=== PATIENT | female | born 1995 | race Caucasian/White ===

== ENCOUNTER → 2019-08-14 14:01 | Outpatient (CLI) | payer BC, SELFPAY ==
--- NOTE | 2019-08-14 14:27 | XR_ITS ---
PROCEDURE: XR CHEST AP CLINICAL HISTORY: chest congestion Cough and congestion COMPARISON: CXR CHEST(2 VIEWS-NOT PORTABLE) from 08/16/2015 CXR1 CHEST-PORTABLE from 08/09/2017 CXR2V XR chest 2V from 10/11/2018 FINDINGS: The cardiomediastinal silhouette and pulmonary vascularity are within normal limits. The lungs are clear without infiltrates, suspicious nodules, or pleural effusions. Roldan rods are present in the mid lower thoracic spine. IMPRESSION: No acute findings. Dictated by: Renzo Kwan MD 08/14/2019 17:59 Electronically signed by Renzo Kwan MD in [place] 08/14/2019 17:59
[2019-08-14 14:37] LABS: Basophils % 0.4 % (0.1-2.0); Eosinophils # 0.1 K/mm3 (0.0-0.4); Eosinophils % 0.7 % (0.1-12.0); Hematocrit 38.4 % (37.0-47.0); Lymphocytes # 1.5 K/mm3 (0.7-4.5); Lymphocytes % 18.2 % (10-50); Mean Corpuscular HGB Conc 31.2 g/dL (31.8-35.4); Mean Corpuscular Hemoglobin 28.2 pg (27.0-31.2); Mean Corpuscular Volume 90.5 fl (81-99); Mean Platelet Volume 7.7 fl (7.4-10.4); Monocytes # 0.6 K/mm3 (0.1-1.0); Neutrophils # 6.1 K/mm3 (1.8-7.8); Neutrophils % 73.8 % (37.0-80.0); Platelet Count 261 K/mm3 (142-424); Red Blood Count 4.25 M/mm3 (4.20-5.40); Red Cell Distribution Width 13.7 % (11.5-17.5); White Blood Count 8.3 K/mm3 (4.8-10.8)
[2019-08-14 15:29] LABS: Monoscreen (Rapid) Negative (Negative)
[2019-08-14 15:46] LABS: Alanine Aminotransferase 11 U/L (12-78); Albumin/Globulin Ratio 1.1 (1.1-1.8); Alkaline Phosphatase 68 U/L (46-116); Anion Gap 15.9 mEq/L (5-15); Aspartate Amino Transferase 8 U/L (15-37); Bilirubin,Total 0.4 mg/dL (0.2-1.0); Blood Urea Nitrogen 12 mg/dL (7-18); Calcium 8.9 mg/dL (8.5-10.1); Carbon Dioxide 27 mmol/L (21.0-32.0); Chloride 102 mmol/L (98-107); Creatinine,Serum 0.63 mg/dL (0.55-1.02); Estimated Glomerular Filt Rate 116 ml/min (>60); GFR (African American) 140 ML/MIN (>60); Globulin 3.7 gm/dl (1.3-3.2); Glucose 85 mg/dL (74-106); Potassium 3.9 mmoL/L (3.5-5.1); Sodium 141 mmol/L (136-145); Total Protein,Serum 7.7 gm/dL (6.4-8.2)
== END ==
PROVIDERS: PCP Emergency Medicine; Visit Provider Nurse Practitioner Family
DX: R05 Cough (principal)
CPT/HCPCS: 36415; 71045; 80053; 85025; 86318

== ENCOUNTER → 2019-10-24 14:27 | Outpatient (CLI) | payer BC, SELFPAY ==
[2019-10-24 15:58] LABS: T4 (Thyroxine) 8.2 ug/dl (4.7-13.3); Thyroid Stimulating Hormone 0.54 uIU/ml (0.358-3.740)
== END ==
PROVIDERS: Visit Provider Nurse Practitioner Family
DX: R53.83 Other fatigue (principal)
CPT/HCPCS: 36415; 84436; 84443

== ENCOUNTER → 2020-07-09 15:34 | Outpatient (CLI) | payer BC, SELFPAY ==
[2020-07-09 16:01] LABS: Coronavirus 19 IgG Antibody Negative (Negative); Coronavirus 19 IgM Antibody Negative (Negative)
== END ==
PROVIDERS: Visit Provider Nurse Practitioner Family
DX: Z01.84 Encounter for antibody response examination (principal)
CPT/HCPCS: 86328

== ENCOUNTER → 2020-09-03 19:15 | Outpatient (CLI) | payer BC, SELFPAY ==
[2020-09-04 08:03] LABS: Adenovirus,PCR Not Detected (NotDetected); Bordetella Pertussis Not Detected (NotDetected); Chlamydophila Pneumoniae, PCR Not Detected (NotDetected); Coronavirus 19, PCR Not Detected (NotDetected); Coronavirus 229E Not Detected (NotDetected); Coronavirus NL63 Not Detected (NotDetected); Coronavirus OC43 Not Detected (NotDetected); Coronovirus HKU1,PCR Not Detected (NotDetected); Human Metapneumovirus Not Detected (NotDetected); Influenza A, PCR Not Detected (NotDetected); Influenza AH1, 2009 Not Detected (NotDetected); Influenza AH1, PCR Not Detected (NotDetected); Influenza AH3,PCR Not Detected (NotDetected); Influenza B, PCR Not Detected (NotDetected); Mycoplasma Pneumoniae, PCR Not Detected (NotDetected); Parainfluenza 1, PCR Not Detected (NotDetected); Parainfluenza 2, PCR Not Detected (NotDetected); Parainfluenza 3, PCR Not Detected (NotDetected); Parainfluenza 4, PCR Not Detected (NotDetected); Respiratory Syncytial Virus Not Detected (NotDetected); Rhinovirus/Enterovirus Not Detected (NotDetected)
== END ==
PROVIDERS: PCP Nurse Practitioner Family; Visit Provider Nurse Practitioner Family
DX: Z03.818 Encounter for observation for suspected exposure to other biological agents ruled out (principal); J02.9 Acute pharyngitis, unspecified; R68.83 Chills (without fever)
CPT/HCPCS: 87581; 87633; 87798; U0003; U0004

== ENCOUNTER → 2020-11-13 19:02 | Outpatient (CLI) | payer BC, SELFPAY ==
--- NOTE | 2020-11-14 05:31 | PC.NURSE ---
this pt called to check on covid swab results before coming to work.
== END ==
PROVIDERS: PCP Physician Assistant; Visit Provider Physician Assistant
DX: Z20.822 Contact with and (suspected) exposure to COVID-19 (principal)
CPT/HCPCS: U0003

== ENCOUNTER → 2020-12-02 15:23 | Outpatient (CLI) | payer BC, SELFPAY ==
--- NOTE | 2020-12-02 15:27 | US_ITS ---
PROCEDURE: US GALLBLADDER CLINICAL INDICATION: us gallbladder COMPARISON: No exams were available for comparison FINDINGS: Pancreas: Unremarkable/Not well seen Liver: Unremarkable. There is appropriate direction of blood flow within a non dilated portal vein. Right kidney: Unremarkable appearing. No hydronephrosis. Gallbladder: No stones are evident. There is no gallbladder wall thickening. Common duct is normal in diameter. IMPRESSION: Negative gallbladder ultrasound. No stones evident. Dictated by: Renzo Kwan MD 12/02/2020 16:22 Renzo Kwan MD in [place] 12/02/2020 16:22
== END ==
PROVIDERS: PCP Nurse Practitioner Family; Visit Provider Nurse Practitioner Family
DX: R10.9 Unspecified abdominal pain (principal)
CPT/HCPCS: 76705

== ENCOUNTER → 2020-12-17 10:19 | Outpatient (CLI) | payer BC, SELFPAY ==
--- NOTE | 2020-12-17 10:19 | NM_ITS ---
PROCEDURE: NM HEPATOBILIARY W PHARM CLINICAL INDICATION: abd pain COMPARISON: Gallbladder ultrasound 12/02/2020 FINDINGS: 8.36 millicuries technetium 99 Choletechnitate was administered followed by image acquisition. Gallbladder is visible by 5 minutes. Duodenum visible by 25 minutes. 1.4 micrograms of cholecystokinin was injected followed by post injection image acquisition which shows 30 minute ejection fraction of 76 percent, within normal limits. Patient experienced mild cramping during cholecystokinin administration. IMPRESSION: Normal exam Dictated by: Karen Sims MD 12/17/2020 14:37 Karen Sims MD in [place] 12/17/2020 14:37
== END ==
PROVIDERS: PCP Nurse Practitioner Family; Visit Provider Nurse Practitioner Family
DX: R10.9 Unspecified abdominal pain (principal)
CPT/HCPCS: 78227; A9537; J2805

== ENCOUNTER → 2020-12-18 11:14 | Outpatient (CLI) | payer BC, SELFPAY ==
[2020-12-20 01:07] LABS: H. pylori Breath Test Negative (Negative)
== END ==
PROVIDERS: Visit Provider Nurse Practitioner Family
DX: R12 Heartburn (principal)
CPT/HCPCS: 83013

== ENCOUNTER → 2020-12-23 11:14 | Outpatient (CLI) | payer BC, SELFPAY ==
[2020-12-23 12:04] LABS: Urine Pregnancy, HCG Qual. Negative (Negative)
[2020-12-23 12:48] LABS: Coronavirus 19 IgG Antibody Positive (Negative); Coronavirus 19 IgM Antibody Negative (Negative)
== END ==
PROVIDERS: Visit Provider Internal Medicine Gastroenterology
DX: Z01.818 Encounter for other preprocedural examination (principal); Z20.822 Contact with and (suspected) exposure to COVID-19; Z13.810 Encounter for screening for upper gastrointestinal disorder; R10.13 Epigastric pain
CPT/HCPCS: 36415; 81025; 86328

== ENCOUNTER 2020-12-25 09:06 | Day surgery (SDC) | payer BC, SELFPAY ==
[2020-12-23 09:55] VITALS: BMI 24.2
[2020-12-25 09:22] VITALS: BP 139/78; PULSE 115; RESP 20; TEMP 36.5; O2SAT 100
[2020-12-25 10:02] VITALS: O2SAT 97
--- NOTE | 2020-12-25 10:16 | P.PCN_ITS ---
[facility] Procedure Note Procedure Note:: Upper Endoscopy Procedure Report: Esophagogastroduodenoscopy with cold biopsies and TTS balloon dilation Endoscopost: Jose Garcia II, MD Referring Physician: Jordan BORGES Date of Procedure: December 25, 2020 Equipment: Olympus GIF 180 standard upper endoscope Sedation: MAC sedation Indications: Ms. Hyde is a 25-year-old female with burning in the epigastrium since August 2020. She also has burning in her throat with some heartburn/reflux. Omeprazole 20 mg by mouth twice daily helps some. She does report nausea, belching and early satiety. She does get this burning dyspepsia on an empty stomach and eating often helps. She does report some globus sensation with frequent clearance of the throat. She also has some chronic constipation/incomplete bowel evacuation. She will have intermittent dysphagia to breads. Procedure: Prior to the procedure, a history and physical exam was performed, and patient's medications and allergies were reviewed. The risks, benefits and alternatives of the sedation and procedure were discussed with the patient. All questions were answered and informed consent was obtained. The patient was brought to the procedure room. Patient identification and proposed procedure were verified by the physician and the nurse. The patient was placed in a left lateral decubitus position and the scope was passed under direct vision. Throughout the procedure, the patient's blood pressure, pulse, and oxygen saturations were monitored continuously. The upper GI endoscopy was accomplished without difficulty. The patient tolerated the procedure well. Findings: The scope was passed directly into the upper esophagus and advanced to the third portion of the duodenum. The post bulbar duodenum and duodenal bulb were normal with normal mucosa and conniventes. The scope was withdrawn through a normal duodenal bulb and pylorus into the stomach. There was bile reflux with linear reactive gastropathy of the antrum. The remainder of the body and fundus of the stomach were grossly normal. Upon retroflexion there was no hiatal hernia. 2 biopsies were taken in the antrum and along the lesser curvature for histology to rule out gastritis and/or H pylori. The scope was then withdrawn into the esophagus. There was a serrated Z-line consistent with nonerosive GERD. Biopsies were taken at the GE junction. There was no evidence of reflux esophagitis, Cook's or Schatzki's ring. There was strong tertiary contractions and evidence of moderate esophageal dysmotility. The entire esophagus was dilated to 60 Polish/20 mm with a TTS hydrostatic balloon. There was some resistance at the cricopharyngeus/cricopharyngeal spasm. The remainder of the esophageal mucosa was normal. Impression: 1. Cricopharyngeal spasm status post dilation to 20 mm 2. Nonerosive GERD with mild esophageal dysmotility 3. Bile reflux with linear reactive gastropathy Plan: I will follow-up the biopsies. The patient does have functional dyspepsia. This is driven by gas pressure gradients due to her obstipation and colonic fermentation. I will discuss dietary measures, fiber bowel regimen and treatment options.
[2020-12-25 10:18] VITALS: BP 93/59; PULSE 86; RESP 18; TEMP 36.5; O2SAT 97
[2020-12-25 10:28] VITALS: BP 99/70; PULSE 70; RESP 18; O2SAT 100
[2020-12-25 10:38] VITALS: BP 101/73; PULSE 68; RESP 18; O2SAT 100
[2020-12-25 11:05] VITALS: BP 104/63; PULSE 68; RESP 18; O2SAT 100
--- NOTE | 2020-12-25 11:05 | PC.NURSE ---
MIRILAX AND METAMUCIL DAILY, DIET SHEET PROVIDED, REGLAN SCRIPT
--- NOTE | 2020-12-25 16:02 | P.PN_ITS ---
[facility] Anesthesia Checklist - Patient Identification Patient Identification: Arm Band, Verbal (Name & ) - Structural Data Admitted From: Home Planned Operative Procedure/s: egd Consent for Planned Operative Procedure(s) Verified: Yes Verified Documents: Surgical Consent - Anesthesia Plan Anesthesia Risk discussed: Yes Anesthesia Plan: Verified ASA Class: I Anesthesia Type: General [facility] History I have reviewed the patient's past medical history: Yes Medical History: Reports:: Anxiety Denies:: Cancer, Diabetes Mellitus Type 1, Diabetes Mellitus Type 2, Internal Pacemaker, MRSA, Seizures *Have you ever received a pneumonia vaccine?: No *Have you received a flu vaccine this season?: Yes Other Medical History: Reports: Other Anesthesia experience/problems:: none Laterality Cases: Bilateral: Other Other Surgeries: Yes: Other. No: Pacemaker Amputation: No Fractures: No - *Social History Last grade of school completed: Advanced degree Smoking Status: Never smoker Alcohol Intake: never Substance Use Type: denies use *Occupational Status:: employed Housing: house Household Members: spouse *Travel in the last 8 weeks: None - Psychiatric History Pschychiatric History:: Reports:: Anxiety Family Hx:: Cancer
== END 2020-12-25 11:06 | disposition home or self-care (01) ==
PROVIDERS: PCP Nurse Practitioner Family; Visit Provider Internal Medicine Gastroenterology
PROC: 0DJ08ZZ Inspection of Upper Intestinal Tract, Via Natural or Artificial Opening Endoscopic (ICD-10-PCS; CPT 43235; principal; 2020-12-25 10:00)
DX: J39.2 Other diseases of pharynx (principal); K21.9 Gastro-esophageal reflux disease without esophagitis; K22.4 Dyskinesia of esophagus; K31.9 Disease of stomach and duodenum, unspecified; F41.9 Anxiety disorder, unspecified; Z80.3 Family history of malignant neoplasm of breast; Z80.1 Family history of malignant neoplasm of trachea, bronchus and lung; Z87.39 Personal history of other diseases of the musculoskeletal system and connective tissue; Z79.899 Other long term (current) drug therapy
CPT/HCPCS: 43239; 43249; C1726

== ENCOUNTER 2021-02-24 14:56 | Emergency (ER) | payer BC, SELFPAY ==
[2021-02-24 15:11] VITALS: BP 134/114; PULSE 97; RESP 16; TEMP 37; O2SAT 100; BMI 23.6
[2021-02-24 15:27] LABS: UTC Strep Screen (Rapid) Negative (Negative)
[2021-02-24 15:28] VITALS: BP 134/114; PULSE 97; RESP 16; TEMP 37; O2SAT 100
--- NOTE | 2021-02-24 15:28 | XR_ITS ---
PROCEDURE: XR CHEST 2V CLINICAL HISTORY: COUGH COMPARISON: CR CXR1 CHEST-PORTABLE from 08/09/2017 CR CXR2V XR chest 2V from 10/11/2018 CR XR CHEST AP from 08/14/2019 FINDINGS: The cardiomediastinal silhouette and pulmonary vascularity are within normal limits. The lungs are clear without infiltrates, suspicious nodules, or pleural effusions. Roldan rods are present in the thoracolumbar region with inter pedicular screws at L1 and L2. IMPRESSION: No change with no acute finding Dictated by: Renzo Kwan MD 02/24/2021 16:09 Renzo Kwan MD in [place] 02/24/2021 16:09
[2021-02-24 15:33] LABS: Adenovirus,PCR Not Detected (NotDetected); Bordetella Pertussis Not Detected (NotDetected); Chlamydophila Pneumoniae, PCR Not Detected (NotDetected); Coronavirus 19, PCR Not Detected (NotDetected); Coronavirus 229E Not Detected (NotDetected); Coronavirus NL63 Not Detected (NotDetected); Coronavirus OC43 Not Detected (NotDetected); Coronovirus HKU1,PCR Not Detected (NotDetected); Human Metapneumovirus Not Detected (NotDetected); Influenza A, PCR Not Detected (NotDetected); Influenza AH1, 2009 Not Detected (NotDetected); Influenza AH1, PCR Not Detected (NotDetected); Influenza AH3,PCR Not Detected (NotDetected); Influenza B, PCR Not Detected (NotDetected); Mycoplasma Pneumoniae, PCR Not Detected (NotDetected); Parainfluenza 1, PCR Not Detected (NotDetected); Parainfluenza 2, PCR Not Detected (NotDetected); Parainfluenza 3, PCR Not Detected (NotDetected); Parainfluenza 4, PCR Not Detected (NotDetected); Respiratory Syncytial Virus Not Detected (NotDetected); Rhinovirus/Enterovirus Not Detected (NotDetected)
--- NOTE | 2021-02-24 15:36 | HMH.EDUTC ---
[facility] [place] Clinical Impression: Acute bronchitis Qualifiers: Bronchitis organism: unspecified organism Qualified Code(s): J20.9 - Acute bronchitis, unspecified Disposition: Home, Self-Care Condition on Discharge: Good Instructions: DI for Acute Bronchitis Additional Instructions: Drink plenty of fluids. Take tylenol or ibuprofen for pain or fever. Take the medications as directed. Follow up with your regular doctor. GO TO THE ER FOR ANY WORSENING SYMPTOMS Prescriptions: Promethazine/Dextromethorphan [Promethazine-Dm Syrup] 5 ml PO Q6HP PRN #240 syrup PRN Reason: Cough Transmission Status: Received by [id number] methylPREDNISolone [Medrol] 4 mg PO DIRECTED 6 Days #21 tab.ds.pk Transmission Status: Received by [id number] Azithromycin [Z-Reese 250mg Tab*] 250 mg PO UD DOSE PK #6 tab Transmission Status: Received by [id number] Time of Disposition: 16:04 Medical Decision Making - Medical Records Medical records reviewed: No: I reviewed the patient's medical records. - Bobby Inquiry Pt receiving controlled substance: No Vital Signs: 02/24/21 15:11 02/24/21 15:28 Temperature 98.6 F 98.6 F Temperature Source Oral Pulse Rate 97 H Pulse Rate [Left] 97 H Respiratory Rate 16 16 Blood Pressure 134/114 H Blood Pressure [Right Arm] 134/114 H Blood Pressure Mean [Right Arm] 120 Blood Pressure Source [Right Arm] Automatic Cuff Blood Pressure Position [Right Arm] Sitting 02 Sat by Pulse Oximetry 100 Oxygen Delivery Method Room Air - Lab Data Lab Results 02/24/21 15:00: Chlamy pneumoniae PCR Not detected, Adenovirus (PCR) Not detected, B. pertussis DNA (PCR) Not detected, Coronavirus OC43 (PCR) Not detected, Coronavirus HKU1 (PCR) Not detected, Coronavirus 229E (PCR) Not detected, SARS-CoV-2 (PCR) Not detected, Coronavirus NL63 (PCR) Not detected, Human Metapneumovir PCR Not detected, Influenza A (H1) PCR Not detected, Influ A (H1N1/09) PCR Not detected, Influenza A (H3) PCR Not detected, Influenza Type A (PCR) Not detected, Influenza Type B (PCR) Not detected, M. pneumoniae (PCR) Not detected, Parainfluenza 1 (PCR) Not detected, Parainfluenza 2 (PCR) Not detected, Parainfluenza 3 (PCR) Not detected, Parainfluenza 4 (PCR) Not detected, RSV (PCR) Not detected, Entero/Rhino (PCR) Not detected 02/24/21 15:25: Strep Scn Rapid Clinic Negative Orders (Tests/Meds): ORDERS Category Date Time Status Strep Screen Confirmation Stat Micro 02/24/21 15:25 Received [facility] [place] HPI - General Stated complaint: cough,fever Time Seen by Provider: 02/24/21 15:36 Mode of Arrival: Ambulatory Source of Information: Patient Limitations: No Limitations Description of Symptoms (Recalled from Triage Doc. by RN): Cough, fever and congestion HEENT Symptoms (Recalled from RN notes): Yes Resp Symptoms (Recalled from RN notes): Yes Skin Symptoms (Recalled from RN notes): No MS Symptoms (Recalled from RN notes): No Functional Status (Recalled from RN notes): wnl - History of Present Illness Provider Complaint: She states that for the past 2 days she has had chest congestion and sinus congestion. 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 - Related Data Home Medications Medication Instructions Recorded Confirmed Buspirone HCl [Buspar 5mg tablet] 5 mg PO BID 12/23/20 12/23/20 Omeprazole [Omeprazole 20mg 20 mg PO BID 12/23/20 12/23/20 Capsule] Previous Rx's Medication Instructions Recorded Azithromycin [Z-Reese 250mg Tab*] 250 mg PO UD DOSE PK #6 tab 02/24/21 Promethazine/Dextromethorphan 5 ml PO Q6HP PRN #240 syrup 02/24/21 [Promethazine-Dm Syrup] methylPREDNISolone [Medrol] 4 mg PO DIRECTED 6 Days #21 02/24/21 tab.ds.pk Allergies Allergy/AdvReac Type Severity Reaction Status Date / Time No Known Allergies Allergy Verified 02/24/21 15:15 - Worker's Comp 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
== END 2021-02-24 16:06 | disposition home or self-care (01) ==
PROVIDERS: Emergency Provider Nurse Practitioner Family; PCP Nurse Practitioner Family
DX: J20.9 Acute bronchitis, unspecified (principal); Z20.822 Contact with and (suspected) exposure to COVID-19; F41.9 Anxiety disorder, unspecified; Z79.899 Other long term (current) drug therapy
CPT/HCPCS: 71046; 87581; 87633; 87798; 87880; 99202; G0463

== ENCOUNTER → 2021-03-22 09:49 | Outpatient (POV) | payer BC, SELFPAY | PROVIDERS: Visit Provider Nurse Practitioner Family | DX: Z00.00 Encounter for general adult medical examination without abnormal findings (principal) ==

== ENCOUNTER → 2021-04-14 14:46 | Outpatient (CLI) | payer OTHER, SELFPAY ==
[2021-04-14 18:05] LABS: HCG,Quantitative 86 mIU/ml (0-5.42)
== END ==
PROVIDERS: Visit Provider Obstetrics & Gynecology
DX: Z32.01 Encounter for pregnancy test, result positive (principal)
CPT/HCPCS: 36415; 84702

== ENCOUNTER → 2021-04-16 10:15 | Outpatient (CLI) | payer OTHER, SELFPAY ==
[2021-04-16 11:48] LABS: HCG,Quantitative 241 mIU/ml (0-5.42)
== END ==
PROVIDERS: Visit Provider Obstetrics & Gynecology
DX: Z32.01 Encounter for pregnancy test, result positive (principal)
CPT/HCPCS: 36415; 84702

== ENCOUNTER → 2021-05-01 10:13 | Outpatient (CLI) | payer OTHER, SELFPAY ==
[2021-05-01 11:00] LABS: HCG,Quantitative 1086 mIU/ml (0-5.42)
== END ==
PROVIDERS: Visit Provider Obstetrics & Gynecology
DX: Z32.00 Encounter for pregnancy test, result unknown (principal)
CPT/HCPCS: 36415; 84702

== ENCOUNTER → 2021-05-04 09:24 | Outpatient (CLI) | payer OTHER, SELFPAY ==
[2021-05-04 10:57] LABS: HCG,Quantitative 236 mIU/ml (0-5.42)
== END ==
PROVIDERS: Visit Provider Obstetrics & Gynecology
DX: Z34.90 Encounter for supervision of normal pregnancy, unspecified, unspecified trimester (principal)
CPT/HCPCS: 36415; 84702

== ENCOUNTER 2021-07-21 19:16 | Emergency (ER) | payer OTHER, SELFPAY ==
[2021-07-21 19:19] VITALS: BP 137/91; PULSE 96; RESP 18; TEMP 36.6; O2SAT 100; BMI 25.0
[2021-07-21 19:30] LABS: Coronavirus 19, PCR Not Detected (NotDetected); Influenza A, PCR Not Detected (NotDetected); Influenza B, PCR Not Detected (NotDetected)
--- NOTE | 2021-07-21 19:30 | HMH.EDUTC ---
[facility] [place] Clinical Impression: Sinusitis Qualifiers: Sinusitis location: unspecified location Chronicity: unspecified Qualified Code(s): J32.9 - Chronic sinusitis, unspecified Disposition: Home, Self-Care Condition on Discharge: Good Instructions: Sinusitis, DI for Sinusitis, Amoxicillin and Clavulanic Acid Additional Instructions: *Monitor Temp, Over the counter Motrin or Tylenol as directed/as needed Tylenol every 4 hours and Motrin every 6 hours (as long as your family doctor has told you that you can take it) for fever or pain. and straight to ER if unable to lower temp less than 101.0 after medication given *Warm salt water gargles may help to soothe the throat *Throat Lozenges *Warm fluids like tea with honey may help to soothe the throat *Sleep elevated *Humidifier/Vaporizer Take medication as prescribed Follow up with OBGYN for further evaluation Follow up IMMEDIATELY for new or worsening symptoms or no Noticeable improvement over the next 48-72 hours. 911 for difficulty breathing or swallowing You were tested for today for COVID19 your test result should be back in the next 24-48 hours, you was give handout on how to check your results on [facility] Portal if you are unable to access it you may call You was given a handout with instructions for Self Quarantine and Self isolation for while you wait on test results and what to do if they are positive If you are positive the Health Dept will be contacting you also Make sure to take your Vitamins Vit. C Vit D and Zinc if you can take them Prescriptions: Amoxicillin/Potassium Clav [Augmentin 875-125 Tablet] 1 tab PO Q12H 7 Days #14 tab Transmission Status: Received by [id number] Referrals: Delfino Tovar APRN [Primary Care Provider] - As needed Alley Trotter MD [Staff Physician] - Wagner Veronica MD [Staff Physician] - Time of Disposition: 20:13 Medical Decision Making - Bobby Inquiry Pt receiving controlled substance: No Bobby was queried for this patient: No Vital Signs: 07/21/21 19:19 07/21/21 19:53 Temperature 97.9 F 97.9 F Temperature Source Oral Pulse Rate 96 H Pulse Rate [Left] 96 H Respiratory Rate 18 18 Blood Pressure 137/91 H Blood Pressure [Right Arm] 137/91 H Blood Pressure Mean [Right Arm] 106 02 Sat by Pulse Oximetry 100 - Lab Data Lab results reviewed: Yes: I reviewed the patient's lab results. Lab Results 07/21/21 19:25: SARS-CoV-2 (PCR) Not detected, Influenza A Untype (PCR) Not detected, Influenza Type B (PCR) Not detected 07/21/21 19:30: Tst Clinic Positive 07/21/21 19:48: Serum HCG, Qual Positive Orders (Tests/Meds): ED MEDICATIONS Discontinued Medications Generic Name Dose Route Start Last Admin Trade Name Freq PRN Reason Stop Dose Admin Amoxicillin/Clavulanate Potassium 1 each 07/21/21 20:11 07/21/21 20:15 Amoxicillin/Pot Clavulan 500mg Tablet PO 07/21/21 20:12 1 each ONCE ONE Administration ORDERS Category Date Time Status HCG,Quantitative Stat Lab 07/21/21 19:48 Received Medical Decision Narrative: Urine test in [facility] showed positive result Quantitative and Qualitative blood drawn for confirmation Medication augmentin discussed with pharmacy to assure baby safe due to positive Urine in [facility] patient quant/qual not complete called lab and adbised would still be about 20 min before done and patient advised that she would call back to the [facility] for the results Patient notifed of Qualitative positive result an recommended follow up with OBGYN [facility] [place] - General Stated complaint: cough, sinus pressure Time Seen by Provider: 07/21/21 19:31 Mode of Arrival: Ambulatory Source of Information: Patient Limitations: No Limitations Description of Symptoms (Recalled from Triage Doc. by RN): PT C/O A DRY COUGH, CONGESTION AND SINUS PRESSURE. HEENT Symptoms (Recalled from RN notes): Yes (SINUS PRESSURE AND CONGESTION) Resp Symptoms (Recall
[2021-07-21 19:53] VITALS: BP 137/91; PULSE 96; RESP 18; TEMP 36.6
[2021-07-21 19:54] LABS: UTC Pregnancy Test, Urine Positive (Negative)
[2021-07-21 20:26] LABS: HCG Qualitative, Serum Positive (Negative)
[2021-07-21 20:44] LABS: HCG,Quantitative 27 mIU/ml (0-5.42)
== END 2021-07-21 20:47 | disposition home or self-care (01) ==
PROVIDERS: Emergency Provider Nurse Practitioner; PCP Nurse Practitioner Family
DX: J32.9 Chronic sinusitis, unspecified (principal); Z20.822 Contact with and (suspected) exposure to COVID-19; Z34.90 Encounter for supervision of normal pregnancy, unspecified, unspecified trimester; F41.9 Anxiety disorder, unspecified
CPT/HCPCS: 81025; 84702; 84703; 99202; C9803; G0463; U0003; U0005

== ENCOUNTER → 2021-07-26 11:02 | Outpatient (CLI) | payer OTHER, SELFPAY ==
[2021-07-26 12:52] LABS: HCG,Quantitative 248 mIU/ml (0-5.42)
== END ==
PROVIDERS: Visit Provider Obstetrics & Gynecology
DX: Z34.90 Encounter for supervision of normal pregnancy, unspecified, unspecified trimester (principal)
CPT/HCPCS: 36415; 84702

== ENCOUNTER → 2021-08-01 13:34 | Outpatient (CLI) | payer OTHER, SELFPAY ==
[2021-08-01 14:25] LABS: HCG,Quantitative 2817 mIU/ml (0-5.42)
== END ==
PROVIDERS: Visit Provider Obstetrics & Gynecology
DX: Z34.90 Encounter for supervision of normal pregnancy, unspecified, unspecified trimester (principal)
CPT/HCPCS: 84702

== ENCOUNTER → 2021-08-18 12:47 | Outpatient (CLI) | payer OTHER, SELFPAY ==
--- NOTE | 2021-08-18 12:47 | US_ITS ---
PROCEDURE: US OB <= 14 WEEKS FETUS CLINICAL INDICATION: dates COMPARISON: No exams were available for comparison FINDINGS: An intrauterine gestational sac is present with a pole with a crown-rump length of 1.15cm correlating to gestational age of 7weeks 3days. heart tones are present with an FHR of 141bpm. Yolk sac is noted. There is a small amount of cul-de-sac fluid. There is prominent periuterine vasculature IMPRESSION: Live IUP at 7 weeks 3 days. Estimated due date by Ultrasound is 04/03/2022 Dictated by: Renzo Kwan MD 08/18/2021 19:11 Renzo Kwan MD in [place] 08/18/2021 19:11
== END ==
PROVIDERS: PCP Nurse Practitioner Family; Visit Provider Obstetrics & Gynecology
DX: Z34.90 Encounter for supervision of normal pregnancy, unspecified, unspecified trimester (principal)
CPT/HCPCS: 76801

== ENCOUNTER → 2021-08-26 14:47 | Outpatient (CLI) | payer OTHER, SELFPAY ==
[2021-08-26 15:33] LABS: Basophils % 0.4 % (0.1-2.0); Eosinophils # 0.1 K/mm3 (0.0-0.4); Eosinophils % 1.4 % (0.1-12.0); Hematocrit 40.2 % (37.0-47.0); Hemoglobin 13.5 g/dL (12.2-16.2); Lymphocytes # 2.3 K/mm3 (0.7-4.5); Lymphocytes % 29.3 % (10-50); Mean Corpuscular HGB Conc 33.5 g/dL (31.8-35.4); Mean Corpuscular Hemoglobin 30.6 pg (27.0-31.2); Mean Corpuscular Volume 91.2 fl (81-99); Mean Platelet Volume 7.8 fl (7.4-10.4); Monocytes # 0.4 K/mm3 (0.1-1.0); Monocytes % 5.3 % (1.7-9.3); Neutrophils # 4.9 K/mm3 (1.8-7.8); Neutrophils % 63.5 % (37.0-80.0); Platelet Count 319 K/mm3 (142-424); Red Blood Count 4.41 M/mm3 (4.20-5.40); Red Cell Distribution Width 12.9 % (11.5-17.5); White Blood Count 7.7 K/mm3 (4.8-10.8)
[2021-08-26 16:14] LABS: Amphetamine/Metha Screen,Urine Negative ng/ml (<1000)
[2021-08-26 16:15] LABS: Barbiturates Screen,Urine Negative ng/ml (<200); Benzodiazepines Screen,Urine Negative ng/ml (<200)
[2021-08-26 16:16] LABS: Cannabinoid Screen,Urine Negative ng/ml (<50)
[2021-08-26 16:17] LABS: Cocaine Screen,Urine Negative ng/ml (<300); Methadone Screen,Urine Negative ng/ml (<300)
[2021-08-26 16:18] LABS: Opiate Screen,Urine Negative ng/ml (<300); Phencyclidine Screen,Urine Negative ng/ml (<25)
[2021-08-28 08:13] LABS: HIV Screen 4th Generation wRfx Non Reactive (Non Reactive); Hepatitis B Surface Antigen Negative (Negative); Hepatitis C Antibody <0.1 s/co ratio (0.0-0.9)
[2021-08-28 10:32] LABS: Rapid Plasma Reagin Ab Titer Non Reactive (NonRea<1:1)
[2021-08-29 07:22] LABS: Rubella Antibodies, IgG 2.27 index (Immune >0.99)
== END ==
PROVIDERS: Visit Provider Obstetrics & Gynecology
DX: Z34.90 Encounter for supervision of normal pregnancy, unspecified, unspecified trimester (principal)
CPT/HCPCS: 36415; 80305; 85025; 86592; 86703; 86762; 86850; 87340; 87380; G0432

== ENCOUNTER → 2021-09-22 20:29 | Outpatient (CLI) | payer OTHER, SELFPAY ==
[2021-09-22 20:33] LABS: Coronavirus 19, PCR Not Detected (NotDetected); Influenza A, PCR Not Detected (NotDetected); Influenza B, PCR Not Detected (NotDetected)
== END ==
PROVIDERS: Visit Provider Nurse Practitioner Family
DX: Z20.822 Contact with and (suspected) exposure to COVID-19 (principal)
CPT/HCPCS: C9803; U0003; U0005

== ENCOUNTER → 2021-11-11 14:47 | Outpatient (CLI) | payer OTHER, SELFPAY ==
--- NOTE | 2021-11-11 14:47 | US_ITS ---
FINAL REPORT CLINICAL HISTORY: 20 week anatomy FINDINGS: Sonographic images of the gravid uterus were obtained. There is a single living intrauterine . Heart rate was detected at 146 bpm. The biparietal diameter is 4.74 cm consistent with 20 week 3 day gestation. The head circumference is 17.13 centimeters consistent with 19 weeks 6 day gestation. The abdominal circumference is 14.62 cm consistent with 20 weeks 0 day gestation. The femur length is 3.17 cm consistent with 19 week 6 day gestation. The average ultrasound age is 20 week 1 day gestation. The fetus is in breech position. The placenta is anterior. There is a normal amount of amniotic fluid present. The estimated weight is 319 g. IMPRESSION: Single living intrauterine . Reviewed, Interpreted and Dictated by Gianfranco Armando III, MD Transcribed by Izabella Moss Authenticated by Gianfranco Armando III, MD on 11/11/2021 04:36:45 PM [facility]
== END ==
PROVIDERS: PCP Nurse Practitioner Family; Visit Provider Obstetrics & Gynecology
DX: Z34.90 Encounter for supervision of normal pregnancy, unspecified, unspecified trimester (principal)
CPT/HCPCS: 76805

== ENCOUNTER → 2021-12-10 16:00 | Outpatient (CLI) | payer OTHER, SELFPAY | PROVIDERS: Visit Provider Obstetrics & Gynecology | DX: U07.1 COVID-19 (principal) | CPT/HCPCS: C9803; U0003; U0005 ==

== ENCOUNTER 2021-12-18 08:43 | Outpatient (CLI) | payer OTHER, SELFPAY ==
[2021-12-18 09:03] VITALS: BMI 27.4
[2021-12-18 09:15] VITALS: BMI 27.4
[2021-12-18 09:21] LABS: POC Glucose,Bedside 78 (70-110)
[2021-12-18 09:35] VITALS: BP 117/77; PULSE 94; RESP 20; TEMP 36.9; O2SAT 100
[2021-12-18 09:59] LABS: Basophils % 0.3 % (0.1-2.0); Eosinophils # 0.2 K/mm3 (0.0-0.4); Eosinophils % 2.3 % (0.1-12.0); Hematocrit 34.4 % (37.0-47.0); Hemoglobin 11.6 g/dL (12.2-16.2); Lymphocytes # 1.5 K/mm3 (0.7-4.5); Lymphocytes % 20.1 % (10-50); Mean Corpuscular HGB Conc 33.8 g/dL (31.8-35.4); Mean Corpuscular Hemoglobin 29.7 pg (27.0-31.2); Mean Corpuscular Volume 87.8 fl (81-99); Mean Platelet Volume 7.5 fl (7.4-10.4); Monocytes # 0.3 K/mm3 (0.1-1.0); Monocytes % 3.4 % (1.7-9.3); Neutrophils # 5.4 K/mm3 (1.8-7.8); Neutrophils % 73.9 % (37.0-80.0); Platelet Count 235 K/mm3 (142-424); Red Blood Count 3.91 M/mm3 (4.20-5.40); Red Cell Distribution Width 13.9 % (11.5-17.5); White Blood Count 7.3 K/mm3 (4.8-10.8)
[2021-12-18 10:00] LABS: Chloride 102 mmol/L (98-107); Sodium 131 mmol/L (136-145)
[2021-12-18 10:03] LABS: Blood Urea Nitrogen 8 mg/dl (7-17); Calcium 8.4 mg/dl (8.4-10.2); Carbon Dioxide 25 mmol/L (22.0-30.0); Creatinine Clearance Estimated 259 mL/min (50-200); Estimated Glomerular Filt Rate 193 ml/min (>60); GFR (African American) 233 ML/MIN (>60); Glucose 84 mg/dl (74-100)
== END 2021-12-18 11:10 | disposition home or self-care (01) ==
LOC: OBOUT 08:44 → OB 09:02
PROVIDERS: Nurse Practitioner Obstetrics & Gynecology; PCP Nurse Practitioner Family; Visit Provider Obstetrics & Gynecology
DX: O26.892 Other specified pregnancy related conditions, second trimester (principal); Z3A.25 25 weeks gestation of pregnancy; R42 Dizziness and giddiness; R11.0 Nausea
CPT/HCPCS: 59025; 80048; 82962; 85025; 96365; G0463

== ENCOUNTER → 2021-12-21 15:42 | Outpatient (CLI) | payer OTHER, SELFPAY | PROVIDERS: Visit Provider Obstetrics & Gynecology | DX: Z34.90 Encounter for supervision of normal pregnancy, unspecified, unspecified trimester (principal) | CPT/HCPCS: 87086 ==

== ENCOUNTER → 2022-01-06 09:51 | Outpatient (CLI) | payer OTHER, SELFPAY ==
[2022-01-06 10:16] LABS: Basophils # 0.1 K/mm3 (0-0.2); Eosinophils # 0.2 K/mm3 (0.0-0.4); Eosinophils % 2.2 % (0.1-12.0); Hematocrit 34.6 % (37.0-47.0); Hemoglobin 11.5 g/dL (12.2-16.2); Lymphocytes # 1.7 K/mm3 (0.7-4.5); Lymphocytes % 22.1 % (10-50); Mean Corpuscular HGB Conc 33.1 g/dL (31.8-35.4); Mean Corpuscular Volume 90.6 fl (81-99); Monocytes # 0.3 K/mm3 (0.1-1.0); Monocytes % 3.9 % (1.7-9.3); Neutrophils # 5.5 K/mm3 (1.8-7.8); Neutrophils % 70.8 % (37.0-80.0); Platelet Count 220 K/mm3 (142-424); Red Blood Count 3.82 M/mm3 (4.20-5.40); Red Cell Distribution Width 15.5 % (11.5-17.5); White Blood Count 7.8 K/mm3 (4.8-10.8)
[2022-01-06 10:32] LABS: Glucose,Fasting 79 mg/dl (74-100)
[2022-01-06 11:47] LABS: Glucose 1 Hour 135 mg/dL (74-100)
== END ==
PROVIDERS: Visit Provider Obstetrics & Gynecology
DX: Z34.90 Encounter for supervision of normal pregnancy, unspecified, unspecified trimester (principal)
CPT/HCPCS: 36415; 82951; 85025

== ENCOUNTER 2022-01-14 09:44 | Emergency (ER) | payer OTHER, SELFPAY ==
[2022-01-14 11:15] VITALS: BP 117/85; PULSE 109; RESP 20; TEMP 37.2; O2SAT 97; BMI 28.4
[2022-01-14 12:11] LABS: UTC Strep Screen (Rapid) Positive (Negative)
--- NOTE | 2022-01-14 12:32 | HMH.EDUTC ---
[facility] [place] Disposition Clinical Impression: Strep pharyngitis, Right otitis media Qualifiers: Otitis media type: suppurative Chronicity: acute Recurrence: recurrent Spontaneous tympanic membrane rupture: without spontaneous rupture Qualified Code(s): H66.004 - Acute suppurative otitis media without spontaneous rupture of ear drum, recurrent, right ear Disposition: Home, Self-Care Condition on Discharge: Good Instructions: DI for Strep Throat Additional Instructions: Take all medicines as prescribed until gone Replace toothbrush Prescriptions: Amoxicillin [Amoxicillin 875MG Tab] 875 mg PO Q12H #20 tab Transmission Status: Pending to [facility] Fluconazole [Diflucan 150mg tab] 150 mg PO ONCE 1 Days #1 tab Transmission Status: Pending to [facility] Referrals: Delfino Tovar APRN [Primary Care Provider] - Time of Disposition: 12:37 Medical Decision Making - Bobby Inquiry Pt receiving controlled substance: No Vital Signs: 01/14/22 11:15 Temperature 99.0 F Temperature Source Oral Pulse Rate [Right Brachial] 109 H Respiratory Rate 20 Blood Pressure [Right Arm] 117/85 Blood Pressure Mean [Right Arm] 95 Blood Pressure Source [Right Arm] Automatic Cuff Blood Pressure Position [Right Arm] Sitting 02 Sat by Pulse Oximetry 97 Oxygen Delivery Method Room Air - Lab Data Lab results reviewed: Yes: I reviewed the patient's lab results. Lab Results 01/14/22 11:28: Strep Scn Rapid Clinic Positive [facility] [place] HPI - General Stated complaint: sore throat, ear pain, fever Time Seen by Provider: 01/14/22 12:32 Mode of Arrival: Ambulatory Source of Information: Patient Limitations: No Limitations Description of Symptoms (Recalled from Triage Doc. by RN): PATIENT C/O SORE THROAT, EAR ACHE AND FEVER SINCE MONDAY HEENT Symptoms (Recalled from RN notes): Yes Resp Symptoms (Recalled from RN notes): No Skin Symptoms (Recalled from RN notes): No MS Symptoms (Recalled from RN notes): No Functional Status (Recalled from RN notes): WNL - History of Present Illness Provider Complaint: Right ear pain, sore throat, fever X 3 days. Patient is also . Onset (ago): day(s) (3) Relieving factors: none Exacerbating factors: none Associated symptoms: fever/chills, malaise Treatments prior to arrival: none - Related Data Home Medications Medication Instructions Recorded Confirmed Buspirone HCl [Buspar 5mg tablet] 5 mg PO BID 01/14/22 01/14/22 Previous Rx's Medication Instructions Recorded Amoxicillin [Amoxicillin 875MG 875 mg PO Q12H #20 tab 01/14/22 Tab] Fluconazole [Diflucan 150mg tab] 150 mg PO ONCE 1 Days #1 tab 01/14/22 Allergies Allergy/AdvReac Type Severity Reaction Status Date / Time No Known Allergies Allergy Verified 12/21/21 13:26 - Worker's Comp 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's Comp case?: No [facility] History - Hepatitis A Screen Drug use history?: No High risk sexual behaviors?: No History of sexually transmitted infection?: No Currently employed?: No Childcare worker?: No Do you have indoor plumbing?: Yes Do you have electricity?: Yes Attestation statement:: This patient has been screened for Hepatitis A risk factors. I have reviewed the patient's past medical history: Yes Medical History: Reports:: Anxiety Denies:: Cancer, Diabetes Mellitus Type 1, Diabetes Mellitus Type 2, Internal Pacemaker, MRSA, Seizures Other Medical History: Reports: Other Comment: Scoliosis Laterality Cases: Bilateral: Myringotomy (Ear Tubes), Other Other Surgeries: Yes: Other. No: , Pacemaker Amputation: No Fractures: No Comment: spinal fusion, 2006 - Social History Smoking Status: Never smoker Alcohol Intake: never Substance Use Type: denies use Occupational Status: employed Housing: house Household Members: spouse - Psychiatric History Pschychiatric History:: Reports:: Anxiety Family Hx:: Cancer ROS Obtained: Yes All systems reviewed &
[2022-01-14 12:41] VITALS: BP 117/85; PULSE 109; RESP 20; TEMP 37.2; O2SAT 97
== END 2022-01-14 12:44 | disposition home or self-care (01) ==
PROVIDERS: Emergency Provider Physician Assistant; PCP Nurse Practitioner Family
DX: J02.0 Streptococcal pharyngitis (principal); B95.0 Streptococcus, group A, as the cause of diseases classified elsewhere; H66.004 Acute suppurative otitis media without spontaneous rupture of ear drum, recurrent, right ear; F41.9 Anxiety disorder, unspecified; Z98.1 Arthrodesis status; Z95.0 Presence of cardiac pacemaker; Z80.9 Family history of malignant neoplasm, unspecified
CPT/HCPCS: 87880; 99213; G0463

== ENCOUNTER → 2022-01-17 13:48 | Outpatient (CLI) | payer OTHER, SELFPAY | PROVIDERS: Visit Provider Obstetrics & Gynecology | DX: Z34.90 Encounter for supervision of normal pregnancy, unspecified, unspecified trimester (principal) | CPT/HCPCS: 87086 ==

== ENCOUNTER → 2022-02-15 13:47 | Outpatient (CLI) | payer OTHER, SELFPAY ==
--- NOTE | 2022-02-15 13:48 | US_ITS ---
FINAL REPORT CLINICAL HISTORY: Growth and JESENIA FINDINGS: There is a single live intrauterine gestation. Presentation is cephalic. Placenta is anterior, high, grade 2. movement in practice breathing is seen. Heart rate is 140 beats per minute. AMNIOTIC FLUID: Appropriate amount. JESENIA: 10.4 cm MEASUREMENTS: ULTRASOUND AGE: 34 weeks 2 days. GESTATION AGE: 33 weeks 2 days. ESTIMATED WEIGHT: 2355 g GROWTH PERCENTILE: 68% BPD: 8.5 cm corresponding with 34 weeks 1 days. OFD: 11 cm corresponding with 35 weeks 3 days. HC: 30.1 cm corresponding with 34 weeks 3 days. AC: 30.2 cm corresponding with 34 weeks 2 days. FL: 6.7 cm corresponding with 34 weeks 0 days. HC/AC: 1.02 CI: 77% FL/BPD: 78% FL/AC: 22% BIOPHYSICAL PROFILE BREATHIN MOVEMENT: 2 TONE: 2 FLUID VOLUME: 2 BPP: 06/06 IMPRESSION: Single living IUP with an ultrasound age of 34 weeks 2 days. JESENIA of 10.4 cm. BPP 06/06 Reviewed, Interpreted and Dictated by Gianfranco Armando III, MD Transcribed by Marielena Campos Authenticated by Gianfranco Armando III, MD on 02/15/2022 04:37:20 PM [facility]
== END ==
PROVIDERS: PCP Nurse Practitioner Family; Visit Provider Obstetrics & Gynecology
DX: O36.5990 Maternal care for other known or suspected poor fetal growth, unspecified trimester, not applicable or unspecified (principal)
CPT/HCPCS: 76816

== ENCOUNTER → 2022-03-01 09:41 | Outpatient (CLI) | payer OTHER, SELFPAY | PROVIDERS: Visit Provider Obstetrics & Gynecology | DX: Z34.90 Encounter for supervision of normal pregnancy, unspecified, unspecified trimester (principal) | CPT/HCPCS: 86403 ==

== ENCOUNTER → 2022-03-22 12:02 | Outpatient (CLI) | payer OTHER, SELFPAY | PROVIDERS: Visit Provider Obstetrics & Gynecology | DX: Z01.812 Encounter for preprocedural laboratory examination (principal); Z20.822 Contact with and (suspected) exposure to COVID-19; Z34.90 Encounter for supervision of normal pregnancy, unspecified, unspecified trimester | CPT/HCPCS: C9803; U0003; U0005 ==

== ENCOUNTER 2022-03-23 04:47 | Inpatient (IN) | payer OTHER, SELFPAY ==
[2022-03-23 05:00] VITALS: BMI 29.6
[2022-03-23 05:40] LABS: Microscopic, Urine URINE MICROSCOPIC (MICROSCOPIC)
[2022-03-23 05:42] VITALS: BP 106/73; PULSE 119; RESP 18; TEMP 36.9; O2SAT 98; BMI 29.6
[2022-03-23 05:44] LABS: Appearance,Urine CLEAR (Clear); Bilirubin,Urine Negative (Negative); Blood, Urine TRACE-I (Negative); Color,Urine YELLOW (Yellow); Glucose,Urine (UA) Negative (Negative); Ketones,Urine TRACE (Negative); Leukocyte Esterase,Urine Negative (Negative); Nitrate,Urine Negative (Negative); Protein,Urine Negative (Negative); Specific Gravity, Urine 1.015 (1.005-1.030); Urobilinogen,Urine 0.2 EU/dl (0.2)
[2022-03-23 05:47] LABS: Basophils # 0.1 K/mm3 (0-0.2); Basophils % 1.3 % (0.1-2.0); Eosinophils # 0.1 K/mm3 (0.0-0.4); Eosinophils % 1.2 % (0.1-12.0); Hematocrit 34.1 % (37.0-47.0); Lymphocytes # 2.1 K/mm3 (0.7-4.5); Lymphocytes % 23.3 % (10-50); Mean Corpuscular HGB Conc 35.2 g/dL (31.8-35.4); Mean Corpuscular Hemoglobin 30.6 pg (27.0-31.2); Mean Corpuscular Volume 87.1 fl (81-99); Mean Platelet Volume 8.6 fl (7.4-10.4); Monocytes # 0.5 K/mm3 (0.1-1.0); Monocytes % 5.5 % (1.7-9.3); Neutrophils # 6.1 K/mm3 (1.8-7.8); Neutrophils % 68.7 % (37.0-80.0); Platelet Count 215 K/mm3 (142-424); Red Blood Count 3.92 M/mm3 (4.20-5.40); Red Cell Distribution Width 15.8 % (11.5-17.5); White Blood Count 8.8 K/mm3 (4.8-10.8)
[2022-03-23 05:55] LABS: Barbiturates Screen,Urine Negative ng/ml (<200)
[2022-03-23 05:56] LABS: Benzodiazepines Screen,Urine Negative ng/ml (<200)
[2022-03-23 05:57] LABS: Amphetamine/Metha Screen,Urine Negative ng/ml (<1000); Cannabinoid Screen,Urine Negative ng/ml (<50)
[2022-03-23 05:58] LABS: Cocaine Screen,Urine Negative ng/ml (<300); Methadone Screen,Urine Negative ng/ml (<300)
[2022-03-23 05:59] LABS: Opiate Screen,Urine Negative ng/ml (<300)
[2022-03-23 06:00] LABS: Phencyclidine Screen,Urine Negative ng/ml (<25)
[2022-03-23 06:12] LABS: RBC,Urine Occasional #/hpf (0-3)
[2022-03-23 06:13] LABS: Bacteria,Urine 3+ /lpf
[2022-03-23 07:21] VITALS: BP 115/78; PULSE 103; RESP 16; TEMP 36.6; O2SAT 100
--- NOTE | 2022-03-23 09:41 | P.PN_ITS ---
[facility] Anesthesia Checklist - Patient Identification Patient Identification: Arm Band - Structural Data Admitted From: Inpatient Planned Operative Procedure/s: labor epidural Consent for Planned Operative Procedure(s) Verified: Yes Verified Documents: Surgical Consent, History and Physical - NPO Status Verified Time NPO: 00:00 - Additional verifications Anesthesia Reactions: No - Airway Assessment C-Spine Mobility Assessed: Yes TMJ Mobility Assessed: Yes Dentition: Good Dentition - Neurological Assessment Level of Consciousness: Awake, Alert - Anesthesia Plan Anesthesia Risk discussed: Yes Anesthesia Plan: Verified ASA Class: II Anesthesia Type: Epidural - Preoperative Comments Pre-Operative Comments: Pt with rods in back from corrective scoliosis surgery at age 12. Risks/benefits of MACRINA explained, pt verbalized understanding [facility] History I have reviewed the patient's past medical history: Yes Medical History: Reports:: Anxiety Denies:: Cancer, Diabetes Mellitus Type 1, Diabetes Mellitus Type 2, Internal Pacemaker, MRSA, Seizures *Have you ever received a pneumonia vaccine?: No *Have you received a flu vaccine this season?: Yes Other Medical History: Reports: Other Anesthesia experience/problems:: nac Laterality Cases: Bilateral: Myringotomy (Ear Tubes), Other Other Surgeries: Yes: Other. No: , Pacemaker Amputation: No Fractures: No - *Social History Smoking Status: Never smoker Alcohol Intake: never Substance Use Type: denies use *Occupational Status:: employed Housing: house Household Members: spouse *Travel in the last 8 weeks: None - Psychiatric History Pschychiatric History:: Reports:: Anxiety Family Hx:: Cancer Para: 2
--- NOTE | 2022-03-23 11:14 | HMH.HP ---
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 No: , Pacemaker Amputation: No Fractures: No - *Social History Smoking Status: Never smoker Alcohol Intake: never Substance Use Type: denies use *Occupational Status:: employed Housing: house Household Members: spouse *Travel in the last 8 weeks: None - Psychiatric History Pschychiatric History:: Reports:: Anxiety Family Hx:: Cancer Para: 2 Review of Systems - Review of Systems Review of systems:: pertinent systems reviewed and negative unless documented below - *Genitourinary Denies abnormal vaginal bleeding Meds Home Medications Medication Instructions Recorded Confirmed Type ferrous sulfate 325 mg (65 mg 325 mg PO BID 01/17/22 03/23/22 History iron) tablet,delayed release prenat.vits,hans,tky-suxo-uuhds 1 tab PO DAILY 01/17/22 03/23/22 History ondansetron HCl 4 mg tablet 4 mg PO Q4H PRN tab 02/01/22 03/23/22 History Buspirone HCl [Buspar 5mg tablet] 5 mg PO BID 03/23/22 03/23/22 History Allergies Allergy/AdvReac Type Severity Reaction Status Date / Time No Known Allergies Allergy Verified 03/21/22 11:26 Exam Vital signs and Labs for Last 24 Hours: Temp Pulse Resp BP Pulse Ox 97.8 F 103 H 16 115/78 100 03/23/22 07:21 03/23/22 07:21 03/23/22 07:21 03/23/22 07:21 03/23/22 07:21 Laboratory Results - last 24 hr 03/23/22 05:30: WBC 8.8, RBC 3.92 L, Hgb 12.0 L, Hct 34.1 L, MCV 87.1, MCH 30.6, MCHC 35.2, RDW 15.8, Plt Count 215, MPV 8.6, Neut % (Auto) 68.7, Lymph % (Auto) 23.3, Shackelford % (Auto) 5.5, Eos % (Auto) 1.2, Baso % (Auto) 1.3, Neut # (Auto) 6.1, Lymph # (Auto) 2.1, Shackelford # (Auto) 0.5, Eos # (Auto) 0.1, Baso # (Auto) 0.1 03/23/22 05:30: Urine Color Yellow, Urine Appearance Clear, Urine pH 7.0, Ur Specific Mcdade 1.015, Urine Protein Negative, Urine Glucose (UA) Negative, Urine Ketones Trace, Urine Blood Trace-i, Urine Nitrate Negative, Urine Bilirubin Negative, Urine Urobilinogen 0.2, Ur Leukocyte Esterase Negative, Urine RBC Occasional, Urine WBC 3-5, Ur Squamous Epith Cells 3-5, Urine Bacteria 3+ 03/23/22 05:30: Urine Opiates Screen Negative, Urine Methadone Screen Negative, Ur Barbituates Screen Negative, Ur Phencyclidine Scrn Negative, Ur Amphetamines Screen Negative, U Benzodiazepines Scrn Negative, Urine Cocaine Screen Negative, U Marijuana (THC) Screen Negative 03/23/22 05:30: Blood Type O Positive, Antibody Screen Negative I & O for Last 24 hours: Intake & Output 03/20/22 03/21/22 03/22/22 03/23/22 11:59 11:59 11:59 11:59 Weight 178 lb - Constitutional no acute distress - *Routine HEENT Exam Head: Present: normocephalic Eye: Absent: conjunctival icterus ENT: Present: mucous membranes moist - *Routine Neck Exam Present: supple. Absent: lymphadenopathy - *Routine Respiratory Exam Present: CTA bilaterally - *Routine Cardiovascular Exam Present: RRR - *Routine Abdominal Exam Present: soft, normoactive bowel sounds. Absent: tenderness - *Routine Rectal Exam Rectal:: deferred - *Routine Genitalia Exam Genitalia:: normal female Comment:: cervix /-1 - *R
[2022-03-23 11:56] VITALS: BP 117/75; PULSE 93; RESP 16; TEMP 36.6
--- NOTE | 2022-03-23 14:29 | HMH.LABNOT ---
Labor Note - Subjective: Date: 03/23/22 Time: 14:29 Comment:: regular contractions comfortable with epidural - Objective: NST:: Reactive Contractions:: every 2-3 minutes Cervical Dilation:: 4 Effacement:: 75% Station: -1 Membranes: artificially ruptured - Assessment: Labor progressing?: Yes Patient Problems: All Active Problems 38 weeks gestation of (Acute) Oligohydramnios in third trimester (Acute) Large for gestational age fetus (Acute) Anemia affecting (Acute) COVID-19 affecting , antepartum (Acute) Genetic carrier status (Acute) Scoliosis (Acute) (Acute) Anxiety (Chronic) - Plan: Comment:: Continue pitocin augmentation Continuous monitoring Anticipate
--- NOTE | 2022-03-23 17:20 | HMH.DN ---
- Delivery Note Delivery Date:: 03/23/22 Delivery Time:: 16:55 Anesthesia Type: Epidural Was labor medically induced?: Yes Gestational age (weeks): 38 delivered prior to 39 weeks?: Yes Justification for early elective delivery:: Oligohydraminos Gender: Female at 1 minute: 8 at 5 minutes: 9 Delivery Procedure:: Spontaneous vaginal delivery of liveborn female infant over intact perineum. Delivery uncomplicated No nuchal cord No shoulder dystocia with delivery placed in ANGELIQUE immediately after delivery, with standard nursing assessment performed Apgars: 8 & 9 Placenta spontaneously expressed and examined; noted to be complete/intact. Vulva, vagina, and cervix inspected; no lacerations present or repair necessary EBL: 300 cc All sponge/needle/instrument counts correct at conclusion of procedure Laceration:: vaginal Placental Delivery Description: Spontaneous
[2022-03-23 20:04] VITALS: BP 125/70; PULSE 79; RESP 18; TEMP 37.1; O2SAT 98
[2022-03-24 04:16] VITALS: BP 135/81; PULSE 67; RESP 16; TEMP 36.8; O2SAT 98
[2022-03-24 08:00] LABS: Hematocrit 31.8 % (37.0-47.0); Hemoglobin 10.6 g/dL (12.2-16.2)
[2022-03-24 08:10] VITALS: BP 125/78; PULSE 93; RESP 18; TEMP 36.6; O2SAT 98
[2022-03-24 13:02] VITALS: BP 119/65; PULSE 92; RESP 17; TEMP 36.8; O2SAT 100
--- NOTE | 2022-03-24 14:49 | HMH.DCSUM ---
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, but FOB negative Hospital Course Hospital Course: Uncomplicated vaginal delivery course uneventful Discharged home on PPD #1 in stable condition She is tolerating a regular diet, ambulating and voiding without difficulty Lochia is appropriate PPD #1 Hgb 10.6 Rhogam Administration: Not Indicated Objective Vital signs: Temp Pulse Resp BP Pulse Ox 98.3 F 92 H 17 119/65 100 03/24/22 13:02 03/24/22 13:02 03/24/22 13:02 03/24/22 13:02 03/24/22 13:02 Narrative: CONSTITUTIONAL: no acute distress HEENT: mucous membranes moist PULMONARY: breathing unlabored without audible wheezes CV: no tachycardia or visible JVD; normal LE peripheral pulses ABD: soft, NT/ND, no guarding : fundus firm at/below umbilicus SKIN: no visible rash or lesions EXT: 1+ edema LEs NEURO: alert/oriented, no altered mental status PSYCH: appropriate mood and demeanor without visible anxiety/depression Results Labs on day of discharge: Labs from last 24 hours 03/24/22 07:19 Hgb 10.6 L Hct 31.8 L Preliminary micro results at discharge 03/23/22 05:30 Urine Culture - Preliminary Urine,Clean Catch NO GROWTH AFTER 24 HOURS DS: Diagnosis - Discharge Diagnosis (1) 38 weeks gestation of Status: Acute (2) Oligohydramnios in third trimester Status: Acute (3) Large for gestational age fetus Status: Acute (4) Anemia affecting Status: Acute (5) Anxiety Status: Chronic (6) Genetic carrier status Status: Acute Problem details: SMA (heterozygous) FOB negative (7) Scoliosis Status: Acute (8) Vaginal delivery Status: Acute Discharge Plan - Patient Discharge Instructions ACTIVITY: Continue current activity DIET: regular diet Additional Instructions: NOTHING IN THE VAGINA FOR 6 WEEKS DRINK PLENTY OF FLUIDS Patient Instructions: Depression, Hemorrhage, DI for Labor and Delivery, Vaginal , DI for Pre-eclampsia, [facility] Post Discharge Instructions, Preventing the Spread of Coronavirus Discharge Instructions - Follow up Plan Follow up with: Alley Trotter MD [Staff Physician] - 05/05/22 10:45 am Disposition: Home, Self-Care Condition at discharge:: Stable Home Medications: Home Medications Medication Instructions Recorded Confirmed Type ferrous sulfate 325 mg (65 mg 325 mg PO BID 01/17/22 03/23/22 History iron) tablet,delayed release prenat.vits,hans,kyw-kdhh-xtpak 1 tab PO DAILY 01/17/22 03/23/22 History ondansetron HCl 4 mg tablet 4 mg PO Q4H PRN tab 02/01/22 03/23/22 History Buspirone HCl [Buspar 5mg tablet] 5 mg PO BID 03/23/22 03/23/22 History Prescriptions/Medication Reconciliation: New Buspirone HCl [Buspar 5mg tablet] 5 mg PO BID tab Ibuprofen [Motrin 400mg tablet] 800 mg PO Q6HP PRN tab PRN Reason: Mild To Moderate Pain Acetaminophen [Acetaminophen 325mg tab] 650 mg PO Q4HP PRN tab PRN Reason: Mild Pain Vits96/Iron Fum/Folic [ MVI w/Iron Tablet] 1 each PO 1700 tab Continued prenat.vits,hans,isl-mwns-wsupp 1 tab PO DAILY ferrous sulfate 325 mg (65 mg iron) tablet,delayed release 325 mg PO BID ondansetron HCl 4 mg tablet 4 mg PO Q4H PRN tab PRN Reason: Nausea Buspirone HCl [Buspar 5mg tablet] 5 mg PO BID - Problem Reconciliation Problems Reviewed?: Yes
[2022-03-24 16:53] VITALS: BP 124/58; PULSE 80; RESP 16; TEMP 36.4
== END 2022-03-24 18:05 | disposition home or self-care (01) | DRG 807 ==
PROVIDERS: Admitting Provider Obstetrics & Gynecology; PCP Nurse Practitioner Family; Visit Provider Obstetrics & Gynecology
DX: O41.03X0 Oligohydramnios, third trimester, not applicable or unspecified (principal); Z37.0 Single live birth; Z3A.38 38 weeks gestation of pregnancy; P08.1 Other heavy for gestational age newborn; O99.02 Anemia complicating childbirth; Z14.8 Genetic carrier of other disease
CPT/HCPCS: 59409; 36415; 59025; 80305; 81001; 85014; 85018; 85025; 86850; 87086; C1758; J2405

== ENCOUNTER → 2023-05-19 14:13 | Outpatient (CLI) | payer OTHER, SELFPAY ==
[2023-05-19 13:09] LABS: Alanine Aminotransferase 18 U/L (12-78); Albumin Level 4.5 g/dl (3.5-5.0); Albumin/Globulin Ratio 1.5 (1.1-1.8); Alkaline Phosphatase 58 U/L (38-126); Anion Gap 11.4 mEq/L (5-15); Aspartate Amino Transferase 26 U/L (14-36); Bilirubin,Total 0.3 mg/dl (0.2-1.3); Blood Urea Nitrogen 15 mg/dl (7-17); Carbon Dioxide 26 mmol/L (22.0-30.0); Chloride 105 mmol/L (98-107); Chol/HDL Ratio 4.7 (1-3.5); Cholesterol 214 mg/dl (140-200); Estimated Glomerular Filt Rate 119 ml/min (>60); GFR (African American) 144 ML/MIN (>60); Glucose 93 mg/dl (74-100); HDL Cholesterol 46 mg/dl (40-60); Potassium 4.4 mmoL/L (3.5-5.1); Sodium 138 mmol/L (136-145); Total Protein,Serum 7.5 g/dl (6.3-8.2); Triglycerides 204 mg/dl (30-150); VLDL Cholesterol 41 mg/dL (0-40)
[2023-05-19 13:21] LABS: Direct LDL Cholesterol 83.22 mg/dL (100-129)
[2023-05-19 13:43] LABS: Thyroid Stimulating Hormone 0.83 uIU/mL (0.465-4.68)
[2023-05-19 13:44] LABS: Basophils % 0.5 % (0.1-2.0); Eosinophils # 0.2 K/mm3 (0.0-0.4); Eosinophils % 3.2 % (0.1-12.0); Hematocrit 38.4 % (37.0-47.0); Hemoglobin 13.7 g/dL (12.2-16.2); Lymphocytes # 1.9 K/mm3 (0.7-4.5); Lymphocytes % 41.7 % (10-50); Mean Corpuscular HGB Conc 35.7 g/dL (31.8-35.4); Mean Corpuscular Hemoglobin 31.3 pg (27.0-31.2); Mean Corpuscular Volume 87.7 fl (81-99); Mean Platelet Volume 7.5 fl (7.4-10.4); Monocytes # 0.3 K/mm3 (0.1-1.0); Monocytes % 6.1 % (1.7-9.3); Neutrophils # 2.3 K/mm3 (1.8-7.8); Neutrophils % 48.6 % (37.0-80.0); Platelet Count 278 K/mm3 (142-424); Red Blood Count 4.38 M/mm3 (4.20-5.40); Red Cell Distribution Width 12.8 % (11.5-17.5); White Blood Count 4.6 K/mm3 (4.8-10.8)
== END ==
PROVIDERS: PCP Nurse Practitioner Family; Visit Provider Nurse Practitioner Family
DX: F41.9 Anxiety disorder, unspecified (principal); R53.83 Other fatigue
CPT/HCPCS: 80053; 80061; 82306; 84443; 85025

== ENCOUNTER → 2023-06-14 06:36 | Outpatient (CLI) | payer OTHER, SELFPAY ==
--- NOTE | 2023-06-14 06:50 | CT_ITS ---
FINAL REPORT TECHNIQUE: Thin section axial CT images of the facial bones and sinuses were obtained without contrast. Coronal reformatted images were also obtained.This study was performed with techniques to keep radiation doses as low as reasonably achievable, (ALARA). Individualized dose reduction techniques using automated exposure control or adjustment of mA and/or kV according to the patient''''s size were employed. CLINICAL HISTORY: left maxillary sinusitis FINDINGS: There is mild mucosal thickening of the right maxillary sinus. There is soft tissue in the right maxillary sinus ostium and infundibulum. There is an accessory ostium in the medial wall of the right maxillary sinus. There is mild mucosal thickening in the right frontal sinus. There is left nasal septal spur. Left irwin bullosa is identified. There are paradoxical middle turbinates. IMPRESSION: Mild sinusitis as above. Reviewed, Interpreted and Dictated by Gianfranco Armando III, MD Transcribed by Izabella Moss Authenticated and [facility]
== END ==
PROVIDERS: PCP Nurse Practitioner Family; Visit Provider Nurse Practitioner
DX: J32.0 Chronic maxillary sinusitis (principal)
CPT/HCPCS: 70486

== ENCOUNTER 2023-07-11 08:08 | Emergency (ER) | payer OTHER, SELFPAY ==
[2023-07-11 08:25] VITALS: BP 128/84; PULSE 91; RESP 18; TEMP 36.9; O2SAT 96; BMI 25.2
[2023-07-11 08:42] LABS: UTC Strep Screen (Rapid) Negative (Negative)
--- NOTE | 2023-07-11 08:44 | EXP.UTC ---
Discharge Plan Disposition Patient Disposition: Home, Self-Care Condition: Good Prescriptions Prescriptions: New methylprednisolone [Medrol (Reese)] 4 mg tablets,dose pack See Rx Instructions .Route .COMPLEX 6 Days Qty: 21 0RF Rx Instructions: taper pack; amoxicillin-pot clavulanate 875-125 mg Tablet 1 tab PO Q12H Qty: 14 0RF No Action buspirone 7.5 mg tablet 7.5 mg PO BID Referrals Follow up/Referrals: Omar Morley APRN [Primary Care Provider] - See instructions Activity Restrictions/Add. Instructions Additional Instructions/Restrictions: *Monitor Temp, Over the counter Motrin or Tylenol as directed/as needed Tylenol every 4 hours and Motrin every 6 hours (as long as your family doctor has told you that you can take it) for fever or pain. and straight to ER if unable to lower temp less than 101.0 after medication given *Warm salt water gargles may help to soothe the throat *Throat Lozenges? *Warm fluids like tea with honey may help to soothe the throat? *Sleep elevated *Humidifier/Vaporizer Your throat swab was sent for culture. Those results are typically sent to your primary care. Be sure to follow up in 2-3 days with your family doctor/primary care physician if no improvement so they can review those result and treat if necessary. If you don?t have a primary care doctor, I recommend you get one but in the mean time, you will have to return to a walk in clinic Follow up IMMEDIATELY for new or worsening symptoms or no Noticeable improvement over the next 48-72 hours. 911 for difficulty breathing or swallowing Clinical Impressions Clinical Impression: Sinusitis Qualifiers: Sinusitis location: unspecified location Chronicity: unspecified Qualified Code(s): J32.9 - Chronic sinusitis, unspecified Instructions Patient Instructions: DI for Sinusitis, Sinusitis Discharge ED Provider: Lilly Alvarez [facility] General Stated complaint: sore throat, possible sinus infection Mode of Arrival: Ambulatory Source of Information: Patient Limitations: No Limitations Time Seen by Provider: 07/11/23 08:44 Description of Symptoms (Recalled from Triage Doc. by RN): PATIENT C/O SORE THROAT AND SINUS PRESSURE SINCE [place]PE HEENT Symptoms (Recalled from RN notes): Yes Resp Symptoms (Recalled from RN notes): No Skin Symptoms (Recalled from RN notes): No MS Symptoms (Recalled from RN notes): No Functional Status (Recalled from RN notes): WNL History of Present Illness Provider Complaint: Patient states that she has been having sore throat and sinus pain and pressure since Monday with drainage in the back of her throat States that today she wasnt feeling any better so she came in to get checked Related Data Home Medications Medication Instructions Recorded Confirmed buspirone 7.5 mg tablet 7.5 mg PO BID Anxiety 07/11/23 07/11/23 Previous Rx's Medication Instructions Recorded amoxicillin 875 mg-potassium 1 tab PO Q12H #14 tabs 07/11/23 clavulanate 125 mg tablet methylprednisolone 4 mg tablets in See Rx Instructions .Route 07/11/23 a dose pack (Medrol (Reese)) .COMPLEX 6 days #21 tabs Allergies Allergy/AdvReac Type Severity Reaction Status Date / Time No Known Allergies Allergy Verified 06/29/23 09:14 Worker's Comp 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's Comp case?: No [facility] Disclaimer: The information contained in this section may have been updated after the patient was seen, as this information can be updated by other users. 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
[2023-07-11 08:51] VITALS: BP 128/84; PULSE 91; RESP 18; TEMP 36.9; O2SAT 96
== END 2023-07-11 08:54 | disposition home or self-care (01) ==
PROVIDERS: Emergency Provider Nurse Practitioner; PCP Nurse Practitioner Family
DX: J01.90 Acute sinusitis, unspecified (principal); F41.9 Anxiety disorder, unspecified
CPT/HCPCS: 87880; 99212; 99214; G0463

== ENCOUNTER 2023-10-21 11:10 | Emergency (ER) | payer OTHER, SELFPAY ==
[2023-10-21 13:45] VITALS: BP 133/90; PULSE 78; RESP 18; TEMP 36.6; O2SAT 99; BMI 27.2
[2023-10-21 14:06] LABS: UTC Strep Screen (Rapid) Negative (Negative)
[2023-10-21 14:12] LABS: UTC Influenza A Antigen Negative (Negative)
[2023-10-21 14:13] LABS: UTC Influenza B Antigen Negative (Negative)
[2023-10-21 14:24] VITALS: BP 133/90; PULSE 78; RESP 18; TEMP 36.6; O2SAT 99
--- NOTE | 2023-10-21 14:32 | EXP.UTC ---
Discharge Plan Disposition Patient Disposition: Home, Self-Care Condition: Good Prescriptions Prescriptions: New oyyhgobzfmgdste-ctcqiqxey-XS [Bromfed DM] 2-30-10 mg/5 mL syrup 10 ml PO Q4-6H PRN (Reason: cold symptoms) Qty: 200 0RF No Action buspirone 7.5 mg tablet 7.5 mg PO BID Referrals Follow up/Referrals: Delfino Tovar APRN [Primary Care Provider] - See instructions Clinical Impressions Clinical Impression: Acute upper respiratory infection Instructions Patient Instructions: DI for Viral Upper Respiratory Infection -- Adult Discharge ED Provider[place] Ramona [place] [facility] [place] General Stated complaint: fever, body aches Mode of Arrival: Ambulatory Source of Information: Patient Limitations: No Limitations Time Seen by Provider: 10/21/23 14:20 Description of Symptoms (Recalled from Triage Doc. 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 She states that yesterday she started having a runny nose, sore throat, fever, and cough. She reports that she has taken Mucinex and Tylenol for her symptoms. Related Data Home Medications Medication Instructions Recorded Confirmed buspirone 7.5 mg tablet 7.5 mg PO BID Anxiety 07/11/23 10/21/23 Previous Rx's Medication Instructions Recorded evekgdjsgejcuqf-zxncuffktrkofgp-NO 10 ml PO Q4-6H PRN cold symptoms 10/21/23 2 mg-30 mg-10 mg/5 mL oral syrup #200 mL (Bromfed DM) Allergies Allergy/AdvReac Type Severity Reaction Status Date / Time No Known Allergies Allergy Verified 06/29/23 09:14 Worker's Comp 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's Comp case?: No [facility] Disclaimer: The information contained in this section may have been updated after the patient was seen, as this information can be updated by other users. Medical History Anxiety Left maxillary sinusitis Social History Smoking Status: Never smoker second hand exposure: No alcohol intake: never substance use type: denies use current occupational status: employed Travel in the last 8 weeks: None household members: spouse housing: house current occupation: [employer] caffeine: Yes ROS Obtained: Yes All systems reviewed & no additional complaints except as documented Constitutional Constitutional: Reports system reviewed and no additional complaints, except as documented, Reports fever(s) and Reports malaise Eyes Eyes: Reports system reviewed and no additional complaints, except as documented ENT Ears, Nose, Mouth, and Throat: Reports system reviewed and no additional complaints, except as documented, Reports nasal congestion, Reports nasal discharge, Reports odynophagia, Reports sinus pressure and Reports sore throat Cardiovascular Cardiovascular: Reports system reviewed and no additional complaints, except as documented Respiratory Respiratory: Reports system reviewed and no additional complaints, except as documented and Reports non-productive cough Gastrointestinal Gastrointestingal: Reports system reviewed and no additional complaints, except as documented and odynophagia Genitourinary Female Genitourinary: Reports system reviewed and no additional complaints, except as documented Musculoskeletal Musculoskeletal: Reports system reviewed and no additional complaints, except as documented Integumentary/Breasts Skin/Breast: Reports system reviewed and no additional complaints, except as documented Neurologic Neurologic: Reports system reviewed and no additional complaints, except as documented Endocrine Endocrine: Reports system reviewed an
[2023-10-21 14:43] LABS: Adenovirus,PCR Not Detected (NotDetected); Coronavirus 19, PCR Not Detected (NotDetected); Coronavirus 229E Not Detected (NotDetected); Coronavirus NL63 Not Detected (NotDetected); Coronovirus HKU1,PCR Not Detected (NotDetected); Human Metapneumovirus Not Detected (NotDetected); Influenza A, PCR Not Detected (NotDetected); Influenza AH1, 2009 Not Detected (NotDetected); Influenza AH1, PCR Not Detected (NotDetected); Influenza AH3,PCR Not Detected (NotDetected); Influenza B, PCR Not Detected (NotDetected); Parainfluenza 1, PCR Not Detected (NotDetected); Parainfluenza 2, PCR Not Detected (NotDetected); Parainfluenza 3, PCR Not Detected (NotDetected); Parainfluenza 4, PCR Not Detected (NotDetected); Respiratory Syncytial Virus Not Detected (NotDetected); Rhinovirus/Enterovirus Not Detected (NotDetected)
[2023-10-21 19:29] LABS: Coronavirus OC43 Detected (NotDetected)
== END 2023-10-21 14:37 | disposition home or self-care (01) ==
PROVIDERS: Emergency Provider Nurse Practitioner Family; PCP Nurse Practitioner Family
DX: R05.9 Cough, unspecified (principal); B34.2 Coronavirus infection, unspecified; R50.9 Fever, unspecified; R09.81 Nasal congestion; R07.0 Pain in throat; M79.18 Myalgia, other site
CPT/HCPCS: 87632; 87635; 87804; 87880; 99212; 99214; G0463

== ENCOUNTER 2023-12-15 08:04 | Outpatient (CLI) | payer OTHER, SELFPAY ==
[2023-12-15 08:39] LABS: Basophils % 0.6 % (0.1-2.0); Eosinophils # 0.1 K/mm3 (0.0-0.4); Hematocrit 39.9 % (37.0-47.0); Hemoglobin 13.7 g/dL (12.2-16.2); Lymphocytes # 2.4 K/mm3 (0.7-4.5); Lymphocytes % 37.4 % (10-50); Mean Corpuscular HGB Conc 34.3 g/dL (31.8-35.4); Mean Corpuscular Hemoglobin 29.7 pg (27.0-31.2); Mean Corpuscular Volume 86.6 fl (81-99); Mean Platelet Volume 7.5 fl (7.4-10.4); Monocytes # 0.3 K/mm3 (0.1-1.0); Monocytes % 5.2 % (1.7-9.3); Neutrophils # 3.5 K/mm3 (1.8-7.8); Neutrophils % 54.9 % (37.0-80.0); Platelet Count 270 K/mm3 (142-424); Red Blood Count 4.61 M/mm3 (4.20-5.40); Red Cell Distribution Width 13.7 % (11.5-17.5); White Blood Count 6.3 K/mm3 (4.8-10.8)
[2023-12-15 09:35] LABS: Alanine Aminotransferase 19 U/L (12-78); Albumin Level 4.7 g/dl (3.5-5.0); Albumin/Globulin Ratio 1.7 (1.1-1.8); Alkaline Phosphatase 44 U/L (38-126); Anion Gap 10.5 mEq/L (5-15); Aspartate Amino Transferase 25 U/L (14-36); Bilirubin,Total 0.4 mg/dl (0.2-1.3); Blood Urea Nitrogen 12 mg/dl (7-17); Calcium 9.3 mg/dl (8.4-10.2); Carbon Dioxide 29 mmol/L (22.0-30.0); Chloride 103 mmol/L (98-107); Estimated Glomerular Filt Rate 100 ml/min (>60); GFR (African American) 121 ML/MIN (>60); Globulin 2.8 g/dL (1.3-3.2); Glucose 87 mg/dl (74-100); Potassium 4.5 mmoL/L (3.5-5.1); Sodium 138 mmol/L (136-145); Total Protein,Serum 7.5 g/dl (6.3-8.2)
[2023-12-15 09:41] LABS: Erythrocyte Sedimentation Rate 59 mm/hr (0-20)
== END 2023-12-15 23:59 ==
LOC: LAB 08:05
PROVIDERS: PCP Physician Assistant; Visit Provider Specialist
DX: G50.0 Trigeminal neuralgia (principal); R42 Dizziness and giddiness; R51.9 Headache, unspecified
CPT/HCPCS: 36415; 80053; 85025; 85651

== ENCOUNTER 2023-12-18 14:07 | Outpatient (CLI) | payer OTHER, SELFPAY ==
[2023-12-18 15:18] LABS: C-Reactive Protein 4.2 mg/L (0-4)
[2023-12-18 16:09] LABS: Erythrocyte Sedimentation Rate 26 mm/hr (0-20)
[2023-12-24 09:40] LABS: Antinuclear Antibodies (ANA) Negative
== END 2023-12-18 23:59 ==
LOC: LAB 14:07
PROVIDERS: PCP Physician Assistant; Visit Provider Specialist
DX: G50.0 Trigeminal neuralgia (principal); M26.622 Arthralgia of left temporomandibular joint; R51.9 Headache, unspecified
CPT/HCPCS: 36415; 85651; 86038; 86140

== ENCOUNTER 2023-12-24 12:14 | Emergency (ER) | payer OTHER, SELFPAY ==
[2023-12-24 12:40] VITALS: BP 132/91; PULSE 84; RESP 18; TEMP 36.9; O2SAT 97; BMI 27.2
--- NOTE | 2023-12-24 12:42 | EXP.UTC ---
Discharge Plan Disposition Patient Disposition: Home, Self-Care Condition: Good Prescriptions Prescriptions: New lpivbfxwkqvqnsd-rbdycyyvw-PQ [Bromfed DM] 2-30-10 mg/5 mL Syrup 5 ml PO Q6H PRN (Reason: Cough) Qty: 240 0RF No Action ergocalciferol (vitamin D2) 1,250 mcg (50,000 unit) capsule 1,250 mcg PO WEEKLY carbamazepine 100 mg tablet,chewable 100 mg PO BID MDD 200 mg Qty: 60 5RF Rx Instructions: 100 mg p.o. twice daily. tizanidine 2 mg capsule 2 mg PO HS PRN (Reason: TMJ) Qty: 30 5RF buspirone 7.5 mg tablet 7.5 mg PO BID Referrals Follow up/Referrals: Tyra Bernard PA [Primary Care Provider] - See instructions Activity Restrictions/Add. Instructions Additional Instructions/Restrictions: Drink plenty of fluids. Take tylenol or ibuprofen for pain or fever. Take the medications as directed. Follow up with your regular doctor. GO TO THE ER FOR ANY WORSENING SYMPTOMS Clinical Impressions Clinical Impression: COVID-19 Stand Alone Forms Stand Alone Forms: Work/School Release Instructions Patient Instructions: Coronavirus Disease 2019, Preventing the Spread of Coronavirus Discharge Instructions Discharge ED Provider: Isiah Peguero [facility] General Stated complaint: congestion, fever, bod aches Time Seen by Provider: 12/24/23 12:42 History of Present Illness Provider Complaint: She states that for the past 3 days she has had fever, chills, malaise, and a dry cough. Related Data Home Medications Medication Instructions Recorded Confirmed buspirone 7.5 mg tablet 7.5 mg PO BID Anxiety 07/11/23 12/12/23 ergocalciferol (vitamin D2) 1,250 1,250 mcg PO WEEKLY 12/12/23 12/12/23 mcg (50,000 unit) capsule Previous Rx's Medication Instructions Recorded carbamazepine 100 mg chewable 100 mg PO BID Trigeminal neuralgia 12/12/23 tablet #60 tabs tizanidine 2 mg capsule 2 mg PO HS PRN TMJ #30 caps 12/12/23 wssyfnfjaqehlwd-nqiqrneonpugkug-PX 5 ml PO Q6H PRN Cough #240 mL 12/24/23 2 mg-30 mg-10 mg/5 mL oral syrup (Bromfed DM) Allergies Allergy/AdvReac Type Severity Reaction Status Date / Time No Known Allergies Allergy Verified 12/24/23 12:53 [facility] Disclaimer: The information contained in this section may have been updated after the patient was seen, as this information can be updated by other users. Medical History (Updated 12/24/23 @ 13:42 by Isiah Peguero APRN) 38 weeks gestation of Anxiety COVID-19 affecting , antepartum Large for gestational age fetus Left maxillary sinusitis Oligohydramnios in third trimester Vaginal delivery Surgical History History of spinal fusion History of wisdom tooth extraction Family History Other Hypertension Neuropathy Social History Smoking Status: Never smoker second hand exposure: No alcohol intake: never substance use type: denies use current occupational status: employed Travel in the last 8 weeks: None household members: spouse housing: house current occupation: [employer] caffeine: Yes ROS Obtained: Yes All systems reviewed & no additional complaints except as documented Constitutional Constitutional: Reports chills and Reports fever(s) Eyes Eyes: Denies eye discharge ENT Ears, Nose, Mouth, and Throat: Reports as per HPI Cardiovascular Cardiovascular: Denies chest pain Respiratory Respiratory: Denies chest congestion and Reports cough Gastrointestinal Gastrointestingal: Reports nausea; Denies abdominal pain, constipation, cramping, diarrhea or vomiting Musculoskeletal Musculoskeletal: Denies arthralgias Integumentary/Breasts Skin/Breast: Denies rash Neurologic Neurologic: Denies paresthesias Physical Exam General General appearance: alert and in no apparent distress Head Head exam: atraumatic, normocephalic and normal inspection Eye Eye exam: Present normal appearance, PERRL and EOMI ENT ENT exam: Present mucous membranes moist and normal external ear exam Expanded ENT Exam TM/Canal exam: Bilateral TM: erythema and bulging Nose exam: Absent sinus tenderness Mouth exam: Present normal external inspection; Absent drooling Teeth exam: Present normal inspection Throat exam: Present tonsillar erythema, tonsillomegaly and tonsillar exudate Neck Neck exam: Present normal inspection, full ROM and trachea midline; Absent tenderness, meningismus or lymphadenopathy Chest Chest inspection: Present normal inspection and symmetric chest wall rise; Absent tenderness Respiratory Respiratory exam: Present normal lung sounds bilaterally; Absent respiratory distress, wheezes or stridor Cardiovascular Cardiovascular exam: Present regular rate and normal rhythm; Absent systolic murmur or diastolic murmur Abdominal Exam Abdominal exam: Present soft and normal bowel sounds; Absent distention, tenderness, guarding, rebound or rigidity Extremities Exam Extremities exam: Present normal inspection and normal capillary refill; Absent calf tenderness Back Exam Back exam: Present normal inspection and full ROM; Absent tenderness, CVA tenderness (R) or CVA tenderness (L) Neurological Exam Neurological exam: Present alert, oriented X3 and CN II-XII intact Psychiatric Psychiatric exam: Present normal affect and normal mood Skin Skin exam: Present warm, dry, intact and normal color Medical Decision Making Medical Records Medical records reviewed: No I reviewed the patient's medical records. Bobby Inquiry Pt receiving controlled substance: No Lab Data Lab results reviewed: Yes I reviewed the patient's lab results.
[2023-12-24 13:33] LABS: Coronavirus 19, PCR Detected (NotDetected); Influenza A, PCR Not Detected (NotDetected); Influenza B, PCR Not Detected (NotDetected)
[2023-12-24 13:45] VITALS: BP 132/91; PULSE 84; RESP 18; TEMP 36.9; O2SAT 97
== END 2023-12-24 13:45 | disposition home or self-care (01) ==
PROVIDERS: Emergency Provider Nurse Practitioner Family; PCP Physician Assistant
DX: U07.1 COVID-19 (principal); R50.9 Fever, unspecified; R05.9 Cough, unspecified; R09.81 Nasal congestion; R53.81 Other malaise
CPT/HCPCS: 87636; 99212; 99214; G0463

== ENCOUNTER 2024-01-05 07:28 | Outpatient (CLI) | payer OTHER, SELFPAY ==
--- NOTE | 2024-01-05 07:28 | MR_ITS ---
FINAL REPORT CLINICAL HISTORY: left side radiating facial pain 15ml prohance COMPARISON: None FINDINGS: Multiplanar MR imaging of the brain was performed without and with contrast. There is no evidence of intracranial hemorrhage or mass. No abnormal extra-axial fluid collection is seen. The ventricular size is within normal limits. There is no evidence of shift of the midline structures. The posterior fossa and brainstem have an unremarkable appearance. No area of abnormal restricted diffusion is identified. No abnormal contrast enhancement is seen. Normal major vessel vascular flow voids are noted. Mild mucosal thickening is noted in the paranasal sinuses. IMPRESSION: No acute intracranial abnormality identified. Reviewed, Interpreted and Dictated by Gianfranco Armando III, MD Transcribed by Brooklynn Domínguez Authenticated and . [facility]
--- NOTE | 2024-01-05 07:28 | MR_ITS ---
FINAL REPORT CLINICAL HISTORY: left side radiating facial pain COMPARISON: None FINDINGS: Multiple projection images of the brain arterial vasculature were obtained without contrast. The raw data images were also reviewed. The distal internal carotid, distal vertebral and basilar arteries have an unremarkable appearance without evidence of significant stenosis or occlusion. The proximal anterior, middle and posterior cerebral arteries have an unremarkable appearance. There is no evidence of significant stenosis or major branch occlusion. No aneurysm or vascular malformation is identified. IMPRESSION: Unremarkable MR angiogram of the head. Reviewed, Interpreted and Dictated by Gianfranco Armando III, MD Transcribed by Brooklynn Domínguez Authenticated and . [facility]
[2024-01-05] MEDS: SODIUM CHLORIDE 0.9% 10ML SYR (RAD ONLY) 10 ML IV (08:14)
[2024-01-05] MEDS: GADOTERIDOL INJ 17ML SYRINGE 15 ML IV (08:14)
== END 2024-01-05 23:59 ==
LOC: RAD 07:28
PROVIDERS: PCP Physician Assistant; Visit Provider Specialist
DX: G50.0 Trigeminal neuralgia (principal); R42 Dizziness and giddiness; R51.9 Headache, unspecified
CPT/HCPCS: 70544; 70553; A9576

== ENCOUNTER 2024-04-11 09:34 | Outpatient (CLI) | payer OTHER, SELFPAY ==
[2024-04-11 10:15] LABS: Chloride 104 mmol/L (98-107)
[2024-04-11 10:16] LABS: Potassium 4.1 mmoL/L (3.5-5.1); Sodium 140 mmol/L (136-145)
[2024-04-11 10:18] LABS: Alanine Aminotransferase 31 U/L (12-78); Alkaline Phosphatase 49 U/L (38-126); Anion Gap 15.1 mEq/L (5-15); Aspartate Amino Transferase 40 U/L (14-36); Bilirubin,Total 0.2 mg/dl (0.2-1.3); Blood Urea Nitrogen 11 mg/dl (7-17); Carbon Dioxide 25 mmol/L (22.0-30.0); Estimated Glomerular Filt Rate 100 ml/min (>60); GFR (African American) 121 ML/MIN (>60)
[2024-04-11 10:19] LABS: Albumin Level 4.8 g/dl (3.5-5.0); Albumin/Globulin Ratio 1.3 (1.1-1.8); Calcium 8.8 mg/dl (8.4-10.2); Chol/HDL Ratio 6.1 (1-3.5); Cholesterol 213 mg/dl (140-200); Globulin 3.7 g/dL (1.3-3.2); Glucose 89 mg/dl (74-100); HDL Cholesterol 35 mg/dl (40-60); Total Protein,Serum 8.5 g/dl (6.3-8.2); Triglycerides 175 mg/dl (30-150); VLDL Cholesterol 35 mg/dL (0-40)
== END 2024-04-11 23:59 | disposition home or self-care (01) ==
LOC: LAB 09:34
PROVIDERS: Specialist; PCP Family Medicine; Visit Provider Family Medicine
DX: S03.00XA Dislocation of jaw, unspecified side, initial encounter (principal); R51.9 Headache, unspecified; M26.622 Arthralgia of left temporomandibular joint
CPT/HCPCS: 80053; 80061

== ENCOUNTER 2024-04-14 20:26 | Emergency (ER) | payer OTHER, SELFPAY ==
[2024-04-14] VITALS (7 sets, daily range): BP systolic 132–155; BP diastolic 82–97; PULSE 82–116; RESP 16–18; TEMP 37.1; O2SAT 98–100; BMI 26.6
--- NOTE | 2024-04-14 21:05 | ED_ITS ---
Discharge Plan Disposition Patient Disposition: Home, Self-Care Prescriptions Prescriptions: New promethazine 25 mg tablet 25 mg PO Q6H PRN (Reason: nausea and vomiting) Qty: 20 0RF No Action ergocalciferol (vitamin D2) 1,250 mcg (50,000 unit) capsule 1,250 mcg PO WEEKLY tizanidine 2 mg capsule 2 mg PO HS PRN (Reason: TMJ) Qty: 30 5RF carbamazepine 100 mg tablet,chewable 200 mg PO BID MDD 400 mg Qty: 120 5RF Rx Instructions: 1 tab po q am and 2 tabs po qhs. Increase to 2 tabs po bid if persistent pain methylprednisolone [Medrol (Reese)] 4 mg tablets,dose pack See Rx Instructions PO PER PKG DIR Qty: 21 0RF Rx Instructions: PO PER PKG DIR buspirone 7.5 mg tablet 7.5 mg PO BID Referrals Follow up/Referrals: Radha Lowe APRN [Primary Care Provider] - See instructions Activity Restrictions/Add. Instructions Additional Instructions/Restrictions: Please follow-up with your primary care provider. Please return to the emergency department if you develop any new or worsening symptoms or become concerned for your health. Please take Phenergan as needed for nausea and vomiting. Please remain hydrated Clinical Impressions Clinical Impression: Nausea vomiting and diarrhea, Epigastric abdominal pain, Enteritis Instructions Patient Instructions: DI for Diarrhea and Traveler's Diarrhea -- Adult, DI for Diarrhea and Traveler's Diarrhea -- Child, DI for Nausea -- Adult, DI for Nausea -- Child Discharge ED Provider: Gautam Melgoza General Adult HPI <Shaq Trotter MD - Last Filed: 04/14/24 22:17> General Chief complaint: Nausea/Vomiting/Diarrhea Stated complaint: abdominal pain , vomiting Time Seen by Provider: 04/14/24 20:56 Mode of Arrival: Ambulatory Source of Information: Patient and Significant Other Limitations: No Limitations Description of Symptoms (Recalled from ER Triage Doc. by RN): Patient reports that her family had N/V/D Monday and Monday of this week that had resolved. Patient awoke at 6am this morning with burning epigastric pain that has been intermittent throughout the day. Nausea, vomiting, and diarrhea has resumed for her today as well. Patient denies fevers at home. Patient rates the pain as fluctuating between 4-8/10. History of Present Illness HPI narrative: Patient is a 28-year-old female presenting today with nausea vomiting diarrhea and epigastric abdominal pain. States that few days ago she had similar symptoms and felt as if she was getting better manage this at home but subsequently has significant worsening of her pain that was very severe and intermittent throughout the day. No hematemesis no melena or hematochezia. She denies any history of peptic ulcer disease no pain associated with eating today. No lateralizing pain right upper quadrant or left upper quadrant from historical standpoint. No urinary symptoms burning frequency urgency dysuria no vaginal complaints either. No chest pain shortness of breath etc. Related Data Home Medications Medication Instructions Recorded Confirmed buspirone 7.5 mg tablet 7.5 mg PO BID Anxiety 07/11/23 04/08/24 ergocalciferol (vitamin D2) 1,250 1,250 mcg PO WEEKLY 12/12/23 04/08/24 mcg (50,000 unit) capsule Previous Rx's Medication Instructions Recorded tizanidine 2 mg capsule 2 mg PO HS PRN TMJ #30 caps 12/12/23 carbamazepine 100 mg chewable 200 mg (2 x 100 mg) PO BID 01/29/24 tablet Trigeminal neuralgia #120 tabs methylprednisolone 4 mg tablets in See Rx Instructions PO PER PKG DIR 04/05/24 a dose pack (Medrol (Reese)) #21 tabs promethazine 25 mg tablet 25 mg PO Q6H PRN nausea and 04/15/24 vomiting #20 tabs Allergies Allergy/AdvReac Type Severity Reaction Status Date / Time No Known Allergies Allergy Verified 04/08/24 09:50 [facility] <J Omar Trotter MD - Last Filed: 04/14/24 22:17> [facility] Disclaimer: The information contained in this section may have been updated after the patient was seen, as this information can be updated by other users. Medical History Anemia affecting Left maxillary sinusitis Sinusitis Diarrhea Acute upper respiratory infection COVID-19 Trigeminal neuralgia of left side of face Vaginal delivery 38 weeks gestation of Oligohydramnios in third trimester Large for gestational age fetus COVID-19 affecting , antepartum Anxiety Surgical History History of wisdom tooth extraction History of spinal fusion Family History Other Hypertension Neuropathy Social History Smoking Status: Never smoker second hand exposure: No alcohol intake: never substance use type: denies use current occupational status: employed Travel in the last 8 weeks: None household members: spouse housing: house current occupation: [employer] caffeine: Yes <Shaq Trotter MD - Last Filed: 04/14/24 22:17> ROS Obtained: Yes All systems reviewed & no additional complaints except as documented Physical Exam <Shaq Trotter MD - Last Filed: 04/14/24 22:17> General General appearance: alert and in no apparent distress Respiratory Respiratory exam: Present normal lung sounds bilaterally Cardiovascular Cardiovascular exam: Present regular rate Abdominal Exam Abdominal exam: Present soft and tenderness (There is epigastric tenderness palpation no right upper quadrant tenderness negative Paulson's no left upper quadrant or rebound or guarding in the remainder of the abdomen no lower abdominal tenderness); Absent distention Neurological Exam Neurological exam: Present alert and oriented X3 Medical Decision Making <Shaq Trotter MD - Last Filed: 04/14/24 22:17> Bobby Inquiry Pt receiving controlled substance: No Vital Signs: 04/14/24 20:27 04/14/24 20:51 04/14/24 21:00 Temperature 98.7 F Temperature Source Oral Pulse Rate 116 H 107 H Pulse Rate [Left Radial] 109 H Respiratory Rate 18 18 16 Blood Pressure 144/95 H 139/82 Blood Pressure [Right Arm] 144/95 H Blood Pressure Mean [Right Arm] 111 Blood Pressure Source [Right Arm] Automatic Cuff Blood Pressure Position [Right Arm] Sitting 02 Sat by Pulse Oximetry 99 98 100 Oxygen Delivery Method Room Air Room Air Room Air 04/14/24 21:30 04/14/24 22:00 04/14/24 23:00 Temperature Temperature Source Pulse Rate 98 H 90 94 H Pulse Rate [Left Radial] Respiratory Rate 18 18 18 Blood Pressure 132/96 H 133/97 H 152/97 H Blood Pressure [Right Arm] Blood Pressure Mean [Right Arm] Blood Pressure Source [Right Arm] Blood Pressure Position [Right Arm] 02 Sat by Pulse Oximetry 100 100 99 Oxygen Delivery Method Room Air Room Air Room Air 04/14/24 23:30 Temperature Temperature Source Pulse Rate 82 Pulse Rate [Left Radial] Respiratory Rate 16 Blood Pressure 155/97 H Blood Pressure [Right Arm] Blood Pressure Mean [Right Arm] Blood Pressure Source [Right Arm] Blood Pressure Position [Right Arm] 02 Sat by Pulse Oximetry 100 Oxygen Delivery Method Room Air Lab Data Lab results reviewed: Yes I reviewed the patient's lab results. Lab Results 04/14/24 21:05: WBC 7.5, RBC 4.39, Hgb 13.2, Hct 38.9, MCV 88.7, MCH 30.0, MCHC 33.8, RDW 13.9, Plt Count 283, MPV 7.4, Neut % (Auto) 72.8, Lymph % (Auto) 20.8, Lincoln % (Auto) 4.2, Eos % (Auto) 1.5, Baso % (Auto) 0.8, Neut # (Auto) 5.5, Lymph # (Auto) 1.6, Lincoln # (Auto) 0.3, Eos # (Auto) 0.1, Baso # (Auto) 0.1, Sodium 140, Potassium 4.1, Chloride 106, Carbon Dioxide 26, Anion Gap 12.1, BUN 13, Creatinine 0.60, Estimated Creat Clear 165, Estimated GFR 119, Est GFR ( Amer) 144, Glucose 115 H, Calcium 9.4, Total Bilirubin 0.2, AST 51 H, ALT 62, Alkaline Phosphatase 44, Troponin I < 0.01, Total Protein 8.3 H, Albumin 4.7, G lobulin 3.6 H, Albumin/Globulin Ratio 1.3, Lipase 89, Serum HCG, Qual Negative 04/14/24 21:05 04/14/24 21:05 Orders (Tests/Meds): ED MEDICATIONS Generic Name Dose Route Start Last Admin Trade Name Freq PRN Reason Stop Dose Admin Sodium Chloride 8 ml 04/14/24 21:02 Sodium Chloride 0.9% 10ml Vial IV 05/14/24 21:01 NEEDED PRN dilute pepcid Sodium Chloride 10 ml 04/14/24 22:40 04/14/24 22:45 Sodium Chloride 0.9% 10ml Syr (Rad Only) IV 05/14/24 22:39 10 ml NEEDED PRN Administration Maintain IV Site Discontinued Medications Generic Name Dose Route Start Last Admin Trade Name Freq PRN Reason Stop Dose Admin Belladonna Alkaloids 60 ml 04/14/24 21:02 04/14/24 21:22 Belladonna Alkaloids 60 Ml Ml PO 04/14/24 21:03 60 ml ONCE ONE Administration Famotidine 20 mg 04/14/24 21:02 04/14/24 21:23 Famotidine 20mg/2ml Vial IV 04/14/24 21:03 20 mg ONCE ONE Administration Lactated Ringer's 1,000 mls @ 999 mls/hr 04/14/24 21:15 04/14/24 21:23 Lactated Ringer's 1000 Ml Bag IV 04/14/24 22:15 999 mls/hr .Q1H1M JONO Administration Iopamidol 75 ml 04/14/24 22:40 04/14/24 22:45 Iopamidol-370 (76%);100ml Bottle IV 04/14/24 22:41 75 ml ONCE ONE Administration Morphine Sulfate 4 mg 04/14/24 22:15 04/14/24 22:18 Morphine 4mg/Ml Syringe IV 04/14/24 22:16 4 mg ONCE ONE Administration Ondansetron HCl 4 mg 04/14/24 21:02 04/14/24 21:23 Ondansetron 4mg/2ml Vial IV 04/14/24 21:03 4 mg ONCE ONE Administration ORDERS Category Date Time Status CT abdomen pelvis w con Stat Cat Scan 04/14/24 22:15 Completed CBC w/Auto Diff [Complete Blood Count Auto Diff] Stat Lab 04/14/24 21:05 Completed CMP [Comprehensive Metabolic Panel] Stat Lab 04/14/24 21:05 Completed HCG Qualitative, Serum Stat Lab 04/14/24 21:05 Completed Lipase Stat Lab 04/14/24 21:05 Completed Trop I [Troponin I] Stat Lab 04/14/24 21:05 Completed Troponin I Q3H Lab 04/15/24 00:15 Ordered Troponin I Q3H Lab 04/15/24 03:15 Ordered Medical Decision Narrative: 28-year-old female present today with a benign abdominal exam other than some mild epigastric tenderness with deep palpation with nausea vomiting diarrhea. It is possible this is viral but this would be outside of the normal duration of symptoms but still possible. She has no blood in her stool she has a benign abdominal exam most likely not surgical in the nature no right upper quadrant pain I do not suspect biliary disease at the moment. Pancreatitis are on the differential. Will give IV fluids as well as GI cocktail Pepcid and Zofran. GERD/PUD are on the differential and will reassess after this initial workup is complete. Reassessment 10:16 PM patient still having significant abdominal pain labs returned which are unremarkable. She is still having a 5 out of 10 discomfort at this point we will escalate with a CT scan and add morphine onto her symptoms. She did not have any improvement with GI cocktail or Pepcid. Care will be transitioned to Dr. Gautam Melgoza to follow-up on CT scan. <Gautam Melgoza MD - Last Filed: 04/15/24 00:13> Vital Signs: 04/14/24 20:27 04/14/24 20:51 04/14/24 21:00 Temperature 98.7 F Temperature Source Oral Pulse Rate 116 H 107 H Pulse Rate [Left Radial] 109 H Respiratory Rate 18 18 16 Blood Pressure 144/95 H 139/82 Blood Pressure [Right Arm] 144/95 H Blood Pressure Mean [Right Arm] 111 Blood Pressure Source [Right Arm] Automatic Cuff Blood Pressure Position [Right Arm] Sitting 02 Sat by Pulse Oximetry 99 98 100 Oxygen Delivery Method Room Air Room Air Room Air 04/14/24 21:30 04/14/24 22:00 04/14/24 23:00 Temperature Temperature Source Pulse Rate 98 H 90 94 H Pulse Rate [Left Radial] Respiratory Rate 18 18 18 Blood Pressure 132/96 H 133/97 H 152/97 H Blood Pressure [Right Arm] Blood Pressure Mean [Right Arm] Blood Pressure Source [Right Arm] Blood Pressure Position [Right Arm] 02 Sat by Pulse Oximetry 100 100 99 Oxygen Delivery Method Room Air Room Air Room Air 04/14/24 23:30 Temperature Temperature Source Pulse Rate 82 Pulse Rate [Left Radial] Respiratory Rate 16 Blood Pressure 155/97 H Blood Pressure [Right Arm] Blood Pressure Mean [Right Arm] Blood Pressure Source [Right Arm] Blood Pressure Position [Right Arm] 02 Sat by Pulse Oximetry 100 Oxygen Delivery Method Room Air Lab Data Lab Results 04/14/24 21:05: WBC 7.5, RBC 4.39, Hgb 13.2, Hct 38.9, MCV 88.7, MCH 30.0, MCHC 33.8, RDW 13.9, Plt Count 283, MPV 7.4, Neut % (Auto) 72.8, Lymph % (Auto) 20.8, Lincoln % (Auto) 4.2, Eos % (Auto) 1.5, Baso % (Auto) 0.8, Neut # (Auto) 5.5, Lymph # (Auto) 1.6, Lincoln # (Auto) 0.3, Eos # (Auto) 0.1, Baso # (Auto) 0.1, Sodium 140, Potassium 4.1, Chloride 106, Carbon Dioxide 26, Anion Gap 12.1, BUN 13, Creatinine 0.60, Estimated Creat Clear 165, Estimated GFR 119, Est GFR ( Amer) 144, Glucose 115 H, Calcium 9.4, Total Bilirubin 0.2, AST 51 H, ALT 62, Alkaline Phosphatase 44, Troponin I < 0.01, Total Protein 8.3 H, Albumin 4.7, G lobulin 3.6 H, Albumin/Globulin Ratio 1.3, Lipase 89, Serum HCG, Qual Negative Orders (Tests/Meds): ED MEDICATIONS Generic Name Dose Route Start Last Admin Trade Name Freq PRN Reason Stop Dose Admin Sodium Chloride 8 ml 04/14/24 21:02 Sodium Chloride 0.9% 10ml Vial IV 05/14/24 21:01 NEEDED PRN dilute pepcid Sodium Chloride 10 ml 04/14/24 22:40 04/14/24 22:45 Sodium Chloride 0.9% 10ml Syr (Rad Only) IV 05/14/24 22:39 10 ml NEEDED PRN Administration Maintain IV Site Discontinued Medications Generic Name Dose Route Start Last Admin Trade Name Freq PRN Reason Stop Dose Admin Belladonna Alkaloids 60 ml 04/14/24 21:02 04/14/24 21:22 Belladonna Alkaloids 60 Ml Ml PO 04/14/24 21:03 60 ml ONCE ONE Administration Famotidine 20 mg 04/14/24 21:02 04/14/24 21:23 Famotidine 20mg/2ml Vial IV 04/14/24 21:03 20 mg ONCE ONE Administration Lactated Ringer's 1,000 mls @ 999 mls/hr 04/14/24 21:15 04/14/24 21:23 Lactated Ringer's 1000 Ml Bag IV 04/14/24 22:15 999 mls/hr .Q1H1M JONO Administration Iopamidol 75 ml 04/14/24 22:40 04/14/24 22:45 Iopamidol-370 (76%);100ml Bottle IV 04/14/24 22:41 75 ml ONCE ONE Administration Morphine Sulfate 4 mg 04/14/24 22:15 04/14/24 22:18 Morphine 4mg/Ml Syringe IV 04/14/24 22:16 4 mg ONCE ONE Administration Ondansetron HCl 4 mg 04/14/24 21:02 04/14/24 21:23 Ondansetron 4mg/2ml Vial IV 04/14/24 21:03 4 mg ONCE ONE Administration ORDERS Category Date Time Status CT abdomen pelvis w con Stat Cat Scan 04/14/24 22:15 Completed CBC w/Auto Diff [Complete Blood Count Auto Diff] Stat Lab 04/14/24 21:05 Completed CMP [Comprehensive Metabolic Panel] Stat Lab 04/14/24 21:05 Completed HCG Qualitative, Serum Stat Lab 04/14/24 21:05 Completed Lipase Stat Lab 04/14/24 21:05 Completed Trop I [Troponin I] Stat Lab 04/14/24 21:05 Completed Troponin I Q3H Lab 04/15/24 00:15 Ordered Troponin I Q3H Lab 04/15/24 03:15 Ordered Medical Decision Narrative: 28-year-old female present today with a benign abdominal exam other than some mild epigastric tenderness with deep palpation with nausea vomiting diarrhea. It is possible this is viral but this would be outside of the normal duration of symptoms but still possible. She has no blood in her stool she has a benign abdominal exam most likely not surgical in the nature no right upper quadrant pain I do not suspect biliary disease at the moment. Pancreatitis are on the differential. Will give IV fluids as well as GI cocktail Pepcid and Zofran. GERD/PUD are on the differential and will reassess after this initial workup is complete. Reassessment 10:16 PM patient still having significant abdominal pain labs returned which are unremarkable. She is still having a 5 out of 10 discomfort at this point we will escalate with a CT scan and add morphine onto her symptoms. She did not have any improvement with GI cocktail or Pepcid. Care will be transitioned to Dr. Gautam Melgoza to follow-up on CT scan. Abad THAO: I assumed care of the patient at the time of handoff from the prior provider. On reassessment patient reports some symptomatic improvement. Not significantly tender on my abdominal exam. CT imaging independently interpreted by me and shows no evidence of acute biliary pathology, bowel obstruction etc. Does show fluid-filled small bowel without obstruction, most consistent with enteritis especially given patient's symptoms. These findings were communicated to patient. She was discharged in stable condition with prescription for Phenergan and instructions regarding symptomatic care and return precautions. Critical Care <Shaq Trotter MD - Last Filed: 04/14/24 22:17> Critical Care Time Critical Care Time: No
[2024-04-14 21:17] LABS: Basophils # 0.1 K/mm3 (0-0.2); Basophils % 0.8 % (0.1-2.0); Eosinophils # 0.1 K/mm3 (0.0-0.4); Eosinophils % 1.5 % (0.1-12.0); Hematocrit 38.9 % (37.0-47.0); Hemoglobin 13.2 g/dL (12.2-16.2); Lymphocytes # 1.6 K/mm3 (0.7-4.5); Lymphocytes % 20.8 % (10-50); Mean Corpuscular HGB Conc 33.8 g/dL (31.8-35.4); Mean Corpuscular Volume 88.7 fl (81-99); Mean Platelet Volume 7.4 fl (7.4-10.4); Monocytes # 0.3 K/mm3 (0.1-1.0); Monocytes % 4.2 % (1.7-9.3); Neutrophils # 5.5 K/mm3 (1.8-7.8); Neutrophils % 72.8 % (37.0-80.0); Platelet Count 283 K/mm3 (142-424); Red Blood Count 4.39 M/mm3 (4.20-5.40); Red Cell Distribution Width 13.9 % (11.5-17.5); White Blood Count 7.5 K/mm3 (4.8-10.8)
[2024-04-14] MEDS: BELLADONNA ALKALOIDS 60 ML ML PO (21:22)
[2024-04-14] MEDS: ONDANSETRON 4MG/2ML VIAL 4 MG IV (21:23)
[2024-04-14] MEDS: LACTATED RINGERS 1000ML 1,000 ML 999 ML IV (21:23)
[2024-04-14] MEDS: FAMOTIDINE 20MG/2ML VIAL 20 MG IV (21:23)
[2024-04-14 21:26] LABS: Chloride 106 mmol/L (98-107)
[2024-04-14 21:27] LABS: Potassium 4.1 mmoL/L (3.5-5.1); Sodium 140 mmol/L (136-145)
[2024-04-14 21:29] LABS: Alanine Aminotransferase 62 U/L (12-78); Alkaline Phosphatase 44 U/L (38-126); Aspartate Amino Transferase 51 U/L (14-36); Bilirubin,Total 0.2 mg/dl (0.2-1.3); Blood Urea Nitrogen 13 mg/dl (7-17); Creatinine Clearance Estimated 165 mL/min (50-200); Estimated Glomerular Filt Rate 119 ml/min (>60); GFR (African American) 144 ML/MIN (>60); HCG Qualitative, Serum Negative (Negative)
[2024-04-14 21:30] LABS: Albumin Level 4.7 g/dl (3.5-5.0); Albumin/Globulin Ratio 1.3 (1.1-1.8); Anion Gap 12.1 mEq/L (5-15); Calcium 9.4 mg/dl (8.4-10.2); Carbon Dioxide 26 mmol/L (22.0-30.0); Globulin 3.6 g/dL (1.3-3.2); Glucose 115 mg/dl (74-100); Lipase 89 U/L (23-300); Total Protein,Serum 8.3 g/dl (6.3-8.2)
[2024-04-14 21:42] LABS: Troponin I < 0.01 ng/ml (0.00-0.034)
--- NOTE | 2024-04-14 22:15 | CT_ITS ---
PROCEDURE INFORMATION: Exam: CT Abdomen And Pelvis With Contrast Exam date and time: 04/14/2024 10:26 PM Age: 28 years old Clinical indication: Abdominal pain; Additional info: Epigastric abd pain TECHNIQUE: Imaging protocol: Computed tomography of the abdomen and pelvis with contrast. Radiation optimization: All CT scans at this facility use at least one of these dose optimization techniques: automated exposure control; mA and/or kV adjustment per patient size (includes targeted exams where dose is matched to clinical indication); or iterative reconstruction. Contrast material: ISOVUE; Contrast volume: 75 ml; Contrast route: IV; COMPARISON: US OB FOLLOW UP 02/15/2022 2:13 PM FINDINGS: Lungs: Clear basilar lung parenchyma. Pleural spaces: No pleural fluid. Heart: Normal heart size. Liver: Normal configuration. Homogeneous parenchyma. Gallbladder and bile ducts: Postprandial gallbladder is contracted. Pancreas: Normal. No ductal dilation. Spleen: Normal. No splenomegaly. Adrenal glands: Normal configuration. Kidneys and ureters: Kidneys enhance symmetrically and demonstrate no evidence of mass, calculus, obstruction, or inflammation. Stomach and bowel: Postprandial stomach. Air-fluid levels are noted in nondilated small bowel. There is fluid throughout the lumen of the colon. Appendix: Normal appendix is confirmed. Intraperitoneal space: No free air. No significant fluid collection. Vasculature: Normal caliber arterial structures. Lymph nodes: No enlarged lymph nodes. Urinary bladder: Unremarkable as visualized. Reproductive: Physiologic appearance for age. Bones/joints: Fixation hardware noted in the thoracolumbar spine. Soft tissues: Unremarkable. IMPRESSION: Air-fluid levels are noted throughout nondilated small bowel and colon suggesting enterocolitis. Postprandial stomach appears normal.
[2024-04-14] MEDS: MORPHINE 4MG/ML SYRINGE 4 MG IV (22:18)
[2024-04-14] MEDS: SODIUM CHLORIDE 0.9% 10ML SYR (RAD ONLY) 10 ML IV (22:45)
[2024-04-14] MEDS: IOPAMIDOL-370 (76%);100ML BOTTLE 75 ML IV (22:45)
[2024-04-15 00:25] VITALS: BP 130/84; PULSE 98; RESP 18; TEMP 36.6; O2SAT 98
== END 2024-04-15 00:26 | disposition home or self-care (01) ==
PROVIDERS: Student in an Organized Health Care Education/Training Program; Emergency Provider Emergency Medicine; PCP Family Medicine
DX: R10.13 Epigastric pain (principal); K52.9 Noninfective gastroenteritis and colitis, unspecified; R11.2 Nausea with vomiting, unspecified
CPT/HCPCS: 74177; 80053; 83690; 84484; 84703; 85025; 96361; 96374; 96375; 99285; J2270; J2405; J7120; Q9967

== ENCOUNTER 2024-08-21 15:30 | Outpatient (CLI) | payer OTHER, SELFPAY ==
[2024-08-21 15:38] LABS: Microscopic, Urine URINE MICROSCOPIC (MICROSCOPIC)
[2024-08-21 16:18] LABS: Appearance,Urine CLEAR (Clear); Bilirubin,Urine Negative (Negative); Blood, Urine 1+ (Negative); Color,Urine YELLOW (Yellow); Glucose,Urine (UA) Negative (Negative); Ketones,Urine Negative (Negative); Leukocyte Esterase,Urine Negative (Negative); Nitrate,Urine Negative (Negative); Protein,Urine Negative (Negative); Specific Gravity, Urine 1.025 (1.005-1.030); Urobilinogen,Urine 0.2 EU/dl (0.2)
[2024-08-21 17:48] LABS: Bacteria,Urine 1+ /lpf; Mucus,Urine 1+ /lpf; WBC,Urine 20-50 #/hpf (0-3)
== END 2024-08-21 23:59 | disposition home or self-care (01) ==
PROVIDERS: PCP Family Medicine; Visit Provider Family Medicine
DX: N39.0 Urinary tract infection, site not specified (principal)
CPT/HCPCS: 81001; 87086

== ENCOUNTER 2024-10-29 19:03 | Emergency (ER) | payer OTHER, SELFPAY ==
[2024-10-29 19:10] VITALS: BP 130/84; PULSE 87; RESP 18; TEMP 36.7; O2SAT 97; BMI 28.4
--- NOTE | 2024-10-29 19:16 | ED_ITS ---
Discharge Plan Disposition Patient Disposition: Home, Self-Care Condition: Good Prescriptions Prescriptions: No Action carbamazepine 100 mg tablet,chewable 200 mg PO BID MDD 400 mg Qty: 120 5RF Rx Instructions: 1 tab po q am and 2 tabs po qhs. Increase to 2 tabs po bid if persistent pain methylprednisolone [Medrol (Reese)] 4 mg tablets,dose pack See Rx Instructions PO PER PKG DIR Qty: 21 0RF Rx Instructions: PO PER PKG DIR ciprofloxacin HCl [Cipro] 500 mg tablet 500 mg PO BID 5 Days Qty: 10 0RF buspirone 7.5 mg tablet 7.5 mg PO BID Qty: 180 1RF ergocalciferol (vitamin D2) 1,250 mcg (50,000 unit) capsule 1,250 mcg PO WEEKLY Qty: 14 0RF promethazine 25 mg tablet 25 mg PO Q6H PRN (Reason: nausea and vomiting) Qty: 20 0RF Referrals Follow up/Referrals: Radha Lowe APRN [Primary Care Provider] - See instructions Activity Restrictions/Add. Instructions Additional Instructions/Restrictions: * Lots of rest * Increase Fluids water, Gatorade, powerade, pedialyte,if infant/toddler/child * Alternate Tylenol and / or ibuprofen as discussed for fever, aches, chills Follow up IMMEDIATELY with your family doctor for new or worsening Symptoms OR no noticeable improvement over the next 48-72 hours, 911 for difficulty or breathing * You or your child area contagious until no fever, aches, chills for 24 hours with medication for symptoms * Help Prevent the spread of influenza: * ?Wash your hands often. Use soap and water. Wash your hands after you use the bathroom, change a child's diapers, or sneeze. Wash your hands before you prepare or eat food. Use gel hand cleanser that has 60% alcohol, when soap and water are not available. Do not touch your eyes, nose, or mouth unless you have washed your hands first. * Cover your mouth when you sneeze or cough. Cough into a tissue or the bend of your arm. If you use a tissue, throw it away immediately and wash your hands. * Clean shared items with a germ-killing booth cleaner. Clean table surfaces, doorknobs, and light switches. Do not share towels, silverware, and dishes with people who are sick. Wash bed sheets, towels, silverware, and dishes with soap and water. * Wear a mask over your mouth and nose if you are sick. The face mask may help protect others from becoming infected with the flu. Wear the mask when in common areas of your home or if you seek care with a healthcare provider. * Stay away from others if you are sick. Stay at home until 24 hours after your fever and symptoms are gone. Clinical Impressions Clinical Impression: Influenza Stand Alone Forms Stand Alone Forms: Work/School Release Instructions Patient Instructions: DI for Influenza -- Adult, Influenza Print Language Print Language: Japanese Discharge ED Provider: Lilly Alvarez [facility] [place] General Stated complaint: trejo congestion ba Mode of Arrival: Ambulatory Source of Information: Patient Limitations: No Limitations Time Seen by Provider: 10/29/24 19:16 Description of Symptoms (Recalled from Triage Doc. by RN): PATIENT C/O BODY ACHES, HEADACHE, AND SINUS CONGESTION AND DRAINAGE THAT STARTED THIS MORNING HEENT Symptoms (Recalled from RN notes): Yes Resp Symptoms (Recalled from RN notes): No Skin Symptoms (Recalled from RN notes): No MS Symptoms (Recalled from RN notes): No Functional Status (Recalled from RN notes): WNL History of Present Illness Provider Complaint: Patient states that she started feeling bad this morning and it hit her suddenly with nasal congestion, headache, body aches, chills but no fever yet States that as the day went on symptoms continued States that she has had chills but no fever that she is aware of so this evening she came in Related Data Previous Rx's ?Medication ?Instructions ?Recorded carbamazepine 100 mg chewable 200 mg (2 x 100 mg) PO BID 01/29/24 tablet Trigeminal neuralgia #120 tabs methylprednisolone 4 mg tablets in See Rx Instructions PO PER PKG DIR 04/05/24 a dose pack (Medrol (Reese)) #21 tabs promethazine 25 mg tablet 25 mg PO Q6H PRN nausea and 04/15/24 vomiting #20 tabs ciprofloxacin HCl 500 mg tablet 500 mg PO BID 5 days #10 tabs 08/22/24 (Cipro) buspirone 7.5 mg tablet 7.5 mg PO BID Anxiety #180 tabs 10/28/24 ergocalciferol (vitamin D2) 1,250 1,250 mcg PO WEEKLY #14 caps 10/28/24 mcg (50,000 unit) capsule Allergies Allergy/AdvReac Type Severity Reaction Status Date / Time No Known Allergies Allergy Verified 04/08/24 09:50 Worker's Comp 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's Comp case?: [facility] Dis[facility]: The information contained in this section may have been updated after the patient was seen, as this information can be updated by other users. Medical History Anemia affecting Left maxillary sinusitis Sinusitis Diarrhea Acute upper respiratory infection COVID-19 Trigeminal neuralgia of left side of face Vaginal delivery 38 weeks gestation of Oligohydramnios in third trimester Large for gestational age fetus COVID-19 affecting , antepartum Anxiety Surgical History History of wisdom tooth extraction History of spinal fusion Family History Other Hypertension Neuropathy Social History Smoking Status: Never smoker second hand exposure: No alcohol intake: never substance use type: denies use current occupational status: employed Travel in the last 8 weeks: None household members: spouse housing: house current occupation: [employer] caffeine: Yes Have you lived/traveled outside US in past 30 days?: No Contact w/someone who lives/traveled outside US past 30 days?: No Exposure to someone with infectious disease in past 14 days?: No Do you have a fever (greater than 100.4 F or 38 C)?: No Have you tested positive for COVID-19: No Exposed to someone with COVID-19 in past 14 days?: No Do you have a sore throat?: Yes Do you have a cough?: Yes Do you have any weakness?: No Do you have any diarrhea?: No Are you experiencing any unusual bleeding?: No Do you have any muscle aches/pain?: No Do you have any abdominal pain?: No Are you experiencing loss of taste or smell?: No ROS Obtained: Yes All systems reviewed & no additional complaints except as documented and Yes Systems reviewed as appropriate & no additional complaints except as documented Constitutional Constitutional: Reports system reviewed and no additional complaints, except as documented, Reports as per HPI, Reports body ache, Reports chills and Reports headache(s) ENT Ears, Nose, Mouth, and Throat: Reports system reviewed and no additional complaints, except as documented, Reports as per HPI, Reports headache(s), Reports nasal congestion and Reports nasal discharge Cardiovascular Cardiovascular: Reports system reviewed and no additional complaints, except as documented and Reports as per HPI Respiratory Respiratory: Reports system reviewed and no additional complaints, except as documented and Reports as per HPI Gastrointestinal Gastrointestingal: Reports system reviewed and no additional complaints, except as documented and as per HPI Neurologic Neurologic: Reports headache(s) Physical Exam General General appearance: alert and in no apparent distress ENT ENT exam: Present mucous membranes moist Expanded ENT Exam Nose exam: Absent sinus tenderness Throat exam: Present normal inspection Respiratory Respiratory exam: Present normal lung sounds bilaterally; Absent respiratory distress or wheezes Cardiovascular Cardiovascular exam: Present regular rate, normal rhythm and normal heart sounds Abdominal Exam Abdominal exam: Present soft and normal bowel sounds; Absent distention or tenderness Neurological Exam Neurological exam: Present alert, oriented X3 and normal gait Medical Decision Making Medical Records Screening: Per USPSTF and CDC recommendations, given the prevalence of disease in our region, it is our hospital?s policy to screen for HIV and viral Hepatitis for all patients aged 18 and over and those with ongoing risk factors. Bobby Inquiry Pt receiving controlled substance: No Bobby was queried for this patient: No Vital Signs: 10/29/24 19:10 Temperature 98.1 F Temperature Source Oral Pulse Rate [Left Brachial] 87 Respiratory Rate 18 Blood Pressure [Left Arm] 130/84 Blood Pressure Mean [Left Arm] 99 Blood Pressure Source [Left Arm] Automatic Cuff Blood Pressure Position [Left Arm] Sitting 02 Sat by Pulse Oximetry 97 Oxygen Delivery Method Room Air Lab Data Lab results reviewed: Yes I reviewed the patient's lab results.
[2024-10-29 19:19] LABS: UTC Influenza A Antigen Positive (Negative); UTC Influenza B Antigen Negative (Negative)
[2024-10-29 19:25] VITALS: BP 130/84; PULSE 87; RESP 18; TEMP 36.7; O2SAT 97
== END 2024-10-29 19:28 | disposition home or self-care (01) ==
PROVIDERS: Emergency Provider Nurse Practitioner; PCP Family Medicine
DX: J11.1 Influenza due to unidentified influenza virus with other respiratory manifestations (principal); R51.9 Headache, unspecified; R09.81 Nasal congestion; R68.83 Chills (without fever)
CPT/HCPCS: 87804; 99212; G0381

== ENCOUNTER 2024-12-13 12:51 | Emergency (ER) | payer OTHER, SELFPAY ==
[2024-12-13] VITALS (17 sets, daily range): BP systolic 107–152; BP diastolic 70–96; PULSE 83–127; RESP 14–26; TEMP 36.6; O2SAT 98–100; BMI 28.3
--- NOTE | 2024-12-13 12:38 | XR_ITS ---
FINAL REPORT CLINICAL HISTORY: fall ankle deformity COMPARISON: None FINDINGS: Two views of the right foot were obtained. There is no acute fracture or dislocation. The joint spaces are intact. There is no soft tissue abnormality. IMPRESSION: No acute bony abnormality. Reviewed, Interpreted and Dictated by Kamilah Hurley MD Transcribed by Elvia Urbina Authenticated and [facility]
--- NOTE | 2024-12-13 12:38 | XR_ITS ---
FINAL REPORT CLINICAL HISTORY: fall ditsl deformity COMPARISON: None FINDINGS: Two views of the right tibia/fibula were obtained. There are distal fibular and tibial fractures described in more detail in the ankle radiograph. The more proximal tibia/fibula are intact. The knee joint is intact. IMPRESSION: Distal tibial and fibular fractures. Reviewed, Interpreted and Dictated by Kamilah Hurley MD Transcribed by Elvia Urbina Authenticated and [facility]
--- NOTE | 2024-12-13 12:38 | XR_ITS ---
FINAL REPORT CLINICAL HISTORY: fall sidtal tib fib deformity COMPARISON: None FINDINGS: Two views of the right ankle were obtained. There are comminuted fractures of the medial and posterior malleolus with up to 5 mm of displacement. There is a comminuted spiral fracture of the distal fibula extending into the ankle mortise with displacement measuring up to 12 mm. Posterior subluxation is noted in the ankle joint. IMPRESSION: Multiple fractures as above with posterior subluxation. Reviewed, Interpreted and Dictated by Kamilah Hurley MD Transcribed by Elvia Urbina Authenticated and [facility]
[2024-12-13] MEDS: FENTANYL 100MCG/2ML VIAL 100 MCG IV (12:40)
[2024-12-13] MEDS: ONDANSETRON 4MG/2ML VIAL 4 MG IV (12:42)
[2024-12-13] MEDS: KETOROLAC 30MG/ML VIAL 30 MG IV (12:42)
--- NOTE | 2024-12-13 12:42 | HMH.EDGENADL ---
Discharge Plan Disposition Patient Disposition: Home, Self-Care Chief Complaint: Extremity Injury, Lower Prescriptions Prescriptions: No Action carbamazepine 100 mg tablet,chewable 200 mg PO BID MDD 400 mg Qty: 120 5RF Rx Instructions: 1 tab po q am and 2 tabs po qhs. Increase to 2 tabs po bid if persistent pain methylprednisolone [Medrol (Reese)] 4 mg tablets,dose pack See Rx Instructions PO PER PKG DIR Qty: 21 0RF Rx Instructions: PO PER PKG DIR ciprofloxacin HCl [Cipro] 500 mg tablet 500 mg PO BID 5 Days Qty: 10 0RF buspirone 7.5 mg tablet 7.5 mg PO BID Qty: 180 1RF ergocalciferol (vitamin D2) 1,250 mcg (50,000 unit) capsule 1,250 mcg PO WEEKLY Qty: 14 0RF promethazine 25 mg tablet 25 mg PO Q6H PRN (Reason: nausea and vomiting) Qty: 20 0RF Referrals Follow up/Referrals: Radha Lowe APRN [Primary Care Provider] - See instructions Imtiaz Buchanan DO [Staff Physician] - See instructions Activity Restrictions/Add. Instructions Additional Instructions/Restrictions: At this time it was felt you are safe to be discharged home. If new or worsening symptoms please do not hesitate to return the emergency department. Do not bear weight on your ankle. Use rest, elevation. Take Tylenol and ibuprofen as needed for pain control. Please call and schedule an appointment with Dr. Buchanan early next week for your operative plan. Clinical Impressions Clinical Impression: Closed trimalleolar fracture Print Language Print Language: Russian Discharge ED Provider: Jared Zaragoza General Adult HPI General Chief complaint: Extremity Injury, Lower Stated complaint: fell on ice R ankle deformity Time Seen by Provider: 12/13/24 12:51 History of Present Illness HPI narrative: Patient is a 29-year-old female with no pertinent past medical history presents emerged part for evaluation of traumatic ankle injury. Patient had a ground-level fall while slipping on ice had a significant inversion injury to her right ankle. No ability to bear weight. Deformity noted in the field and lower extremity was immobilized with splint. Pain is severe in intensity. She is able to wiggle her toes. 100 mcg of fentanyl was administered prior to arrival. No other acute complaints at this time. Related Data Previous Rx's ?Medication ?Instructions ?Recorded carbamazepine 100 mg chewable 200 mg (2 x 100 mg) PO BID 01/29/24 tablet Trigeminal neuralgia #120 tabs methylprednisolone 4 mg tablets in See Rx Instructions PO PER PKG DIR 04/05/24 a dose pack (Medrol (Reese)) #21 tabs promethazine 25 mg tablet 25 mg PO Q6H PRN nausea and 04/15/24 vomiting #20 tabs ciprofloxacin HCl 500 mg tablet 500 mg PO BID 5 days #10 tabs 08/22/24 (Cipro) buspirone 7.5 mg tablet 7.5 mg PO BID Anxiety #180 tabs 10/28/24 ergocalciferol (vitamin D2) 1,250 1,250 mcg PO WEEKLY #14 caps 10/28/24 mcg (50,000 unit) capsule Allergies Allergy/AdvReac Type Severity Reaction Status Date / Time No Known Allergies Allergy Verified 04/08/24 09:50 [facility] Disclaimer: The information contained in this section may have been updated after the patient was seen, as this information can be updated by other users. Medical History Anemia affecting Left maxillary sinusitis Sinusitis Diarrhea Acute upper respiratory infection COVID-19 Trigeminal neuralgia of left side of face Vaginal delivery 38 weeks gestation of Oligohydramnios in third trimester Large for gestational age fetus COVID-19 affecting , antepartum Anxiety Surgical History History of wisdom tooth extraction History of spinal fusion Family History Other Hypertension Neuropathy Social History Smoking Status: Never smoker second hand exposure: No alcohol intake: never substance use type: denies use current occupational status: employed Travel in the last 8 weeks: None household members: spouse housing: house current occupation: [employer] caffeine: Yes Have you lived/traveled outside US in past 30 days?: No Contact w/someone who lives/traveled outside US past 30 days?: No Exposure to someone with infectious disease in past 14 days?: No Do you have a fever (greater than 100.4 F or 38 C)?: No Have you tested positive for COVID-19: No Exposed to someone with COVID-19 in past 14 days?: No Do you have a sore throat?: No Do you have a cough?: No Do you have any weakness?: No Do you have any diarrhea?: No Are you experiencing any unusual bleeding?: No Do you have any muscle aches/pain?: No Do you have any abdominal pain?: No Are you experiencing loss of taste or smell?: No Other Medical History Have you received the Flu Vaccine for this season: No Have you received the Pneumonia Vaccine: No ROS Obtained: Yes Systems reviewed as appropriate & no additional complaints except as documented Physical Exam General General appearance: alert and in distress Head Head exam: atraumatic and normocephalic Eye Eye exam: Present PERRL ENT ENT exam: Present mucous membranes moist Neck Neck exam: Present normal inspection Chest Chest inspection: Present normal inspection and symmetric chest wall rise Respiratory Respiratory exam: Present normal lung sounds bilaterally; Absent respiratory distress Cardiovascular Cardiovascular exam: Present normal rhythm and tachycardia Abdominal Exam Abdominal exam: Present soft; Absent tenderness Extremities Exam Extremities exam: Present other (Externally rotated right ankle. Palpable dorsal pedal pulse. Capillary refill preserved right lower extremity. Severe tenderness over the right ankle with bruising.) Neurological Exam Neurological exam: Present alert Psychiatric Psychiatric exam: Present normal affect Skin Skin exam: Present warm and dry Medical Decision Making Medical Records Screening: Per USPSTF and CDC recommendations, given the prevalence of disease in our region, it is our hospital?s policy to screen for HIV and viral Hepatitis for all patients aged 18 and over and those with ongoing risk factors. Bobby Inquiry Pt receiving controlled substance: No Vital Signs: 12/13/24 12:43 12/13/24 12:43 12/13/24 13:00 Temperature 97.8 F Temperature Source Oral Pulse Rate 114 H 115 H Pulse Rate [Right] 117 H Respiratory Rate 18 Blood Pressure 143/80 H 121/87 Blood Pressure [Right Arm] 143/80 H Blood Pressure Mean [Right Arm] 101 Blood Pressure Source [Right Arm] Automatic Cuff Blood Pressure Position [Right Arm] Sitting 02 Sat by Pulse Oximetry 100 100 100 Oxygen Delivery Method Room Air Room Air Oxygen Flow Rate (LPM) 12/13/24 13:15 12/13/24 13:30 12/13/24 13:45 Temperature Temperature Source Pulse Rate 106 H 111 H 103 H Pulse Rate [Right] Respiratory Rate Blood Pressure 121/87 134/89 134/89 Blood Pressure [Right Arm] Blood Pressure Mean [Right Arm] Blood Pressure Source [Right Arm] Blood Pressure Position [Right Arm] 02 Sat by Pulse Oximetry 100 100 100 Oxygen Delivery Method Oxygen Flow Rate (LPM) 12/13/24 14:00 12/13/24 14:30 12/13/24 14:35 Temperature Temperature Source Pulse Rate 124 H 127 H 123 H Pulse Rate [Right] Respiratory Rate 24 24 Blood Pressure 146/96 H 152/89 H 146/81 H Blood Pressure [Right Arm] Blood Pressure Mean [Right Arm] Blood Pressure Source [Right Arm] Blood Pressure Position [Right Arm] 02 Sat by Pulse Oximetry 100 98 98 Oxygen Delivery Method Nasal Cannula Oxygen Flow Rate (LPM) 2 12/13/24 14:40 12/13/24 14:45 Temperature Temperature Source Pulse Rate 122 H 125 H Pulse Rate [Right] Respiratory Rate 24 26 H Blood Pressure 148/87 H 152/92 H Blood Pressure [Right Arm] Blood Pressure Mean [Right Arm] Blood Pressure Source [Right Arm] Blood Pressure Position [Right Arm] 02 Sat by Pulse Oximetry 99 99 Oxygen Delivery Method Nasal Cannula Nasal Cannula Oxygen Flow Rate (LPM) 2 2 Orders (Tests/Meds): ED MEDICATIONS Discontinued Medications Generic Name Dose Route Start Last Admin Trade Name Roshni PRN Reason Stop Dose Admin Acetaminophen 1,000 mg 12/13/24 12:38 12/13/24 12:46 Acetaminophen 1,000mg/100ml Vial IV 12/13/24 12:39 1,000 mg ONCE ONE Administration Fentanyl Citrate 50 mcg 12/13/24 12:38 12/13/24 12:45 Fentanyl 100mcg/2ml Vial IV 12/13/24 12:39 50 mcg ONCE ONE Administration Fentanyl Citrate 100 mcg 12/13/24 13:27 Fentanyl 100mcg/2ml Vial IV 12/13/24 13:28 ONCE ONE Ketorolac Tromethamine 30 mg 12/13/24 12:38 12/13/24 12:42 Ketorolac 30mg/Ml Vial IV 12/13/24 12:39 30 mg ONCE ONE Administration Lidocaine HCl 20 ml 12/13/24 13:27 12/13/24 13:48 Lidocaine 2% 20ml Vial IJ 12/13/24 13:28 Not Given ONCE ONE Lidocaine/Epinephrine 20 ml 12/13/24 13:30 Lidocaine 2% W/Epi 1:200,000 20ml Vial IJ 12/13/24 13:31 ONCE ONE Ondansetron HCl 4 mg 12/13/24 12:38 12/13/24 12:42 Ondansetron 4mg/2ml Vial IV 12/13/24 12:39 4 mg ONCE ONE Administration Promethazine HCl 12.5 mg 12/13/24 13:50 12/13/24 13:51 Promethazine Hcl 25mg/Ml 1ml Vial IV 12/13/24 13:51 12.5 mg ONCE ONE Administration Promethazine HCl 12.5 mg 12/13/24 13:50 12/13/24 14:39 Promethazine Hcl 25mg/Ml 1ml Vial IV 12/13/24 13:51 Not Given ONCE ONE Sodium Chloride 25 ml 12/13/24 13:50 Sodium Chloride 0.9% 25ml Bag IV 12/13/24 13:51 ONCE ONE Sodium Chloride 25 ml 12/13/24 13:50 12/13/24 14:39 Sodium Chloride 0.9% 25ml Bag IV 12/13/24 13:51 Not Given ONCE ONE ORDERS Category Date Time Status CT ankle RT wo con Stat Cat Scan 12/13/24 13:29 Ordered Fibula/tibia XR right 2 views [XR tibia fibula RT 2V] Exams 12/13/24 12:38 Completed Stat XR ankle RT 2V Stat Exams 12/13/24 12:38 Completed XR foot RT 2V Stat Exams 12/13/24 12:38 Completed Medical Decision Narrative: In summary patient is a 29-year-old female past medical history described above who presents emergency department for evaluation of traumatic right ankle pain. Patient is hemodynamically stable and in severe pain upon arrival, afebrile. IV access will be obtained. 50 mcg of fentanyl will be added in addition to the 100 mcg of fentanyl she received prior to arrival. Toradol and IV Tylenol as well as IV Zofran will be administered. Differential based on history and physical exam includes fracture, severe sprain, among others. Workup will be conducted with plain films of the right lower extremity distal to the knee. X-ray informally interpreted by me, trimalleolar fracture with subluxation of the ankle joint. Case was discussed with Dr. Buchanan who recommends getting the ankle joint to 90 degrees, does not need aggressive reduction but will require operative management. Will place in a posterior slab with stirrups and will be nonweightbearing while swelling goes down and she will follow-up with Dr. Buchanan next week. CT was obtained for operative planning prior to discharge. Procedure: Procedure performed was splint placement. Procedure was facilitated by hematoma block using approximately 15 cc of 2% lidocaine with epinephrine which was infiltrated into the hematoma from the medial and lateral aspect with good effect. 100 mcg of fentanyl systemic was administered prior to procedure. Using fashion to 4 inch plaster posterior slab short splint was fashioned with stockinette, Webril, plaster. 3 inch plaster strips placed. Post capillary refill check normal. Patient tolerated the procedure well. There were no immediate complications. Critical Care Critical Care Time Critical Care Time: No
[2024-12-13] MEDS: FENTANYL 100MCG/2ML VIAL 50 MCG IV (12:45)
[2024-12-13] MEDS: ACETAMINOPHEN 1,000MG/100ML VIAL 1000 MG IV (12:46)
--- NOTE | 2024-12-13 12:55 | PC.NURSE ---
xray at bedside
--- NOTE | 2024-12-13 13:29 | CT_ITS ---
FINAL REPORT TECHNIQUE: Thin section axial CT images with coronal and sagittal reformats were performed. This study was performed with techniques to keep radiation doses as low as reasonably achievable (ALARA). Individualized dose reduction techniques using automated exposure control or adjustment of mA and/or kV according to the patient''s size were employed. CLINICAL HISTORY: trimal eval post splint COMPARISON: Radiographs earlier same day FINDINGS: There is a comminuted fracture of the distal tibia with extension primarily into the coronal plane with contiguous extension into the posterior medial malleolus. There is minimal displacement measuring up to 2 mm. There is a moderately comminuted fracture of the distal fibula extending into the lateral malleolus with up to 7 mm of displacement. There is no widening of the ankle mortise. There is no evidence of subluxation. IMPRESSION: Mildly displaced distal fibula and tibial fractures with ankle mortise intact. Reviewed, Interpreted and Dictated by Kamilah Hurley MD Transcribed by Elvia Urbina Authenticated and [facility]
[2024-12-13] MEDS: LIDOCAINE 2% w/EPI 1:200,000 20ML VIAL 20 ML IJ (13:30)
[2024-12-13] MEDS: PROMETHAZINE HCL 25MG/ML 1ML VIAL 12.5 MG IV (13:51)
--- NOTE | 2024-12-13 14:35 | PC.NURSE ---
Shaq Guzman RN, Brien Rain EMT-P, and Dr. Zaragoza at bedside for reduction and splint placement.
--- NOTE | 2024-12-13 14:52 | PC.NURSE ---
Plaster splint has set up. Dr. Zaragoza states he does not need a post reduction XRay, CT will be sufficient. Called radiology to notifiy pt is ready for ct scan. TELEVISION JOURNALIST , 3 sec & RLE pulses intact
--- NOTE | 2024-12-13 15:12 | PC.NURSE ---
pt is back in room, placed back on VS monitoring. She is drowsy but oriented x3. Reports pain is 0/10 on [employer]OTECTION [employer]IST.
[2024-12-13] MEDS: OXYCODONE 5MG IMMEDIATE RELEASE TABLET 5 MG PO (16:56)
== END 2024-12-13 18:23 | disposition home or self-care (01) ==
PROVIDERS: Emergency Provider Student in an Organized Health Care Education/Training Program; PCP Family Medicine
DX: S82.851A Displaced trimalleolar fracture of right lower leg, initial encounter for closed fracture (principal); M25.571 Pain in right ankle and joints of right foot; W00.0XXA Fall on same level due to ice and snow, initial encounter; Y93.89 Activity, other specified; Y92.9 Unspecified place or not applicable
CPT/HCPCS: 27818; 73590; 73600; 73620; 73700; 96374; 96375; 99284; J0131; J1885; J2405; J2550; J3010

== ENCOUNTER 2024-12-18 12:58 | Outpatient (CLI) | payer OTHER, SELFPAY ==
[2024-12-18 13:29] VITALS: BMI 28.3
[2024-12-18 13:34] LABS: Basophils % 0.5 % (0.1-2.0); Eosinophils # 0.1 K/mm3 (0.0-0.4); Eosinophils % 2.2 % (0.1-12.0); Hematocrit 35.8 % (37.0-47.0); Hemoglobin 11.9 g/dL (12.2-16.2); Lymphocytes # 2.1 K/mm3 (0.7-4.5); Lymphocytes % 32.8 % (10-50); Mean Corpuscular HGB Conc 33.2 g/dL (31.8-35.4); Mean Corpuscular Hemoglobin 28.3 pg (27.0-31.2); Mean Platelet Volume 9.7 fl (7.4-10.4); Monocytes # 0.5 K/mm3 (0.1-1.0); Monocytes % 7.2 % (1.7-9.3); Neutrophils # 3.6 K/mm3 (1.8-7.8); Neutrophils % 57.1 % (37.0-80.0); Platelet Count 309 K/mm3 (142-424); Red Blood Count 4.21 M/mm3 (4.20-5.40); Red Cell Distribution Width 13.1 % (11.5-17.5); White Blood Count 6.4 K/mm3 (4.8-10.8)
[2024-12-18 13:43] LABS: HCG Qualitative, Serum Negative (Negative)
[2024-12-18 13:44] LABS: Albumin Level 4.9 g/dl (3.5-5.0); Chloride 103 mmol/L (98-107); Potassium 4.2 mmoL/L (3.5-5.1); Sodium 140 mmol/L (136-145)
[2024-12-18 13:47] LABS: Alanine Aminotransferase 24 U/L (12-78); Albumin/Globulin Ratio 1.5 (1.1-1.8); Alkaline Phosphatase 37 U/L (38-126); Anion Gap 14.2 mEq/L (5-15); Aspartate Amino Transferase 33 U/L (14-36); Bilirubin,Total 0.4 mg/dl (0.2-1.3); Blood Urea Nitrogen 16 mg/dl (7-17); Carbon Dioxide 27 mmol/L (22.0-30.0); Creatinine Clearance Estimated 168 mL/min (50-200); Estimated Glomerular Filt Rate 118 ml/min (>60); GFR (African American) 143 ML/MIN (>60); Globulin 3.3 g/dL (1.3-3.2); Total Protein,Serum 8.2 g/dl (6.3-8.2)
[2024-12-18 13:48] LABS: Calcium 9.6 mg/dl (8.4-10.2); Glucose 92 mg/dl (74-100)
== END 2024-12-18 23:59 | disposition home or self-care (01) ==
LOC: PREOP 12:58
PROVIDERS: Nurse Anesthetist, Certified Registered; PCP Family Medicine; Visit Provider Orthopaedic Surgery
DX: Z01.812 Encounter for preprocedural laboratory examination (principal)
CPT/HCPCS: 80053; 84703; 85025

== ENCOUNTER 2024-12-20 06:07 | Day surgery (SDC) | payer OTHER, SELFPAY ==
[2024-12-18 13:33] VITALS: BMI 28.3
[2024-12-20] VITALS (14 sets, daily range): BP systolic 125–152; BP diastolic 74–90; PULSE 102–138; RESP 16–20; TEMP 37.4–43; O2SAT 96–100
[2024-12-20] MEDS: LACTATED RINGERS 1000ML 1,000 ML 100 ML IV (06:27)
--- NOTE | 2024-12-20 07:02 | P.PNANES_ITS ---
[facility] Disclaimer: The information contained in this section may have been updated after the patient was seen, as this information can be updated by other users. Medical History Anemia affecting Left maxillary sinusitis Sinusitis Diarrhea Acute upper respiratory infection COVID-19 Trigeminal neuralgia of left side of face Vaginal delivery 38 weeks gestation of Oligohydramnios in third trimester Large for gestational age fetus COVID-19 affecting , antepartum Anxiety Surgical History History of esophagogastroduodenoscopy (EGD) History of wisdom tooth extraction History of spinal fusion Family History Other Family history of thyroid disease Hypertension Neuropathy Social History Smoking Status: Never smoker second hand exposure: No alcohol intake: never substance use type: denies use current occupational status: employed Travel in the last 8 weeks: None household members: spouse housing: house current occupation: [employer] caffeine: Yes Have you lived/traveled outside US in past 30 days?: No Contact w/someone who lives/traveled outside US past 30 days?: No Exposure to someone with infectious disease in past 14 days?: No Do you have a fever (greater than 100.4 F or 38 C)?: No Have you tested positive for COVID-19: No Exposed to someone with COVID-19 in past 14 days?: No Do you have a sore throat?: No Do you have a cough?: No Do you have any weakness?: No Do you have any diarrhea?: No Are you experiencing any unusual bleeding?: No Do you have any muscle aches/pain?: No Do you have any abdominal pain?: No Are you experiencing loss of taste or smell?: No [employer] [facility] Anesthesia Checklist Patient Identification Patient Identification: Arm Band Structural Data Admitted From: Home Planned Operative Procedure/s: ORIF Right Ankle Consent for Planned Operative Procedure(s) Verified: Yes Verified Documents: Surgical Consent and History and Physical NPO Status Verified Time NPO: 00:00 Additional verifications Anesthesia Reactions: No Hx Blood Transfusions: No Blood Transfusion Reaction: No Airway Assessment Mallampati Score:: Class II C-Spine Mobility Assessed: Yes TMJ Mobility Assessed: Yes Dentition: Good Dentition Neurological Assessment Level of Consciousness: Awake, Alert and Appropriate Anesthesia Plan Anesthesia Risk discussed: Yes Anesthesia Plan: Verified ASA Class: I Anesthesia Type: General w/block (Right Popliteal/Adductor Canal. Risks/benefits explained, pt verbalized understanding)
[2024-12-20] MEDS: CEFAZOLIN SODIUM 2 GM in 0.9 % SODIUM CHLORIDE 100 ML IV (07:45)
--- NOTE | 2024-12-20 09:43 | XR_ITS ---
FINAL REPORT CLINICAL HISTORY: R ANKLE ORIF 1.3 MIN 3.83 mGy FINDINGS: Right ankle 3 VIEWS FINDINGS: 3 views show post ORIF changes of medial malleolus and distal fibular fractures. Fracture lines are obscured by hardware. Anatomic reduction is noted. The joint spaces appear normal. IMPRESSION: Post ORIF changes Authenticated and ERN
--- NOTE | 2024-12-20 10:01 | P.OP_ITS ---
Date of procedure: 12/20/24 Pre-op Diagnosis:: Right ankle trimalleolar fracture Post-op Diagnosis:: Same Procedure performed:: Open reduction internal fixation right trimalleolar fracture Surgeon:: Imtiaz Buchanan DO Blanket Winder Helper(s):: Dewey TIJERINA ARCHITECTURAL PROJECT MANAGER:: Xander Rain Anesthesia: GETA Estimated blood loss (mL): 0 Clinical Note:: Implants Synthes lateral malleolar plates and 4.0 cannulated screws Operative findings:: See dictation Operative note:: Patient was identified preoperatively. Right ankle marked with yes and my init ials. Transported to operative suite after undergoing a block with anesthesia. I reviewed preoperative x-rays as well as CT scan to evaluate the nature of the trimalleolar ankle fracture. Placed upon the operating bed general anesthesia ministered airway secured. Right lower extremity prepped and draped in normal sterile fashion. Once prepped and draped final operative timeout performed to identify proper patient procedure and extremity. Everyone involved in the case agreed. There is no counter indications to beginning. Did receive preoperative antibiotics. Marking pen was used to jose c plan incision over the lateral malleolus fracture site was examined with C arm. Esmarch was used to exsanguinate the extremity pneumatic tourniquet inflated to 300 mmHg. Skin knife is used to incise the skin dissection was taken down to identify the fracture site there was comminution and a short oblique fracture. Anterior comminution present which was preserved. Fracture site was cleaned hematoma removed dental hook utilized for removing small hematoma fragments from the fracture site. Then reduction maneuver performed with traction and a egkyn-mo-picxv clamp. Was able to anatomically reduce the fibula out to length this was held with the oydwl-qg-qklhs clamp and followed with a anterior to posterior lag screw this lag screw was placed in typical AO fashion and gave fixation of the lateral malleolus. The feltf-eu-zqsro clamp was left in place but the fibula plate was selected placed to the shaft with cortical screw above the fracture and then distal locking screws were placed in the plate. Followed by additional cortical screw and 1 additional locking screw proximally in the shaft this gave good fixation of the lateral malleolus fracture which was directly visualized on the x-ray. Attention was then brought to the medial ankle. The ankle mortise was intact the interoperative testing with cotton testing did not show syndesmotic instability. I then placed my attention to the medial malleolus fragment were under direct visualization on the AP and lateral views K wires were placed followed by two 4.0 mm cannulated screws to fixate the medial malleolus fragment. She had a shear fracture from superior to inferior as well on the distal tibia as seen on the preoperative CT scan clamp was placed and a gate K wire was placed for a guidewire for a screw traversing medial to lateral the distal tibia to hold fragment in place this was drilled and a 4.0 cannulated screw was placed along with a washer. This went across the fracture site for stabilization of the shearing fracture of the distal tibia. X-rays taken AP lateral oblique views irrigation the wound performed deep layers closed with Vicryl stitch subcutaneous with Vicryl strips nylon and skin for closure sterile dressing placed patient placed in a splint taken recovery in stable condition. Condition: stable Disposition: PACU Complications:: None apparent
--- NOTE | 2024-12-20 10:19 | P.PNANES_ITS ---
[facility] Anesthesia Record Part I Anesthesia Record I Intake, IV Amount: 2,200 Hydration: Adequate Estimated blood loss (mL): 0 Urine output (mL): 0 Blood Pressure: 141/82 SaO2: 97 Pulse Rate: 123 Airway Patency: Patent Respiratory Rate: 16 Temperature: 100 F Patient is:: Awake and Stable Stable to PACU at:: 10:15
[2024-12-20] MEDS: ONDANSETRON 4MG/2ML VIAL 4 MG IV (10:25)
[2024-12-20] MEDS: MORPHINE 2MG/ML SYRINGE 2 MG IV ×2 (10:25→11:05)
[2024-12-20] MEDS: PROMETHAZINE HCL 25MG/ML 1ML VIAL 6.25 MG IV (10:50)
[2024-12-20] MEDS: 0.9 % SODIUM CHLORIDE 25 ML 30 ML IV (10:50)
--- NOTE | 2024-12-20 11:08 | ECG_ITS ---
APPROVED REPORT Exam: Resting ECG HR:140 bpm ECG Measurements Heart Rate 140 AXES ME 96 P 62 QRSd 89 QRS 4 QT 328 T -1 QTc 410 Conclusion SINUS TACHYCARDIA WITH SHORT ME INTERVAL, ABNORMAL RHYTHM ECG UNCONFIRMED REPORT Electronically signed by : Gregory De Guzman MD 12/20/2024 16:10:29
--- NOTE | 2024-12-20 14:20 | SUR.PHASEI ---
1045- Susan Carbajal at bedside checking on patient. Patient states she feels SOB, 2LNC placed for comfort, sats 100% otherwise. VSS other than patient is tachycardic in the 140's- baseline is 118 from preop. VO given by Susan carbajal ADDICTIONS THERAPIST for IS to be done. VO repeated nad correct. 3 repetitions of IS performed and are as follows: 1250, 1500, 1250. 1100- Called Shaq aRin CRNA to come to bedside due to increase in tachycardia upwards of 170's. VO given for stat EKG. Vo repeated and correct. Order placed and respiratory called for stat EKG. 1103- RT at bedside doing EKG. 1108- EKG done 1110- EKG read nad interpreted by Shaq rain CRNA, appears sinus tahcycardia. VO given to allow rest of her operative fluids to run wide open. VO orders repeated nad correct. Fluids ran wide open. 1145- patient care taken over by Zoe Tovar RN.
--- NOTE | 2024-12-23 07:29 | P.PNANES_ITS ---
[facility] Anesthesia Record Part II Anesthesia Record Part II Discharge Time: 11:35 Destination: Surgical Day Care (OP Surgery) PACU nurse assessment reviewed?: Yes Patient Condition:: Good Anesthesia Complications:: None Swallowing reflex intact?: Yes Airway Patency: Patent Cyanosis?: No Blood Pressure: 131/77 SaO2: 100 Respiratory Rate: 20 Pulse Rate: 120 Temperature: 99.8 F Mental Status: Alert & Oriented Pain level:: 0 Nausea and/or vomitting:: None Intake, IV Amount: 0 Hydration: Adequate
[2024-12-23 07:30] VITALS: BP 131/77; PULSE 120; RESP 20; TEMP 37.7; O2SAT 100
== END 2024-12-20 12:45 | disposition home or self-care (01) ==
PROVIDERS: PCP Family Medicine; Visit Provider Orthopaedic Surgery
PROC: (CPT 27822; principal; 2024-12-20 07:30)
DX: S82.851A Displaced trimalleolar fracture of right lower leg, initial encounter for closed fracture (principal); W00.0XXA Fall on same level due to ice and snow, initial encounter
CPT/HCPCS: 27822; 73610; 93005; 96374; C1713; J0690; J1100; J2250; J2270; J2405; J2550; J3010; J7120

== ENCOUNTER 2025-01-02 08:21 | Outpatient (CLI) | payer OTHER, SELFPAY ==
--- NOTE | 2025-01-02 08:25 | XR_ITS ---
FINAL REPORT CLINICAL HISTORY: Rt Ankle fracture f/u COMPARISON: 12/13/2024 FINDINGS: Three views of the right ankle show interval post ORIF changes of the distal fibula and medial malleolus. There is near anatomic reduction noted of the fractures. The fracture lines remain evident. The ankle mortise is intact. IMPRESSION: Post ORIF changes. Reviewed, Interpreted and Dictated by Kamilah Hurley MD Transcribed by Elvia Urbina Authenticated and . [facility]
== END 2025-01-02 23:59 | disposition home or self-care (01) ==
LOC: RAD 08:23
PROVIDERS: PCP Family Medicine; Visit Provider Orthopaedic Surgery
DX: M25.571 Pain in right ankle and joints of right foot (principal); S82.851A Displaced trimalleolar fracture of right lower leg, initial encounter for closed fracture
CPT/HCPCS: 73610

== ENCOUNTER 2025-01-23 09:26 | Outpatient (CLI) | payer OTHER, SELFPAY ==
--- NOTE | 2025-01-23 09:28 | XR_ITS ---
FINAL REPORT CLINICAL HISTORY: Rt Ankle pain fx 12-13-24 sx 12-20-24 COMPARISON: 01/02/2025 FINDINGS: AP, oblique, and lateral views of the right ankle were obtained. Again seen are postoperative changes from ORIF of the medial and lateral malleoli. The hardware appears intact. There has been interval healing of the previously seen mid malleolar fracture. The lateral malleolar fracture appears similar to the prior study. There continues to be mild soft tissue edema. IMPRESSION: Fractures as above with some interval healing. Reviewed, Interpreted and Dictated by Yuli Rosales MD Transcribed by Elvia Urbina Authenticated and [facility]
== END 2025-01-23 23:59 | disposition home or self-care (01) ==
LOC: RAD 09:26
PROVIDERS: PCP Family Medicine; Visit Provider Orthopaedic Surgery
DX: M25.571 Pain in right ankle and joints of right foot (principal); S82.851A Displaced trimalleolar fracture of right lower leg, initial encounter for closed fracture
CPT/HCPCS: 73610

== ENCOUNTER 2025-02-20 09:12 | Outpatient (CLI) | payer OTHER, SELFPAY ==
--- NOTE | 2025-02-20 09:15 | XR_ITS ---
FINAL REPORT CLINICAL HISTORY: .sx dec 20 COMPARISON: 01/23/2025 FINDINGS: AP, oblique, and lateral views of the right ankle were obtained. There are postoperative changes from ORIF of the medial and lateral malleoli. The hardware is intact. There has been minimal interval healing of the previously seen fractures. IMPRESSION: No significant healing. Reviewed, Interpreted and Dictated by Yuli Rosales MD Transcribed by Izabella Moss Authenticated and [facility]
== END 2025-02-20 23:59 | disposition home or self-care (01) ==
LOC: RAD 09:13
PROVIDERS: PCP Family Medicine; Visit Provider Orthopaedic Surgery
DX: Z98.890 Other specified postprocedural states (principal); S82.851A Displaced trimalleolar fracture of right lower leg, initial encounter for closed fracture
CPT/HCPCS: 73610

== ENCOUNTER 2025-03-20 09:03 | Outpatient (CLI) | payer OTHER, SELFPAY ==
--- NOTE | 2025-03-20 09:06 | XR_ITS ---
FINAL REPORT CLINICAL HISTORY: Rt Ankle Fx COMPARISON: 02/20/2025 FINDINGS: RIGHT ANKLE Three views were obtained. There are post-ORIF changes of the medial malleolus and distal fibula. Fracture line of the fibula is slightly less distinct than previous consistent with healing fracture. There is near complete healing of the medial malleolus. Fracture hardware is stable. IMPRESSION: Post-ORIF changes with healing fractures. Reviewed, Interpreted and Dictated by Kamilah Hurley MD Transcribed by Izabella Moss Authenticated and [facility]
== END 2025-03-20 23:59 | disposition home or self-care (01) ==
LOC: RAD 09:04
PROVIDERS: PCP Nurse Practitioner Family; Visit Provider Orthopaedic Surgery
DX: S82.851D Displaced trimalleolar fracture of right lower leg, subsequent encounter for closed fracture with routine healing (principal)
CPT/HCPCS: 73610

== ENCOUNTER 2025-04-17 09:14 | Outpatient (CLI) | payer OTHER, SELFPAY ==
--- NOTE | 2025-04-17 09:17 | XR_ITS ---
FINAL REPORT TECHNIQUE: Right ankle 3 views CLINICAL HISTORY: Right ankle fx dec 13 surgery dec 20 COMPARISON: 03/20/2025 FINDINGS: RIGHT ANKLE: 3 images of the right ankle were obtained. There is a sideplate and screws present in the distal fibula. There are larger screws anchoring the medial malleolus. There is no evidence of acute fracture or dislocation. The ankle mortise is intact. There is no soft tissue abnormality identified. IMPRESSION: Postoperative changes as described, without acute bony abnormality identified. Reviewed, Interpreted and Dictated by Dustin Wade MD Transcribed by Brooklynn Domínguez Authenticated and . [facility]
--- OUTSIDE RECORDS SUMMARY | 2025-04-17 09:17 | XMS_ITS | Clinical Summary ---
Author Organization Healthcare Address [address] [place] [address] Care Team Providers Care Ironer Hand Name Role Phone BennettSaigege Baez APRN Primary Care Provider + Allergies No known active allergies Medications methocarbamol (Robaxin) 750 MG tablet Take 1 tablet (750 mg) by mouth 3 (three) times a day. 90 tablet 11/15/2024 Active Social History Tobacco Use Types Packs/Day Years Used Date Smoking Tobacco: Never Assessed Comments Unknown Sex and Gender Information Value Date Recorded Sex Assigned at Not on file Legal Sex Female 7:12 PM EDT Gender Identity Not on file Sexual Orientation Not on file Last Filed Vital Signs Vital Sign Reading Time Taken Comments Blood Pressure 131/78 11/15/2024 3:12 PM EST Pulse 84 11/15/2024 3:12 PM EST Temperature - - Respiratory Rate - - Oxygen Saturation 97% 11/15/2024 3:12 PM EST Inhaled Oxygen Concentration - - Weight 76.2 kg (168 lb) 11/15/2024 3:12 PM EST Height 167.6 cm (5' 6 ) 11/15/2024 3:12 PM EST Body Mass Index 27.12 11/15/2024 3:12 PM EST Plan of Treatment Upcoming Encounters Date Type Department Care Team (Late st Contact Info) Description 06/12/2025 8:30 AM EDT [facility] [address] [place] [id number] Ivory Farooq, DDS [address] [place] [phone] Health Maintenance Due Date Last Done Comments Dental Oral Exam 1995 Dental Prophylaxis 1995 Dental X-Ray: Bitewings 1995 Dental X-Ray: Full Mouth 1995 [facility]-Depression Screening 1995 [facility]-HIV Screening 1995 [facility]-Hepatitis C Screening 1995 [facility]-Infant/Child/Adol SDOH Screenings 1995 [facility]-Varicella Vaccines (1 of 2 - 13+ 2-dose series) 2008 HPV Vaccines (1 - 3-dose series) 2010 [facility]- SDOH Screenings 2013 [facility]-Adult SDOH Screenings 2013 [facility]-Hepatitis B Vaccines (1 of 3 - 19+ 3-dose series) 2014 [facility]-Pap Smear 2016 [id number] Vaccine (4 - 2023- season) 2024 11/12/2021, 11/25/2020, 10/28/2020 [facility]-Influenza Vaccine (Seas[place] n Ended) 2025 [facility]-DTaP,Tdap,and Td Vaccine s (2 - Td or Tdap) 01/26/2029 01/26/2019 [facility]-Zoster Vaccines (1 of 2) 2045 [facility]-Obesity Intervention Completed 025, 08/09/2024 [facility]-HIB Vaccines Aged Out No longer e ligible based on patient's age to complete this topic [facility]-Hepatitis A Vaccines Aged Out No longer eligible based on patient's age to complete this topic [facility]-IPV Vaccines Aged Out No longer e ligible based on patient's age to complete this topic [facility]-Pneumococcal Vaccine: Pediatrics (0 to 5 Years) and At-Risk Patients (6 to 49 Years) Aged Out No longer eligible b ased on patient's age to complete this topic [facility]-Rotavirus Vaccines Aged Out No lo nger eligible based on patient's age to complete this topic Insurance [facility] Care Teams Ironer Hand Relationship Specialty Start Date End Date India Bennett, ROMINA [address] [place] [id number] PCP - General 03/12/21
== END 2025-04-17 23:59 | disposition home or self-care (01) ==
LOC: RAD 09:15
PROVIDERS: PCP Family Medicine; Visit Provider Orthopaedic Surgery
DX: S82.851A Displaced trimalleolar fracture of right lower leg, initial encounter for closed fracture (principal); Z98.890 Other specified postprocedural states
CPT/HCPCS: 73610

== ENCOUNTER 2025-04-24 08:00 | Outpatient (RCR) | payer OTHER, SELFPAY ==
--- NOTE | 2025-04-02 09:05 | HMH.PTOPEV ---
PT Outpatient Evaluation Rehab PT Outpatient Evaluation Start: 04/02/25 07:55 Freq: Status: Active Protocol: Document 04/02/25 07:56 OPAL (Rec: 04/02/25 09:05 OPAL [id number]) E-signed By Marcell Valverde, PT Outpatient Therapy Subjective History Subjective History Pt is a 29 yof who is referred to [facility] outpatient PT s/p ORIF (performed on 12/20/24) of the R ankle following a traumatic tri-malleolar fracture when she slipped on ice this past winter. Pt reports that her recovery has been unremarkable. Per Dr. Buchanan's previous office visit , X-rays show appropriate healing. Pt reports that she stopped wearing the walking boot last week and has attempted to ween off of crutches completely. Reports that she still uses the crutches intermittently. Pt reports that she had a lot of swelling early on but has not noticed as much later. Reports that she is hopeful to return to work in 3 weeks. Reports that she has a follow up with Dr. Buchanan on 04/17. 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 Chief Complaint Pain,Stiff,Swelling Symptom Type Ache,Sharp Symptoms Relieved By Ice,OTC Meds Symptoms Aggravated Standing,Physical Activity,Walking By Prior Functional None Limitations Current Functional Housework,Standing,Squatting,Recreation Activity, Limitations Walking,Stairs,Balance Symptom Description Intermittent,Activity Dependent Level of pain today 3 (0-10) Pain scale - at its 0 best (0-10) Pain scale - at its 5 worst (0-10) Ankle/Foot Eval Assistive Device Ambulation Assistive Axillary Crutches Device Palpation Tenderness right Ankle/Foot Palpation Tenderness Findings Ankle/Foot Palpation 3/4 TTP to Lateral Ankle globally Overall Comment ROM Ankle/Foot 0 Dorsiflexion w/Knee Extended Active Range Motion ( degrees) Ankle/Foot 3 Dorsiflexion w/Knee Extended Passive Range (degrees) Ankle/Foot Plantar 50 Flexion Active Range of Motion (degrees) Ankle/Foot Plantar 50 Flexion Passive Range of Motion ( degrees) Ankle/Foot Eversion 12 Active Range of Motion (degrees) Ankle/Foot Eversion 15 Passive Range of Motion (degrees) Ankle/Foot Inversion 8 Active Range of Motion (degrees) Ankle/Foot Inversion 10 Passive Range of Motion (degrees) Ankle/Foot ROM Soft Tissue Tightness,Pain Limitations MMT Ankle Dorsiflexion 2 Poor Strength Grade Ankle Plantarflexion 2 Poor Strength Grade Foot Eversion 2 Poor Strength Grade Foot Inversion 2 Poor Strength Grade Lower Extremity Functional Index Activities Today, do you or would you have any difficulty at all with: a.Any of your usual A little bit of difficulty work, housework or school activities b. Your usual Quite a bit of difficulty hobbies, recreational or sporting activities c. Getting into or A little bit of difficulty out of the bath d. Walking between No difficulty rooms e. Putting on your No difficulty shoes or socks f. Squatting A little bit of difficulty g. Lifting an object No difficulty , like a bag of groceries from the floor h. Performing light No difficulty activities around your home i. Performing heavy A little bit of difficulty activities around your home j. Getting into or No difficulty out of a car k. Walking 2 blocks A little bit of difficulty l. Walking a mile Moderate difficulty m. Going up or down Moderate difficulty 10 stairs (about 1 flight of stairs) n. Standing for 1 A little bit of difficulty hour o. Sitting for 1 No difficulty hour p. Running on even Quite a bit of difficulty ground q. Running on uneven Quite a bit of difficulty ground r. Making sharp Quite a bit of difficulty turns while running fast s. Hopping Moderate difficulty t. Rolling over in No difficulty bed LEFI Score Lower Extremity 56 Functional Index Score Miscellaneous Dx PT Eval Objective Objective Gait Assessment: - Pt ambulated 25 ft without axillary crutches. Demonstrated a step-to gait and was unable to swing L LE all the way through. Pt with decreased WB on RLE during stance phase and demonstrated early toe off during terminal stance. Figure 8 ankle: 55.4 cm Outpatient Therapy Assessment Impairments Problems/ Palpation Tenderness,Impaired Range of Motion,Impaired Impairmments Strength,Impaired Gait Pattern,Impaired Walking, Impaired Standing,Impaired Household Care,Impaired Stair Climbing,Impaired Squatting,Impaired Recreational Activities,Impaired Running,Impaired Work Activities, Impaired Balance,Subjective C/O Pain Prognosis Rehab Potential Good Comment w HEP compliance Clinical Impression Consistent with Yes Diagnosis Consistent with Displaced Trimalleolar Fx X58.321H Additional details: Surgically repaired via ORIF performed on 12/20/24. Short Term Goals Number of Weeks 4 Decreased Palpation Yes: 2/4 to TTP assessment above Tenderness Increase Range of Yes: DF to 8 degrees Motion Increase Strength Yes: 3+/5 to R ankle globally Improve Gait Pattern Yes: Symmetrical step length with ambulation without Assistive Device Increase Ability to Yes: 30 minutes without increasing symptoms Stand Decrease Edema Yes: reduce edema to 53 cm Decrease Subjective Yes: 02/06 with above assessment C/O Pain Patient to be Ind w/ Yes HEP Brooch And Bracelet Maker Goals Number of Weeks 8 Decreased Palpation Yes: 0-/ to TTP assessment above Tenderness Increase Range of Yes: Dorsiflexion to 15 to promote normal gait Motion mechanics Increase Strength Yes: 4+/5 to R ankle globally Improve Gait Pattern Yes: Normal/Symmetrical Gait mechanics without Assistive Device Increase Ability to Yes: 1 hour without increasing symptoms Stand Improve Ability to Yes: Flight of stairs without increasing symptoms Climb Stairs Improve Ability to Yes: Return to running without increasing symptoms Run Improve Tolerance to Yes: Able to do a normal day's work without increasing Work Activities symptoms Improve LEFI Score Yes: >70 Decrease Subjective Yes: 2-01/06 with above assessment C/O Pain Patient to be Ind w/ Yes Advanced HEP Outpatient Therapy Plan of Care Treatment Plan May Include Therapeutic Exercise Yes Including Home Exercise Program Manual Therapy Yes Techniques Neuromuscular Re- Yes education Therapeutic Yes Activities to Return to Previous Functional/Work Level Gait Training Yes ADL/Self Care Yes Education Thermal Modalities Yes Electrical Yes Stimulation Ultrasound/ Yes Phonophoresis Iontophoresis Yes Manual Lymphatic Yes Drainage Eval/Re-Eval Yes Frequency Times per week 2-3 Duration Number of Weeks 6-8 Addendums This patient is a No candidate for social or vocational rehab ? Patient/Guardian Yes verbally acknowledges understanding of treatment program and consents to further treatment? Patient/Guardian Yes verbally acknowledges understanding of diagnosis, prognosis and goals for treatment? Eval Complexity PT Charges 40374 - Low Complexity Shoulder/Elbow Eval Shoulder Objective Measurements Elbow Objective Measurements PHYSICIAN CERTIFICATION: I certify the specified therapy services for Briseyda Hyde are required, authorized, and reviewed every 30 days.
== END 2025-04-24 23:59 | disposition home or self-care (01) ==
LOC: PT 08:00
PROVIDERS: Visit Provider Orthopaedic Surgery
DX: S82.851A Displaced trimalleolar fracture of right lower leg, initial encounter for closed fracture (principal); W00.0XXA Fall on same level due to ice and snow, initial encounter
CPT/HCPCS: 97110; 97116; 97140; 97161; 97530

== ENCOUNTER 2025-05-08 09:37 | Outpatient (CLI) | payer OTHER, SELFPAY ==
--- NOTE | 2025-05-08 09:39 | XR_ITS ---
FINAL REPORT CLINICAL HISTORY: fx f/u states pain when walking COMPARISON: 04/17/2025 FINDINGS: RIGHT ANKLE 3 views of the right ankle were obtained. There is a sideplate and screws securing distal fibular fracture. Fracture fragments are unchanged in position. There are screws present in the medial malleolus. There is no acute fracture or dislocation. The mortise is intact. Visualized joint spaces are normally aligned. Soft tissues are unremarkable. IMPRESSION: Stable postoperative changes without acute bony abnormality. Reviewed, Interpreted and Dictated by Dustin Wade MD Transcribed by Elvia Urbina Authenticated and [facility]
--- OUTSIDE RECORDS SUMMARY | 2025-05-08 09:40 | XMS_ITS | Clinical Summary ---
Author Organization Healthcare Address [address] [place] [address] Care Team Providers Care Traffic Observer Name Role Phone BennettSaigege Baez APRN Primary [...] Description 06/12/2025 8:30 AM EDT [facility] [place] [facility] [address] [place] [phone] Ivory Farooq, DDS [address] [place] [address] Health Maintenance Due Date Last Done Comments [...] 19+ 3-dose series) 2014 [facility]-Pap Smear 2016 [id number] Vaccine (4 - 2023- season) 2024 11/12/2021, 11/25/2020, 10/28/2020 [facility]-Cervical Cancer Screening 2025 [facility]-HPV/Cotest 2025 [facility]-Influenza Vaccine (#1) 2025 [facility]-DTaP,Tdap,and Td Vaccine s (2 - [...] patient's age to complete this topic Insurance [facility] Care Teams Traffic Observer Relationship Specialty Start Date End Date India Bennett, [address] [place] [address] PCP - General 03/12/21
== END 2025-05-08 23:59 | disposition home or self-care (01) ==
LOC: RAD 09:38
PROVIDERS: PCP Nurse Practitioner Family; Visit Provider Orthopaedic Surgery
DX: S82.831D Other fracture of upper and lower end of right fibula, subsequent encounter for closed fracture with routine healing
CPT/HCPCS: 73610

== ENCOUNTER 2025-05-19 09:28 | Outpatient (CLI) | payer OTHER, SELFPAY ==
[2025-05-19 09:33] LABS: Microscopic, Urine URINE MICROSCOPIC (MICROSCOPIC)
--- OUTSIDE RECORDS SUMMARY | 2025-05-19 09:33 | XMS_ITS | Clinical Summary ---
Author Organization [facility] Address [address] [place] [address] Care Team Providers Care Gmat Instructor Name Role Phone Provider, No Known Primary Care Provider Allergies No known active allergies Medications Vit-Fe Fumarate-FA ( 27-1) 27-1 MG tablet tablet Take by mouth Daily. Active docusate sodium 100 MG capsule Take 1 capsule by mouth 2 (Two) Times a Day. 60 each 01/27/2019 12:55 PM EDT 01/27/2019 Active busPIRone (BUSPAR) 5 MG tablet 12/03/2020 Active Active Problems No known active problems Resolved Problems Problem Noted Date Diagnosed Date Resolved Date Normal labor 01/25/2019 02/17/2021 Currently 03/01/2017 7 and not yet deliver ed in third trimester 02/28/2017 03/02/2017 Immunizations Immunization Administration Dates Next Due Tdap 01/26/2019 Family History Medical History Relation Name Comments Breast cancer Maternal Grandmother Relation Name Status Comments Maternal Grandmother Social History Tobacco Use Types Packs/Day Years Used Date Smoking Tobacco: Never Smokeless Tobacco: Never Alcohol Use Standard Drinks/Week Comments No 0 (1 standard drink = 0.6 oz pur e alcohol) Overall Financial Resource Strain (CARDIA) Sofíae r Date Recorded How hard is it for you to pa y for the very basics like food, housing, medical care, and heating? Not hard at all 12/08/2020 [facility] - Occupational Stress Questionnaire Answer Date Recorded Do you feel stress - tense, restless, nervous, or anxious, or unable to sleep at night because your mind is troubled all the time - these days? Not at all 12/08/2020 Exercise Vital Sign Answer Date Recorde d On average, how many days pe r week do you engage in moderate to strenuous exercise (like a brisk walk)? 3 days 12/08/2020 On average, how many minutes do you engage in exercise at this level? 60 min 12/08/2020 Hunger Vital Sign Answer Date Recorded Within the past 12 months, y ou worried that your food would run out before you got the money to buy more. Never true 12/08/19 21 Within the past 12 months, t he food you bought just didn't last and you didn't have money to get more. Never true 12/08/2020 PRAPARE - Transportation Answer Date Re corded In the past 12 months, has l ack of transportation kept you from medical appointments or from getting medications? No 06/2021 In the past 12 months, has l ack of transportation kept you from meetings, work, or from getting things needed for daily living? No 12/08/2020 [place] Depression Scale Answer Date Recorded Retired [place] Depression Score 0 01/25/2019 Retired EPD Scale: Thought of Harming Self Unrec ognized value 01/25/2019 Abuse Screen Answer Date Recorded Unsafe at Home or Work/School Not on file Feels Threatened by Someone? Not on file 08/2023 Does Anyone Keep You from Co ntacting Others or Doint Things Outside the Home? Not on file 08/09/2023 Physical Sign of Abuse Present Not on file 1 Housing Stability Answer Date Recorded Current Living Arrangements Not on file 07/30 Potentially Unsafe Housing Conditions Not on ja e 08/09/2023 Family and Community Support Answer Manuel e Recorded Help with Day-to-Day Activities Not on file 08/09/2023 Lonely or Isolated Not on file 08/09/2023 Employment Answer Date Recorded Do you want help finding or keeping work or a laureano b? Not on file 08/09/2023 Disabilities Answer Date Recorded Concentrating, Remembering, or Making Decisions Difficulty Not on file 08/09/2023 Doing Errands Independently Difficulty Not on fi le 08/09/2023 Education Answer Date Recorded Help with school or training? Not on file Preferred Language Not on file 08/09/2023 Comments No Sex and Gender Information Value Date Recorded Sex Assigned at Not on file Legal Sex Female 11:14 AM EDT Gender Identity Not on file Sexual Orientation Not on file Occupation Industry Job Start Date Job End Date Not on file Not on file Not on file Not on file Last Filed Vital Signs Vital Sign Reading Time Taken Comments Blood Pressure 120/86 02/17/2021 11:19 AM EDT Pulse 78 01/27/2019 8:00 AM EDT Temperature 36.6 C (97.8 F) 12/08/2020 9:23 AM EST Respiratory Rate 16 01/27/2019 8:00 AM EDT Oxygen Saturation 100% 01/25/2019 8:57 AM EDT Inhaled Oxygen Concentration - - Weight 66.2 kg (146 lb) 02/17/2021 11:19 AM EDT Height 165.1 cm (5' 5 ) 02/17/2021 11:19 AM EDT Body Mass Index 24.3 02/17/2021 11:19 AM EDT Plan of Treatment Health Maintenance Due Date Last Done Comments Annual Gynecologic Pelvic an d Breast Exam 1995 ANNUAL PHYSICAL 02/17/2017 COVID-19 Vaccine (2023-2 5 season) 2024 11/25/2020, 10/28/2020 INFLUENZA VACCINE 07/30/2025 07/20/2018 TDAP/TD VACCINES (2 - Td or Tdap) 01/26/2029 01/26/2019 HEPATITIS C SCREENING Completed 06/20/2018 Pneumococcal Vaccine 0-49 Aged Out No longer eligible based on patient's age to complete this topic Procedures Procedure Name Priority Date/Time Associated Diagnosis Comments HEPATITIS C ANTIBODY Routine 06/20/2018 from Last 3 Months or Most Recently Relevant to Health Maintenance Results * Hepatitis C Antibody (06/20/2018) External Hepatitis C Ab negative Blood us Historical Provider LAB BLOOD ORDERABLES Xi l Result from Last 3 Months or Most Recently Relevant to Health Maintenance Insurance Advance Directives * CPR (Attempt to Resuscitate) (Latest Code Status on File) Date Activated Date Inactivated Comments 01/25/2019 11:07 AM 01/27/2019 4:01 PM Question Answer Comments Code Status (Patient has no pulse and is not breathing): CPR (Attempt to Resuscitate) Medical Interventions (Patie nt has pulse or is breathing): Full * CPR (Attempt to Resuscitate) Date Activated Date Inactivated Comments 01/25/2019 9:54 AM 01/25/2019 11:07 AM Question Answer Comments Code Status (Patient has no pulse and is not breathing): CPR (Attempt to Resuscitate) Medical Interventions (Patie nt has pulse or is breathing): Full * Full Code Date Activated Date Inactivated Comments 02/28/2017 10:54 PM 03/02/2017 1:36 PM * Full Code Date Activated Date Inactivated Comments 02/27/2017 10:48 PM 02/28/2017 10:54 PM Care Teams Gmat Instructor Relationship Specialty Start Date End Date Provider, No Known [facility] [place] [address] PCP - General 10/29/16
--- OUTSIDE RECORDS SUMMARY | 2025-05-19 09:33 | XMS_ITS | Clinical Summary ---
Author Organization Healthcare Address [address] [place] [address] Care Team Providers Care Compliance Vice President Name Role Phone BennettSaigege Baez APRN Primary [...] Description 06/12/2025 8:30 AM EDT Office Visit [place] [facility] [address] [place] [phone] Ivory Farooq, DDS [address] [place] [address] Health Maintenance Due Date Last Done Comments [...] 19+ 3-dose series) 2014 [facility]-Pap Smear 2016 [id number] Vaccine (4 - 2023- season) 2024 11/12/2021, [...] patient's age to complete this topic Insurance [facility] Care Teams Compliance Vice President Relationship Specialty Start Date End Date India Bennett, [address] [place] [address] PCP - General 03/12/21
[2025-05-19 10:08] LABS: Bilirubin,Urine Negative (Negative); Color,Urine ORANGE (Yellow); Glucose,Urine (UA) TRACE (Negative); Ketones,Urine TRACE (Negative); Leukocyte Esterase,Urine 2+ (Negative); PH,Urine 5.0 (5.0-8.5); Protein,Urine 2+ (Negative); Specific Gravity, Urine 1.025 (1.005-1.030); Urobilinogen,Urine >=8.0 EU/dl (0.2)
[2025-05-19 10:25] LABS: Squamous Epithelial Cell,Urine Occasional #/hpf (0-5); WBC,Urine TNTC #/hpf (0-3)
[2025-05-19 10:26] LABS: Bacteria,Urine 2+ /lpf
== END 2025-05-19 23:59 | disposition home or self-care (01) ==
LOC: LAB 09:29
PROVIDERS: PCP Family Medicine; Visit Provider Family Medicine
DX: N39.0 Urinary tract infection, site not specified (principal)
CPT/HCPCS: 81001; 87086; 87088; 87186

== ENCOUNTER 2025-05-28 10:00 | Outpatient (RCR) | payer OTHER, SELFPAY ==
--- NOTE | 2025-04-29 11:02 | HMH.RHREAS ---
Rehab Reassessment Rehab OP Re-assessment Start: 04/29/25 09:54 Freq: Status: Active Protocol: Document 04/29/25 10:11 ELLIZETTE (Rec: 04/29/25 11:01 OPAL [id number]) E-signed By Marcell Valverde, PT Lower Extremity Functional Index Activities Today, do you or would you have any difficulty at all with: a.Any of your usual A little bit of difficulty work, housework or school activities b. Your usual A little bit of difficulty hobbies, recreational or sporting activities c. Getting into or No difficulty out of the bath d. Walking between No difficulty rooms e. Putting on your No difficulty shoes or socks f. Squatting A little bit of difficulty g. Lifting an object No difficulty , like a bag of groceries from the floor h. Performing light No difficulty activities around your home i. Performing heavy A little bit of difficulty activities around your home j. Getting into or No difficulty out of a car k. Walking 2 blocks A little bit of difficulty l. Walking a mile A little bit of difficulty m. Going up or down A little bit of difficulty 10 stairs (about 1 flight of stairs) n. Standing for 1 A little bit of difficulty hour o. Sitting for 1 No difficulty hour p. Running on even Moderate difficulty ground q. Running on uneven Moderate difficulty ground r. Making sharp A little bit of difficulty turns while running fast s. Hopping Moderate difficulty t. Rolling over in No difficulty bed LEFI Score Lower Extremity 65 Functional Index Score Rehab Re-assessment Subjective Subjective Pt reports that she is 70-75% improved this date. Reports that she is returning to surgeon next and is hopeful to get cleared to return to work. Reports that her pain is a 1-2/10 this date throughout exercises and reassessment. Pt reports that she does still notice some swelling, especially on hotter days and when she has been up on her feet for longer periods . Pt reports that she has been trying to stay on her feet for longer periods to prepare herself for a return to work. Pt reports that she can stand for 1-2 hours at a time. Pt would like to continue with PT. Objective Objective Notes LEFS: 65 (56 on IE) TTP: 1/4 to medial L ankle Figure 8: 54.1 cm ROM: - DF: 6 degrees AROM, 10 degrees PROM Gait Assessment: decreased knee flexion during loading response and decreased ankle dorsiflexion during terminal stance. Early heel off. MMT: 4/5 to R ankle globally Assessment Progress Assessment Progressing as Expected Assessment Notes Pt has undergone one month of skilled PT, presently, consisting of ankle strengthening, balance training, stretching, proprioception and gait training, to which to the patient has responded well. The pt has demonstrated modest improvements in her ankle motion and strength, as well as gait improvements. The pt continues to demonstrate mild swelling of the ankle and continues to have some mild gait defects. Pt has met several of her stated therapy goals, but she continues to present below her prior baseline. Skilled PT remains indicated to promote a return to her PLOF, to address her remaining impairments, and to promote an optimal return to work. Patient goals met ST,2,3,5,7,8 LT,6,10 Plan Plan Continue as per initial POC Frequency of Therapy 2/week Duration of therapy 4 weeks Time and Billing Re-Eval Time 9 Re-Eval Billing 1 Units Charge for PT Yes reassessment? PHYSICIAN CERTIFICATION: I certify the specified therapy services for Briseyda Hyde are required, authorized, and reviewed every 30 days.
--- NOTE | 2025-05-26 10:58 | HMH.RHREAS ---
Rehab Reassessment Rehab OP Re-assessment Start: 04/29/25 09:54 Freq: Status: Active Protocol: Document 05/26/25 10:22 OPAL (Rec: 05/26/25 10:58 OPAL [id number]) E-signed By Marcell Valverde, PT Lower Extremity Functional Index Activities Today, do you or would you have any difficulty at all with: a.Any of your usual A little bit of difficulty work, housework or school activities b. Your usual Moderate difficulty hobbies, recreational or sporting activities c. Getting into or No difficulty out of the bath d. Walking between No difficulty rooms e. Putting on your No difficulty shoes or socks f. Squatting A little bit of difficulty g. Lifting an object No difficulty , like a bag of groceries from the floor h. Performing light No difficulty activities around your home i. Performing heavy Moderate difficulty activities around your home j. Getting into or No difficulty out of a car k. Walking 2 blocks No difficulty l. Walking a mile Moderate difficulty m. Going up or down A little bit of difficulty 10 stairs (about 1 flight of stairs) n. Standing for 1 A little bit of difficulty hour o. Sitting for 1 No difficulty hour p. Running on even Moderate difficulty ground q. Running on uneven Quite a bit of difficulty ground r. Making sharp A little bit of difficulty turns while running fast s. Hopping A little bit of difficulty t. Rolling over in No difficulty bed LEFI Score Lower Extremity 63 Functional Index Score Rehab Re-assessment Subjective Subjective Pt reports that she is 85-90% improved this date. Reports that she is returning to work on June 08. Pt reports that she believes she is ready to return and was told that they will help ease her back into the full work load. The pt reports that her biggest difficulty continues to be walking. She reports that she knows she still has a limp but has been trying to correct it. Pt also reports that her ankle will ache after she has been walking on it for long periods. The pt reports that she has not ran. Pt reports that she would like to continue PT after she returns to work. Pt reports her pain throughout today's reassessment did not exceed a 2/10. Objective Objective Notes LEFS: 63 (65 on last RA) (56 on IE) TTP: 0/4 to R ankle Figure 8: 52.9 cm ROM: - DF: 10 degrees AROM, 12 degrees PROM Gait Assessment: decreased knee flexion during loading response and decreased ankle dorsiflexion during terminal stance. Early heel off. MMT: 4+/5 to R ankle globally Assessment Progress Assessment Progressing as Expected Assessment Notes Pt has undergone 2 months of skilled PT thus far, consisting of R ankle strengthening, balance training, gait training, motor control and pain modulation. The pt has responded well to PT, reporting decreased levels of pain, slightly improved gait mechanics and balance. Pt continues to present with a deficit into dorsflexion, although her active motion has improved. 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 The pt continues to demonstrate impaired gait mechanics, difficulty with walking and standing for longer distances. The pt would continue to benefit from skilled PT to address her remaining impairments. Patient goals met ST,2,3,5,6,7,8 LT,3,5,6,9,10 Plan Plan Continue as per initial POC. Focus on improving Gait mechanics. Frequency of Therapy 2-3/week Duration of therapy 4 weeks Time and Billing Re-Eval Time 10 Re-Eval Billing 1 Units Charge for PT Yes reassessment? PHYSICIAN CERTIFICATION: I certify the specified therapy services for Briseyda Hyde are required, authorized, and reviewed every 30 days.
== END 2025-05-28 23:59 | disposition home or self-care (01) ==
LOC: PT 10:00
PROVIDERS: Visit Provider Orthopaedic Surgery
DX: S82.851A Displaced trimalleolar fracture of right lower leg, initial encounter for closed fracture (principal); X58.XXXA Exposure to other specified factors, initial encounter
CPT/HCPCS: 97110; 97140; 97164; 97530

== ENCOUNTER 2025-06-23 14:00 | Outpatient (RCR) | payer OTHER, SELFPAY | END 2025-06-23 23:59 | disposition home or self-care (01) | LOC: PT 14:00 | PROVIDERS: Visit Provider Orthopaedic Surgery | DX: S82.851A Displaced trimalleolar fracture of right lower leg, initial encounter for closed fracture (principal) | CPT/HCPCS: 97110; 97140; 97530 ==

== ENCOUNTER 2025-09-13 10:18 | Outpatient (CLI) | payer OTHER, SELFPAY ==
--- OUTSIDE RECORDS SUMMARY | 2025-07-30 15:15 | XMS_ITS | Encounter Summary ---
Author Organization Healthcare Address [address] [place] [address] Care Team Providers Care Equal Opportunity Assistant Name Role Phone BennettIndia Nestor VANEGAS Primary Care Provider + Encounter Details Date Type Department Care Team (Latest Contact Info) Description 07/30/2025 4:15 PM EDT Office Visit [place] [facility] [address] [place] [address] Ivory Farooq, DDS [address] [place] [phone] Nila Bhandari Masticatory myalgia (Primary Dx); Bilateral temporomandibular joint pain; Migraine without aura and without status migrainosus, not intractable; Trigeminal neuropathy Social History Tobacco Use Types Packs/Day Years Used Date Smoking Tobacco: Never Assessed Comments Unknown Sex and Gender Information Value Date Recorded Sex Assigned at Not on file Legal Sex Female 7:12 PM EDT Gender Identity Not on file Sexual Orientation Not on file documented as of this encounter Last Filed Vital Signs Vital Sign Reading Time Taken Comments Blood Pressure 115/79 07/30/2025 4:10 PM EDT Pulse 98 07/30/2025 4:10 PM EDT Temperature 36.5 C (97.7 F) 07/30/2025 4:10 PM EDT Respiratory Rate - - Oxygen Saturation 97% 07/30/2025 4:10 PM EDT Inhaled Oxygen Concentration - - Weight 75.5 kg (166 lb 7.2 oz) 07/30/2025 4:10 P M EDT Height 167.6 cm (5' 6 ) 07/30/2025 4:10 PM EDT Body Mass Index 26.87 07/30/2025 4:10 PM EDT documented in this encounter Miscellaneous Notes * Progress Notes - Nila Bhandari - 07/30/2025 4:15 PM EDT Follow-up appointment regarding a chief complaint of jaw pain. HISTORY OF PRESENT ILLNESS : Ms. Briseyda Hyde reported significant improvement in her symptoms since her previous visit. The complaint was described as dull, with an average intensity of 0-1/10. Today she has no pain. The patient reported overall improvement, as the pain occurs on approximately 15 days per month, typically around ovulation and during premenstrual syndrome. She has been more consistent with self-care measures and being aware of aggravating factors, (mostly clenching). She noted that the trial of meloxicam produced minimal benefit, however amitriptyline has been veryhelpful, improving sleep and reducing morning muscle tension. Regarding our BMP have not yet been scheduled due to her busy schedule, but she is still interestedin pursuing it. She denied bringing her oral appliance today. She reports wearing it only two nights, noting it aggravated her symptoms. 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 MEDICAL HISTORY/MEDICATIONS: Past Medical History[1] Family History[2] Surgical History[3] Medications Ordered Prior to Encounter[4] Allergies[5] CLINICAL EXAMINATION: Visit Vitals BP 115/79 Pulse 98 Temp 36.5 ??C (97.7 ??F) Ht 1.676 m (5' 6 ) Wt 75.5 kg (166 lb 7.2 oz) SpO2 97% BMI 26.87 kg/m?? Muscle and joint palpation: The following structures were tender to palpation: - Bilateral temporalis; (familiar) no referred pain was reported. - Bilateral masseter; (familiar) no referred pain was reported. - Left temporal tendon; (familiar). Extraoral and Intraoral examination: No changes since previous visit. Range of movement: Max comfortable opening 42 mm - improved from 25mm. PROCEDURES PERFORMED: No procedures were performed today. ASSESSMENT: Masticatory Myalgia TMJ Arthralgia Migraine w/o Aura Post Traumatic Trigeminal Neuropathy (PTNP) Left V2 CONTRIBUTING FACTORS: teeth clenching/grinding multiple dental procedures. TREATMENT RECOMMENDATIONS: Reassurance and education of patient's condition. All of the patient's questions were answered. Continue self-care therapy suggestions provided. Begin with referral to behavioral health team for evaluation and management with behavioral strategies for the management of pain. Discontinue using bite guard. Advised to bring during net appointment. We will evaluate her currentappliance.Adjust as needed or pre-authorize for a new one. Continue amitriptyline 10 mg once nightly. Pt reported she does not need a refill currently. Consider Trp injections or Botox if needed after re-assessment. Patient to return to clinic in 3 months for follow up. [1] Past Medical History: Diagnosis Date Anxiety Headache High blood cholesterol [2] No family history on file. [3] No past surgical history on file. [4] Current Outpatient Medications on File Prior to Visit Medication Sig Dispense Refill amitriptyline (Elavil) 10 MG tablet Take 1 tablet by mouth nightly. 30 tablet 1 busPIRone (Buspar) 7.5 MG tablet Take 1 tablet by mouth 2 times a day. ergocalciferol 1.25 MG (65007 UT) capsule Take 1 capsule by mouth 1 time per week. meloxicam (Mobic) 15 MG tablet Take 1 tablet by mouth daily. 21 tablet 0 methocarbamol (Robaxin) 750 MG tablet Take 1 tablet (750 mg) by mouth 3 (three) times a day. 90 tablet 0 No current facility-administered medications on file prior to visit. [5] No Known Allergies Cosigned by Ivory Farooq DDS at 07/31/2025 9:30 AM EDT Associated attestation - Ivory Farooq DDS - 07/31/2025 9:30 AM EDT I saw and evaluated the patient, I discussed the case with the dean of students and agree with the notes as documented below. documented in this encounter Plan of Treatment Upcoming Encounters Date Type Department Care Team (Late st Contact Info) Description 11/06/2025 3:15 PM EST Office Visit [place] [facility] [address] [place] [address] Eliseo Salazar DDS [address] [facility] [address] [place] [address] Gretel Deutsch documented as of this encounter Visit Diagnoses Diagnosis Masticatory myalgia- Primary Bilateral temporomandibular joint pain Migraine without aura and without status migrainosus, not intractable Trigeminal neuropathy Unspecified trigeminal nerve disorder documented in this encounter Additional Health Concerns Assessment Noted Time A Body Mass Index follow-up plan has been documented for the patient 07/31/2025 9:33 AM EDT documented as of this encounter Care Teams Equal Opportunity Assistant Relationship Specialty Start Date End Date India Bennett, CLAMP REMOVER [address] [place] [address] PCP - General 03/12/21 documented as of this encounter
--- OUTSIDE RECORDS SUMMARY | 2025-09-13 10:23 | XMS_ITS | Encounter Summary ---
Author Organization Healthcare Address [address] [place] [address] Care Team Providers Care Display Director Name Role Phone India Bennett [employer] Primary Care Provider + Encounter Details Date Type Department Care Team (Latest Contact Info) Description 07/30/2025 Travel Social History Tobacco Use Types Packs/Day Years Used Date Smoking Tobacco: Never Assessed Comments Unknown Sex and Gender Information Value Date Recorded Sex Assigned at Not on file Legal Sex Female 7:12 PM EDT Gender Identity Not on file Sexual Orientation Not on file documented as of this encounter Plan of Treatment Upcoming Encounters Date Type Department Care Team (Late st Contact Info) Description 11/06/2025 3:15 PM EST Office Visit [place] [facility] [address] [place] [address] Eliseo Salazar, DDS [address] [place] [address] Gretel Deutsch documented as of this encounter Visit Diagnoses Not on filedocumented in this encounter Additional Health Concerns Assessment Noted Time A Body Mass Index follow-up plan has been documented for the patient 07/31/2025 9:33 AM EDT documented as of this encounter Care Teams Display Director Relationship Specialty Start Date End Date India Bennett APRN [address] [place] [address] PCP - General 03/12/21 documented as of this encounter
--- OUTSIDE RECORDS SUMMARY | 2025-09-13 10:23 | XMS_ITS | Encounter Summary ---
Author Organization Healthcare Address [address] [place] [address] Care Team Providers Care City Plant Supervisor Name Role Phone India Bennett APRN Primary Care Provider + Encounter Details Date Type Department Care Team (Late st Contact Info) Description 08/18/[address] [facility] [address] [place] [address] Nila Bhandari Social History Tobacco Use Types Packs/Day Years [...] Description 11/06/2025 3:15 PM EST Office Visit [facility] [address] [place] [address] Eliseo Salazar, DDS [address] [address] Gretel Deutsch documented as of this encounter Visit Diagnoses Not on filedocumented in this encounter Additional Health Concerns Assessment Noted Time A Body Mass Index follow-up plan has been documented for the patient 07/31/2025 9:33 AM EDT documented as of this encounter Care Teams City Plant Supervisor Relationship Specialty Start Date End Date India Bennett, PROPERTY TECHNICIAN [address] [phone] PCP - General 03/12/21 documented as of this encounter
--- OUTSIDE RECORDS SUMMARY | 2025-09-13 10:26 | XMS_ITS | Clinical Summary ---
Author Organization [facility] Address [address] [place] [address] Care Team Providers Care Fur Tinter Name Role Phone Provider, No Known Primary Care Provider [phone] Allergies No known active allergies Medications Vit-Fe [...] and heating? Not hard at all 12/08/2020 [facility] [place] [facility] - Occupational Stress Questionnaire Answer Date [...] things needed for daily living? No 12/08/2020 [place] Depression Scale Answer Date Recorded [place] Depression Scale Total 0 01/25/2019 The thought of harming myself has occurred to me . Unrecognized value 01/25/2019 Abuse Screen Answer Date Recorded [...] d Breast Exam 1995 ANNUAL PHYSICAL 02/17/2017 INFLUENZA VACCINE 05/30/2025 07/20/2018 TDAP/TD VACCINES (2 - Td or Tdap) 01/26/2029 019 HEPATITIS C SCREENING Completed 06/20/2018 Pneumococcal Vaccine 0-49 Aged Out No longer eligible based on patient's age to complete this topic Procedures Procedure Name Priority Date/Time Associated Diagnosis Comments HEPATITIS C ANTIBODY Routine 06/20/2018 from Last 3 Months or Most Recently Relevant to Health Maintenance Results * Hepatitis C Antibody (06/20/2018) External Hepatitis C Ab negative Blood Historical Provider LAB BLOOD ORDERABLES Xi l Result from Last 3 Months or Most Recently Relevant to Health Maintenance Insurance [facility] [employer] PPO Advance Directives * CPR (Attempt to Resuscitate) [...] 10:48 PM 02/28/2017 10:54 PM Care Teams Fur Tinter Relationship Specialty Start Date End Date Provider, No Known [facility] [place] [address] PCP - General 10/29/16
--- OUTSIDE RECORDS SUMMARY | 2025-09-13 10:26 | XMS_ITS | Clinical Summary ---
Author Organization [facility] Address [address] [place] [address] Care Team Providers Care Ball Shagger Name Role Phone BennettIndia Nestor VANEGAS Primary Care Provider + Allergies No known active allergies Medications methocarbamol (Robaxin) 750 MG tablet Take 1 tablet (750 mg) by mouth 3 (three) times a day. 90 tablet 5 Active busPIRone (Buspar) 7.5 MG tablet Take 1 tablet by mouth 2 times a day. 4 Active ergocalciferol 1.25 MG (37351 UT) capsule Take 1 capsule by mouth 1 time per week. 5 Active meloxicam (Mobic) 15 MG tablet Take 1 tablet by mouth daily. 21 tablet 5 Active amitriptyline (Elavil) 10 MG tablet Take 1 tablet by mouth nightly. 30 tablet 1 5 Active amitriptyline (Elavil) 10 MG tablet Take 1 tablet by mouth nightly. 30 tablet 1 5 08/18/20 25 Discontinu ed(Reorder ) Encounters Date Type Department Care Team Description 08/18/2025 Orders Only [facility]facial [facility] Clinic [facility] Room [address] [place] [address] Nila Bhandari 07/30/2025 4:15 PM EDT Office Visit [facility] [address] [place] [address] Ivory Farooq, DDS Nila Bhandari Masticatory myalgia (Primary Dx); Bilateral temporomandibular joint pain; Migraine without aura and without status migrainosus, not intractable; Trigeminal neuropathy 07/30/2025 Travel 06/26/2025 Telephone [facility] Room [address] [place] [address] Rosa Martinez 06/14/2025 Orders Only [facility] [address] [place] [phone] Nila Bhandari 06/13/2025 Telephone [facility]facial Pain Clinic Orofacial Pain [facility] [address] [place] [phone] Kirsten Jones from Last 3 Months Social History Tobacco Use Types Packs/Day Years [...] Mass Index 26.87 07/30/2025 4:10 PM EDT Plan of Treatment Upcoming Encounters Date Type Department Care Team (Late st Contact Info) Description 11/06/2025 3:15 PM EST Office Visit [facility] Pain Clinic Orofacial Pain [facility] Room [facility] [address] [place] [phone] Eliseo Salazar, DDS [address] [place] [address] Gretel Deutsch Health Maintenance Due Date Last Done Comments Dental Oral Exam 1995 Dental Prophylaxis 1995 Dental X-Ray: Bitewings 1995 Dental X-Ray: Full Mouth 1995 [facility]-Depression Screening 1995 [facility]-HIV Screening 1995 [facility]-Hepatitis C Screening 1995 [facility]-Infant/Child/Adol SDOH Screenings 1995 [facility]-Varicella Vaccines (1 of 2 - 13+ 2-dose series) 2008 [facility]- SDOH Screenings 2013 [facility]-Adult SDOH Screenings 2013 [facility]-Hepatitis B Vaccines (1 of 3 - 19+ 3-dose series) 2014 [facility]-Pap Smear 2016 HPV Vaccines (1 - 3-dose SCDM series) 2022 [facility]-Cervical Cancer Screening 2025 [facility]-HPV/Cotest 2025 [id number] Vaccine ( - 2024- season) 2025 11/12/2021, 11/25/2020, 10/28/2020 [facility]-Influenza Vaccine (#1) 2025 [facility]-DTaP,Tdap,and Td Vaccines (2 - Td or Tdap) 01/26/2029 01/26/2019 [facility]-Zoster Vaccines (1 of 2) 2045 [facility]-Obesity Intervention Completed 025, 06/12/2025, 11/15/2024, Additional history exists [facility]-HIB Vaccines Aged Out No longer e [...] 49 Years) Aged Out No longer eligible based on patient's age to complete this topic [facility]-Rotavirus Vaccines Aged Out No lo nger eligible based on patient's age to complete this topic Insurance [facility] Care Teams Ball Shagger Relationship Specialty Start Date End Date India Bennett, INSPECTOR [employer] [address] [place] [address] PCP - General 03/12/21
[2025-09-13 10:40] LABS: Hematocrit 37.0 % (37.0-47.0); Hemoglobin 12.6 g/dL (12.2-16.2); Immature Granulocytes % 0.1 %; Mean Corpuscular HGB Conc 34.1 g/dL (31.8-35.4); Mean Corpuscular Hemoglobin 29.3 pg (27.0-31.2); Mean Corpuscular Volume 86.0 fl (81-99); Nucleated Red Blood Cells % 0 %; Platelet Count 310 K/mm3 (142-424); Red Blood Count 4.30 M/mm3 (4.20-5.40); Red Cell Distribution Width-SD 38.7 fL; White Blood Count 6.9 K/mm3 (4.8-10.8)
[2025-09-13 11:43] LABS: Alanine Aminotransferase 21 U/L (12-78); Albumin Level 4.8 g/dl (3.5-5.0); Albumin/Globulin Ratio 1.7 (1.1-1.8); Alkaline Phosphatase 49 U/L (38-126); Anion Gap 11.1 mEq/L (5-15); Aspartate Amino Transferase 27 U/L (14-36); Bilirubin,Total 0.4 mg/dl (0.2-1.3); Blood Urea Nitrogen 12 mg/dl (7-17); Calcium 9.5 mg/dl (8.4-10.2); Carbon Dioxide 28 mmol/L (22.0-30.0); Chloride 102 mmol/L (98-107); Cholesterol 205 mg/dl (140-200); Creatinine,Serum 0.70 mg/dl (0.52-1.04); Estimated Glomerular Filt Rate 98 ml/min (>60); GFR (African American) 119 ML/MIN (>60); Globulin 2.9 g/dL (1.3-3.2); Glucose 89 mg/dl (74-100); HDL Cholesterol 37 mg/dl (40-60); Potassium 4.1 mmoL/L (3.5-5.1); Sodium 137 mmol/L (136-145); Total Protein,Serum 7.7 g/dl (6.3-8.2); Triglycerides 283 mg/dl (30-150)
[2025-09-13 12:00] LABS: 25-OH Vitamin D, Total 27.0 ng/mL (30-100)
[2025-09-13 12:13] LABS: Thyroid Stimulating Hormone 0.53 uIU/mL (0.465-4.68)
== END 2025-09-13 23:59 | disposition home or self-care (01) ==
LOC: LAB 10:20
PROVIDERS: PCP Family Medicine; Visit Provider Family Medicine
DX: E55.9 Vitamin D deficiency, unspecified (principal); F41.9 Anxiety disorder, unspecified; E78.00 Pure hypercholesterolemia, unspecified
CPT/HCPCS: 36415; 80053; 80061; 82306; 84443; 85025